=== PATIENT | female | born 1930 | race Caucasian/White ===

== ENCOUNTER 2017-06-13 15:03 | Emergency (ER) | payer OTHER, MEDICARE ==
[~2017-06-13] VITALS: Ht 144.8 cm; Wt 60.2 kg
[~2017-06-13 15:03] MED LIST: AMLO5TAB2 PO; APR25 PO; ASPEC81 PO; CALC0.2510 PO; CLC100X PO; COD LIVER OIL PO; DOFE125C PO; ENOX1INJ10 SQ; LSX20 PO; METO50TA16 PO; NTRSL3 UT; POLY335025 PO; PRLSR20 PO; SUPER B COMPLEX PO; WARF2TAB PO; WARF3TAB PO
[2017-06-13 15:05] VITALS: TEMP 37; Ht 144.8 cm; Wt 60.2 kg
[2017-06-13] MEDS ORDERED: LIDO/EPINEPHRINE/SOD BICARB 20 ML VIAL INFIL ONE (15:17)
[2017-06-13] MEDS ORDERED: ASPI81TA28 PO (15:42)
[2017-06-13] MEDS ORDERED: CALC-20 PO (15:42)
[2017-06-13] MEDS ORDERED: POLY335019 PO (15:42)
[2017-06-13] MEDS ORDERED: HYDR-4716 PO (15:42)
[2017-06-13] MEDS ORDERED: FURO-85 PO (15:42)
[2017-06-13] MEDS ORDERED: WARF2TAB PO ×2 (15:42)
[2017-06-13] MEDS ORDERED: METO50TA16 PO (15:42)
--- NOTE | 2017-06-13 15:58 | DIAGNOSTIC IMAGING REPORT ---
HEAD CT NONCONTRAST CT DOSE: 537.48 mGy.cm HISTORY: fall on coumadin. Rt supraorbital laceration. TECHNIQUE: Multiaxial CT images of the head were performed without the use of intravenous contrast. Automated exposure control was utilized for this study. A dose lowering technique was utilized adhering to the principles of ALARA. Comparison: None. Findings: The paranasal sinuses and mastoid air cells are clear. The calvarium and skull base are intact. There is no mass, hematoma, midline shift, acute infarct. White matter hypodensity is nonspecific but suggestive of microvascular ischemic change. The ventricles and sulci demonstrate mild age-related involutional changes. Right supraorbital soft tissue swelling with a small laceration. Impression: No acute intracranial abnormality. Right supraorbital soft tissue swelling with a small laceration. Electronically signed by: Chase Carrasco M.D. 06/13/2017 3:56 PM Dictated Date/Time: 06/13/2017 3:53 PM
--- NOTE | 2017-06-13 16:14 | EMERGENCY ROOM VISIT NOTE ---
History Report prepared by Cathi: Miguelito Priest Under the Supervision of: Dr. Hai Petersen D.O. First contact with patient: 15:10 Chief Complaint: FALL Stated Complaint: HEAD LACERATION FROM FALL History of Present Illness The patient is an 86 year old female who presents to the Emergency Room with complaints of sudden mechanical fall that occurred prior to arrival this afternoon. She is noted to have a resulting forehead laceration. The patent states that she was going into the door of the rehab [facility] for her '[facility] rehab, and she stumbled and fell. She notes that other than the laceration on her head, nothing else is bothering her. The patient adds that she is on Coumadin. Source of History: patient Onset: Prior to arrival this afternoon Position: other (global - fall) Quality: other (mechanical) Timing: other (sudden) Note: Associated symptoms: Forehead laceration from fall. Denies any other complaints. Review of Systems See HPI for pertinent positives & negatives. A total of 10 systems reviewed and were otherwise negative. Past Medical & Surgical Medical Problems: (1) Atrial fibrillation (2) Benign hypertension (3) CHF (congestive heart failure) (4) Chronic back pain (5) CKD (chronic kidney disease) stage 3, GFR 30-59 ml/min (6) Coronary artery disease (7) GERD (gastroesophageal reflux disease) (8) Hypertension Surgical Problems: (1) Status post cardiac catheterization (2) Status post cardiac pacemaker procedure (3) Status post coronary artery stent placement (4) Status post hysterectomy (5) Status post total knee replacement Family History Family history omitted secondary to patient's advanced age. Social History Smoking Status: Never Smoker Marital Status: Housing Status: lives with family Occupation Status: retired Current/Historical Medications Scheduled Aspirin (Aspirin Ec), 81 MG PO DAILY Calcium Carbonate-Vitamin D (Calcium 600 + D), 1 TAB PO BID Furosemide (Lasix), 20 MG PO PRN Hydralazine HCl (Hydralazine HCl), 1 TAB PO BID Metoprolol Tartrate (Lopressor) (Lopressor), 50 MG PO BID Polyethylene Glycol 3350 (Miralax), 17 GM PO DAILY Warfarin Sodium (Coumadin), 2 MG PO 4XWK Warfarin Sodium (Coumadin), 4 MG PO MWF Allergies Coded Allergies: Lisinopril (Verified Allergy, Mild, OTHER, 06/13/17) MAKES ME FEEL FUNNY Adhesives (Verified Allergy, Unknown, ., 06/13/17) Amiodarone (Verified Allergy, Unknown, ., 06/13/17) Physical Exam Vital Signs Date Time Temp Pulse Resp B/P (MAP) Pulse Ox O2 Delivery O2 Flow Rate FiO2 06/13/17 15:05 37.0 71 20 162/101 99 Room Air Physical Exam CONSTITUTIONAL/VITAL SIGNS: Reviewed / noted above. GENERAL: Non-toxic in appearance. INTEGUMENTARY: Warm, dry, and [place]. HEAD: 3.0 cm laceration in the supraorbital region. EYES: without scleral icterus or trauma. ENT/OROPHARYNX: clear and moist. LYMPHADENOPATHY/NECK: Is supple without lymphadenopathy or meningismus. RESPIRATORY: Lungs clear and equal. CARDIOVASCULAR: Regular rate and rhythm. GI/ABDOMEN: Soft and nontender. No organomegaly or pulsatile mass. No rebound or guarding. Normal bowel sounds. EXTREMITIES: Warm and well perfused. BACK: No CVA tenderness. NEUROLOGICAL: Intact without focal deficits. PSYCHIATRIC: normal affect. MUSCULOSKELETAL: Normally developed with good muscle tone. Medical Decision & Procedures ER Provider Diagnostic Interpretation: CT results as stated below per my review and radiologist interpretation: HEAD CT NONCONTRAST CT DOSE: 537.48 mGy.cm HISTORY: fall on coumadin. Rt supraorbital laceration. TECHNIQUE: Multiaxial CT images of the head were performed without the use of intravenous contrast. Automated exposure control was utilized for this study. A dose lowering technique was utilized adhering to the principles of ALARA. Comparison: None. Findings: The paranasal sinuses and mastoid air cells are clear. The calvarium and skull base are intact. There is no mass, hematoma, midline shift, acute infarct. White matter hypodensity is nonspecific but suggestive of microvascular ischemic change. The ventricles and sulci demonstrate mild age-related involutional changes. Right supraorbital soft tissue swelling with a small laceration. Impression: No acute intracranial abnormality. Right supraorbital soft tissue swelling with a small laceration. Electronically signed by: Chase Carrasco M.D. 06/13/2017 3:56 PM Dictated Date/Time: 06/13/2017 3:53 PM Medications Administered Medications (Trade) Dose Ordered Sig/Gal Route Start Time Stop Time Status Last Admin Dose Admin Lidocaine/ Epinephrine (Buffered Xylocaine/ Epinephrine 1% Inj) 20 ml [id number] ONCE INFIL 06/13/17 15:17 06/13/17 15:18 DC 06/13/17 15:25 20 ML Procedure Location: Right supraorbital region. Total length: 3.0 cm. Complexity: Simple. Verbal consent was obtained after the risks and benefits were explained, including but not limited to bleeding, scarring, infection, pain, and bone/joint /nerve damage. At this time, the risks of the procedure are less than the risks of NOT performing the procedure. A time out was taken and the correct patient and site identified. The skin was prepped with betadine. The target area was anesthetized with 2 cc's of 1% lidocaine without epinephrine. The skin was re- prepped with betadine and a sterile field set. The wound was explored for foreign bodies and none found. Examination revealed no injury to deep structures such as tendons, bone, or significant blood vessels. Debridement was not performed. The wound edges were approximated using 4, 4-0 simple interrupted nylon sutures. Hemostasis and excellent approximation was achieved. Antibacterial ointment and a sterile dressing applied. Detailed wound care instructions and signs and symptoms of infection reviewed with the patient. No complications and the patient tolerated the procedure well. ED Course 1512: Previous medical records were reviewed. The patient was evaluated in room A2. A complete history and physical examination was performed. 1615: On reevaluation, the patient is resting comfortably. I discussed the results and findings with the patient. She verbalized agreement of the treatment plan. She was discharged home. Medical Decision Differential includes close head injury, intracranial bleed, facial trauma, cervical spine trauma, chest and thoracic trauma, abdominal and intra-abdominal trauma, spine neurologic trauma, extremity trauma. This is an 86-year-old female who presents to the ED with a chief complaint of a fall. The patient normally walks with a cane. She states that she stumbled and tripped today on a ground-level and fell and hit her head. She is on Coumadin. The patient has a laceration to the right supraorbital region. Exam is otherwise unremarkable for any trauma or pain. The patient had the laceration sutured. CT scan of the brain did not show any acute intravenous trauma. The patient was felt to be stable for discharge. Sutures out in 10 days. Medication Reconcilliation Current Medication List: was personally reviewed by me Blood Pressure Screening Patient's blood pressure: Elevated blood pressure Blood pressure disposition: Elevated BP felt to be situational Impression Primary Impression: Fall Additional Impression: Laceration of face Scribe Attestation The scribe's documentation has been prepared under my direction and personally reviewed by me in its entirety. I confirm that the note above accurately reflects all work, treatment, procedures, and medical decision making performed by me. Departure Information Dispostion Home / Self-Care Referrals Melani Abraham M.D. (PCP) Patient Instructions My [facility] Additional Instructions Have sutures removed in 10 days by your doctor or return here for suture removal. Follow-up with your doctor for further care and evaluation in 1-4 days as needed. Return to the emergency department for worsening or new symptoms or any concerns. You have been examined and treated today on an emergency basis only. This is not a substitute for, or an effort to provide, complete comprehensive medical care. It is impossible to recognize and treat all injuries or illnesses in a single emergency department visit. It is therefore important that you follow up closely with your doctor. Call as soon as possible for an appointment. Problem Qualifiers
[2017-06-13 16:32] VITALS: BP 145/104; PULSE 72; O2SAT 98
== END 2017-06-13 16:33 | disposition home or self-care (01) ==
LOC: C.EDB 15:04 → C.EDA 16:33
DX: S01.81XA Laceration without foreign body of other part of head, initial encounter (principal); W01.0XXA Fall on same level from slipping, tripping and stumbling without subsequent striking against object, initial encounter; I48.91 Unspecified atrial fibrillation; I13.0 Hypertensive heart and chronic kidney disease with heart failure and stage 1 through stage 4 chronic kidney disease, or unspecified chronic kidney disease; N18.3 Chronic kidney disease, stage 3 (moderate); I50.9 Heart failure, unspecified; M54.9 Dorsalgia, unspecified; G89.29 Other chronic pain; I25.10 Atherosclerotic heart disease of native coronary artery without angina pectoris; K21.9 Gastro-esophageal reflux disease without esophagitis; Z79.82 Long term (current) use of aspirin; Z79.01 Long term (current) use of anticoagulants; Z95.0 Presence of cardiac pacemaker; Z95.5 Presence of coronary angioplasty implant and graft; Y93.01 Activity, walking, marching and hiking; Y92.89 Other specified places as the place of occurrence of the external cause

== ENCOUNTER 2018-08-22 11:41 | Inpatient (IN) ==
--- NOTE | 2018-08-22 12:27 | XRay Report ---
XR knee RT 3V CLINICAL HISTORY: R knee pain/ecchymosis COMPARISON: None. DISCUSSION: Total right knee arthroplasty. Good contact between prosthetic and underlying bone. Mild soft tissue edema. No significant joint effusion. No acute bony abnormality. IMPRESSION: Mild soft tissue edema. No acute bony abnormality post total right knee arthroplasty. The above report was generated using voice recognition software. It may contain grammatical, syntax or spelling errors. Electronically signed by: Elliott Mauro M.D. 08/22/2018 12:26 PM
[2018-08-22 13:55] LABS: Eosinophils # (auto) 0.12 K/uL (0-0.5); Eosinophils % (auto) 2.7 %; Hematocrit (blood only) 31.7 % (37-47); Hemoglobin 9.8 g/dL (12.0-16.0); Lymphocytes # (auto) 0.53 K/uL (1.2-3.4); Lymphocytes % (auto) 11.9 %; Mean Corpuscular Hgb Conc 30.9 g/dL (32-36); Mean Corpuscular Volume 90.3 fL (80-100); Mean Platelet Volume 10.2 fL (7.4-10.4); Monocytes # (auto) 0.66 K/uL (0.11-0.59); Monocytes % (auto) 14.8 %; Neutrophils # (auto) 3.15 K/uL (1.4-6.5); Neutrophils % (auto) 70.6 %; Platelet Count 164 K/uL (130-400); RDW Coefficient of Variation 17.4 % (11.5-14.5); RDW Standard Deviation 57.8 fL (36.4-46.3); Red Blood Count 3.51 M/uL (4.2-5.4); White Blood Count 4.46 K/uL (4.8-10.8)
[2018-08-22 14:12] LABS: Prothrombin Time 41.5 Seconds (9.0-12.0)
[2018-08-22 14:15] LABS: BUN Creatinine Ratio 29.2 (10-20); Calcium 8.8 mg/dl (8.5-10.1); Creatinine Clr Calc Pharmacy 22.9 ml/min; Est GFR (African American) 27.4; Est GFR (Non-African American) 23.6; Potassium 4.8 mmol/L (3.5-5.1)
[2018-08-22 14:17] LABS: INR 4.5 (0.9-1.1)
--- NOTE | 2018-08-22 14:22 | XRay Report ---
XR chest 2V routine CLINICAL HISTORY: fluid retention dyspnea COMPARISON STUDY: 08/13/2018 FINDINGS: Mild stable cardiomegaly. Permanent bipolar cardiac pacemaker. Chronic pleural reactive changes left base. Lungs otherwise appear clear. Bilateral shoulder arthropl asties. IMPRESSION: Chronic and postoperative change. No acute process. The above report was generated using voice recognition software. It may contain grammatical, syntax or spelling errors. Electronically signed by: Elliott Mauro M.D. 08/22/2018 2:21 PM
[2018-08-22 14:24] LABS: Albumin Globulin Ratio 0.9 (0.9-2); Bilirubin,Total 0.6 mg/dl (0.2-1); Creatine Kinase MB 3.2 ng/ml (0.5-3.6); Globulin 3.4 gm/dl (2.5-4.0); Total Protein 6.4 gm/dl (6.4-8.2); Troponin I 0.075 ng/ml (0-0.045)
[2018-08-22] MEDS ORDERED: FUROSEMIDE 40 MG/4 ML VIAL IV STA (14:46)
--- NOTE | 2018-08-22 14:54 | Emergency Department Note ---
ED Visit Note I have personally evaluated this patient examined her and reviewed the pertinent labs and data. I have discussed the case with Braeden Arechiga, the physician assistant floor covering printer and agree with the plan. Please refer to the PA note This patient comes in with lower externally pain and swelling bilaterally. She has had a 15 pound weight gain. The daughter tells me they have actually increased her Lasix and despite that she has had a weight gain and we gave her additional IV Lasix here. on my exam, she is in no respiratory distress. she does have pitting edema bilateral lower extremities. Her BNP is also significantly elevated her troponins mildly bumped as well. Given this, I do think she needs to be admitted/observe for further cardiac evaluation and diuresis. We will consult the [facility] hospitalist for this. .
--- NOTE | 2018-08-22 15:10 | Emergency Department Note ---
History of Present Illness General Chief complaint: Leg Injury/Pain Stated complaint: R leg pain/swelling, [place] Time Seen by Provider: 08/22/18 11:44 Source: patient and family Mode of arrival: EMS Limitations: no limitations History of Present Illness Maximum Pain Intensity: 5 This 87-year-old white female presents with her daughters, for evaluation of lower leg edema and weight gain. Patient was seen here a week ago for right hip pain. She has had 2 separate series of imaging studies that were negative for fracture or dislocation. She was sent to [facility] for a short-term rehab. While there, she has been noted to have a 14 pound weight gain over 9 days. Her daughters are concerned about the fluid retention in her legs. There is a history of chronic kidney disease stage III, CHF, and atrial fibrillation. She is on Coumadin. Her INR yesterday was 4.98. She is unsure if she took Coumadin this morning. The patient denies any chest pain, shortness of breath, or abdominal pain. No other complaints at this point. Inserting her record, it was noted that she is on Lasix 20 mg twice daily. This was just increased to 40 mg 3 times daily yesterday afternoon. She is scheduled to be reevaluated on Friday. Home Medications Home Medications Medication Instructions Recorded Confirmed Type aspirin [Aspir-81] 81 mg PO 3XWK 07/29/18 08/22/18 History atorvastatin 80 mg PO QAM 07/29/18 08/22/18 History donepezil 5 mg PO QAM 07/29/18 08/22/18 History furosemide 20 mg PO BID 07/29/18 08/22/18 History hydralazine 25 mg PO BID 07/29/18 08/22/18 History metoprolol tartrate 50 mg PO QAM 07/29/18 08/22/18 History polyethylene glycol 3350 [Miralax] 17 g PO DAILY PRN 07/29/18 08/22/18 History warfarin 2 mg PO DAILY 07/29/18 08/22/18 History calcium carbonate-vitamin D3 1 tab PO QAM 08/13/18 08/22/18 History [Caltrate 600 + D] docusate sodium [Colace] 100 mg PO BID #60 cap 08/13/18 08/22/18 Rx ferrous sulfate 325 mg PO QAM 08/13/18 08/22/18 History oxycodone 5 mg PO Q6H #14 tab 08/13/18 08/22/18 Rx sennosides [Senokot] 8.6 mg PO HS #30 tab 08/13/18 08/22/18 Rx Allergies Allergy/AdvReac Type Severity Reaction Status Date / Time lisinopril Allergy Mild OTHER Verified 08/22/18 14:06 adhesive Allergy Unknown . Verified 08/22/18 14:06 amiodarone Allergy Unknown . Verified 08/22/18 14:06 Past Med/Surg History Medical History Acute hip pain (Acute) A-fib CHF (congestive heart failure) (Chronic) GERD (gastroesophageal reflux disease) (Chronic) Hypertension (Chronic) CKD (chronic kidney disease) stage 3, GFR 30-59 ml/min (Chronic) Rotator cuff injury (Acute 12/23/13) Surgical History Status post coronary artery stent placement (Chronic) Status post cardiac pacemaker procedure (Chronic) Status post cardiac catheterization (Chronic) Status post hysterectomy (Chronic) Status post total knee replacement (Chronic) Family History Other Cancer Social History marital status: / Current Living Situation: Long Term current occupational status: retired Other Information That Helps Us Care for You: No Feels Safe at Home: Yes Safety Concerns: Feels Safe At This Time Smoking Status: Never smoker Do You Dip or Chew Tobacco: No Second Hand Exposure: No Tobacco Cessation Education Requested by Patient: No Hx Alcohol Use: No Hx Substance Use: No Beliefs That Will Affect Care: None Preferred Language: Turkmen Communication Ability: Effective Burn Out Tender Lace Required: No Review of Systems A total of 10 systems reviewed and were otherwise negative Physical Exam Vital Signs Vital Signs - 24 hr 08/22/18 11:52 08/22/18 13:46 08/22/18 15:08 Temperature 36.5 C Temperature Source Oral Sepsis Recent Fever Within 48 Hours No Sepsis New/Unexplained Change in Mental Status No Sepsis Action Taken by Nursing No Action Required Pulse Rate 94 H Pulse Rate [Apical] 90 75 Respiratory Rate 20 22 18 Respiratory Effort / Characteristics Non-Labored Spontaneous Respiratory Depth Normal Respiratory Pattern Blood Pressure 156/73 H Blood Pressure [Left Arm] 140/73 158/70 H Blood Pressure Mean 100 Blood Pressure Mean [Left Arm] 95 99 Blood Pressure Position Lying Pulse Oximetry 98 98 97 Oxygen Delivery Method Room Air Room Air Room Air 08/22/18 16:15 08/22/18 17:01 Temperature Temperature Source Sepsis Recent Fever Within 48 Hours Sepsis New/Unexplained Change in Mental Status Sepsis Action Taken by Nursing Pulse Rate Pulse Rate [Apical] 64 Respiratory Rate 18 Respiratory Effort / Characteristics Non-Labored Spontaneous Non-Labored Spontaneous Respiratory Depth Normal Normal Respiratory Pattern Regular Blood Pressure Blood Pressure [Left Arm] 120/61 Blood Pressure Mean Blood Pressure Mean [Left Arm] 80 Blood Pressure Position Pulse Oximetry 97 Oxygen Delivery Method Room Air Room Air General: Well-developed, well-nourished, elderly white female no acute distress. Laying on the bed. Alert and oriented. Skin: Warm and dry with good turgor. No rashes or lesions. Visible ecchymosis over the anterior and medial aspect of her right knee and lucio. No erythema. The patient is not diaphoretic. No abrasions. 2+ pitting edema in both lower extremities from her thighs to her feet. It is diffuse. HEENT: Normocephalic atraumatic. Eyes PERRLA, EOMI. No conjunctiva or scleral injection. Nares patent bilaterally without turbinate enlargement. No significant drainage. No epistaxis. Oropharynx without erythema or exudate. Uvula midline, oral mucosa moist. No lesions present. Heart: Heart RRR. Systolic murmur is noted. No GR. Peripheral pulses are 2+. Lungs: Lungs are clear to auscultation. No crackles rhonchi or wheezing. Good air movement. The patient is able to take a deep breath. Abdomen: Abdomen was inspected, auscultated, and palpated. Obese. Bowel sounds present x 4. Soft, nontender to palpation. No hepato-splenomegaly. No masses noted. No rebound. Musculoskeletal: Gross motor function of the upper and lower extremities is intact and unremarkable. No pain with logrolling of either hip. No pain with passive motion of either knee. Stable collateral ligaments in the right knee. No palpable defect in the patellar tendon or quadriceps tendon. She is able to perform a straight leg raise on the left. She is unable to perform a straight leg raise on the right. She is able to extend her knee from a flexed to straight in position against resistance, indicating integrity of the patellar tendon and quadriceps tendon. Neurologic: Gross sensation is intact across both lower extremity by soft touch. Course Administered Medications Discontinued Medications Furosemide (Lasix) 20 mg IV NOW STA Stop: 08/22/18 14:47 Last Admin: 08/22/18 15:04 Dose: 20 mg Medical Decision Making Differential Diagnosis ACS, acute TX, worsening CHF, tumor, DVT, and lymphedema were considered among others Medical Records Attestation: I reviewed the patient's medical records. Home Medications Current Medication List: was personally reviewed by me Laboratory Data Attestation: I reviewed the patient's lab results. CBC, complete metabolic panel, troponin, BNP, CK/CK-MB, and PT/INR were obtained. CBC shows mild anemia unchanged from previous exam. Renal panel shows kidney disease with BUN of 56 and creatinine 1.9, not significantly changed from previous exam. INR remains high at 4.5. LFTs are unremarkable. CK is normal at 68. MB fraction is normal at 3.2. Troponin is elevated at 0.075. BNP is also elevated significantly at 19,258. Result diagrams: 08/22/18 13:41 08/22/18 13:41 Lab Results 08/22/18 08/22/18 08/22/18 Range/Units 13:41 13:41 13:41 WBC 4.46 L (4.8-10.8) K/uL RBC 3.51 L (4.2-5.4) M/uL Hgb 9.8 L (12.0-16.0) g/dL Hct 31.7 L (37-47) % MCV 90.3 (80-100) fL MCH 27.9 (25-34) pg MCHC 30.9 L (32-36) g/dL RDW Std Deviation 57.8 H (36.4-46.3) fL RDW Coeff of Mykel 17.4 H (11.5-14.5) % Plt Count 164 (130-400) K/uL MPV 10.2 (7.4-10.4) fL Immature Gran % (Auto) 0.0 % Neut % (Auto) 70.6 % Lymph % (Auto) 11.9 % [place] % (Auto) 14.8 % Eos % (Auto) 2.7 % Baso % (Auto) 0.0 % Immature Gran # (Auto) 0.00 (0.00-0.02) K/uL Neut # (Auto) 3.15 (1.4-6.5) K/uL Lymph # (Auto) 0.53 L (1.2-3.4) K/uL [place] # (Auto) 0.66 H (0.11-0.59) K/uL Eos # (Auto) 0.12 (0-0.5) K/uL Baso # (Auto) 0.00 (0-0.2) K/uL PT 41.5 H (9.0-12.0) Seconds INR 4.5 H (0.9-1.1) Sodium 137 (136-145) mmol/L Potassium 4.8 (3.5-5.1) mmol/L Chloride 105 (98-107) mmol/L Carbon Dioxide 26 (21-32) mmol/L Anion Gap 6.0 (3-11) BUN 56 H (7-18) mg/dl Creatinine 1.90 H (0.6-1.2) mg/dl Est Cr Clr Drug Dosing 22.9 ml/min Est GFR ( Amer) 27.4 Est GFR (Non-Af Amer) 23.6 BUN/Creatinine Ratio 29.2 H (10-20) Glucose 89 (70-99) mg/dl Calcium 8.8 (8.5-10.1) mg/dl Total Bilirubin 0.6 (0.2-1) mg/dl AST 32 (15-37) U/L ALT 16 (12-78) U/L Alkaline Phosphatase 98 (45-117) U/L Total Creatine Kinase 68 (26-192) U/L CK-MB (CK-2) 3.2 (0.5-3.6) ng/ml CK/CKMB % Calc 4.7 H (0-3.0) Troponin I 0.075 H* (0-0.045) ng/ml NT-Pro-B Natriuret Pep 77754 H (0-1800) pg/ml Total Protein 6.4 (6.4-8.2) gm/dl Albumin 3.0 L (3.4-5.0) gm/dl Globulin 3.4 (2.5-4.0) gm/dl Albumin/Globulin Ratio 0.9 (0.9-2) Imaging Data Attestation: I personally reviewed and interpreted this imaging study as follows : My Impression: Chest x-ray obtained today shows bilateral shoulder implants. Retained pacemaker. Chronic changes. No acute process. Right knee films obtained today show a retained prosthesis. [place] patella. No acute findings. No fracture or dislocation. No joint effusion. Soft tissue edema is noted. ECG Data Attestation: I personally reviewed and interpreted this ECG as follows: Additional Comments: EKG shows a paced rhythm with a rate of 72. No acute changes compared with her EKG from 9 days ago. This was reviewed with Dr. Hess. No acute ST or T wave changes. Blood Pressure Blood Pressure Findings: Normal blood pressure MDM Narrative Patient and her daughters were educated regarding today's findings. Conservative care measures were discussed. IV was established. Labs were obtained. Radiographic imaging of her chest and her right knee were also obtained. I did review her medical records. She has had 2 separate imaging studies of her pelvis and right hip. No fracture or other abnormality was noted. She did have a Doppler ultrasound of her right lower leg yesterday. This was negative for DVT. This was done through the mobile unit at [facility]. INR yesterday was 4.98. It is unclear if she received Coumadin this morning. INR remains elevated at 4.5. Her daughters were concerned about the ecchymosis on the inner aspect of her leg. Given her elevated INR, I suspect it is just residual from her proximal hip flexor injury 9 days ago, or from a slight contusion. They were reassured that I find no instability of her right knee or loosening of her implant. I find no evidence for DVT. She does have significant fluid retention in both lower extremities consistent with worsening CHF. This is supported by her elevated BNP. She will require monitoring due to her elevated troponin. Despite her fluid retention, she remains without clinical respiratory findings and oxygen saturation remains adequate at 97% on room air. She was given Lasix 20 mg IV while in the ED, to supplement the 20 mg she took orally this morning. I did speak with her daughters about holding her Coumadin until her INR has reduced. I did consult the [facility] hospitalist service for admission. They did come to the ED to evaluate the patient. Please see that dictation for final management. She remained stable while in the ED. Patient was seen in conjunction with Dr. Hess, who also evaluated the patient and can with today's diagnosis and treatment plan. Impression & Plan CHF (congestive heart failure), Peripheral edema, Contusion of leg, right Discharge Plan Visit Data Chief Complaint: Leg Injury/Pain Stated Complaint: R leg pain/swelling, [place] ED Provider: Ismael Hess ED Midlevel Provider: Braeden Arechiga Discharge Problem: CHF (congestive heart failure), Peripheral edema, Contusion of leg, right Discharge Instructions Interventions: ED Discharge Assessment Last Done: 08/22/18 17:30 Forms Stand Alone Forms: My [facility] [place] Prescriptions Prescriptions: No Action atorvastatin 80 mg tablet 80 mg PO QAM RF: 0 donepezil 5 mg tablet 5 mg PO QAM RF: 0 polyethylene glycol 3350 [Miralax] 17 gram Powder In Packet 17 g PO DAILY PRN (Reason: Constipation) RF: 0 hydralazine 25 mg tablet 25 mg PO BID RF: 0 aspirin [Aspir-81] 81 mg Tablet,Delayed Release (Dr/Ec) 81 mg PO 3XWK RF: 0 warfarin 2 mg tablet 2 mg PO DAILY RF: 0 metoprolol tartrate 50 mg tablet 50 mg PO QAM RF: 0 furosemide 20 mg tablet 20 mg PO BID RF: 0 ferrous sulfate 325 mg (65 mg iron) Tablet 325 mg PO QAM RF: 0 calcium carbonate-vitamin D3 [Caltrate 600 + D] 600 mg (1,500 mg)-800 unit Tablet,Chewable 1 tab PO QAM RF: 0 sennosides [Senokot] 8.6 mg tablet 8.6 mg PO HS Qty: 30 RF: 0 docusate sodium [Colace] 100 mg capsule 100 mg PO BID Qty: 60 RF: 0 oxycodone 5 mg tablet 5 mg PO Q6H Qty: 14 RF: 0 Referrals Referrals: Camilo Randall [Primary Care Provider] -
--- NOTE | 2018-08-22 16:16 | History & Physical Report ---
Date of Service August 22, 2018 Assessment & Plan (1) CHF (congestive heart failure): Lasix 80 every 12, nephrology and cardiology eval, 2D echo (2) Volume overload: Lasix as mentioned above (3) CKD (chronic kidney disease) stage 3, GFR 30-59 ml/min: Continue Lasix, will give 80 mg IV every 12, nephrology and cardiology to see, we will monitor daily labs closely (4) Acute hip pain: I ordered a CT of the hip without contrast (5) A-fib: Supratherapeutic on warfarin, will give Coumadin per INR, continue metoprolol (6) GERD (gastroesophageal reflux disease): Currently not on a PPI we will monitor (7) Hypertension: Lasix, metoprolol, will monitor History of Present Illness Chief Complaint: LE swelling, Hip and knee pain R>L Primary Care Provider: Camilo Randall 87-year-old female with a past medical history of hypertension, GERD, CAD, chronic kidney disease, solitary kidney, atrial fibrillation, sick sinus syndrome, degenerative disc disease of the lumbar spine who is here week ago with hip pain was treated and released went to [facility] for rehab. While at [facility] she developed lower extremity edema right greater than left which increased over the last several days. She has been having persistent hip pain she had an x-ray here an x-ray at [facility] in [place] that were both negative. She cannot have an MRI secondary to pacemaker and knee replacement. Her daughter noticed lower extremity swelling that began about 2 days ago getting increasingly worse it started on the right and increased on the left as well. Upon presentation she was found to have a BNP in the 19,000 range. ROS-No Headache, No Visual Changes, No Fever, No Chills, No Neck Pain or Stiffness, No Chest Pain, No Palpitations, no SOB, no MARTIN, positive cough, No Sputum, No Wheezing, No Abdominal Pain, No Diarrhea, No Hematemesis, No Hemoptysis, +14 pound weight gain over the past week, No Flank pain, No Melena, No Hematochezia, No Frequency, No Urgency, No Burning, No Hematuria, No Rashes, No Diaphoresis. Appetite is Normal, positive bilateral lower extremity edema right greater than left Physical Exam Gen-AAO x 3, NAD, Afebrile, obese with a BMI of 32 Head-NCAT, EOMI, PERRLA, Anicteric Sclera, No Posterior Pharyngeal Erythema Neck-Supple, No JVD, No Thyromegaly, No Masses, No LAD, No Bruits Lungs-Clear to Auscultation Bilaterally, No Rales, No Rhonchi, No Wheezing, No Crepitus Chest-No S4, +S1, +S2, No S3, No Murmurs, No Rubs, No Gallops, No Ectopy Abdomen-Soft, Bowel Sounds Present, Non Tender, Non Distended, No Hepatomegaly, No Splenomegaly, No Palpable Masses, No Rebound, No Rigidity, No Guarding Musculoskeletal-Full Range of Motion Bilaterally, No CVAT Extremities-No Cyanosis, No Clubbing, positive edema. Nuero-Cranial Nerves II-XII grossly intact, Motor WNL, DTRs WNL, Strength WNL, No Focal Psych-Normal Mood PMH-hypertension, GERD, CAD, CKD, solitary kidney, pacemaker insertion, A. fib, sick sinus syndrome, degenerative disease. PSH-bilateral shoulder surgery with replacements, pacemaker insertion, appendectomy, total abdominal hysterectomy FH-5 brothers 1 of which of cancer the other for healthy, one sister of cancer, another sister alive and healthy, one son of cancer, 3 other sons are alive and healthy daughters are healthy. SH-no tobacco drugs or alcohol, she lives alone, she will be living in a personal care facility, she is a . Meds reviewed and Reconciled Labs Reviewed Allergies Allergy/AdvReac Type Severity Reaction Status Date / Time lisinopril Allergy Mild OTHER Verified 08/22/18 14:06 adhesive Allergy Unknown . Verified 08/22/18 14:06 amiodarone Allergy Unknown . Verified 08/22/18 14:06 Home Medications Home Medications Medication Instructions Recorded Confirmed Type aspirin [Aspir-81] 81 mg PO 3XWK 07/29/18 08/22/18 History atorvastatin 80 mg PO QAM 07/29/18 08/22/18 History donepezil 5 mg PO QAM 07/29/18 08/22/18 History furosemide 20 mg PO BID 07/29/18 08/22/18 History hydralazine 25 mg PO BID 07/29/18 08/22/18 History metoprolol tartrate 50 mg PO QAM 07/29/18 08/22/18 History polyethylene glycol 3350 [Miralax] 17 g PO DAILY PRN 07/29/18 08/22/18 History warfarin 2 mg PO DAILY 07/29/18 08/22/18 History calcium carbonate-vitamin D3 1 tab PO QAM 08/13/18 08/22/18 History [Caltrate 600 + D] docusate sodium [Colace] 100 mg PO BID #60 cap 08/13/18 08/22/18 Rx ferrous sulfate 325 mg PO QAM 08/13/18 08/22/18 History oxycodone 5 mg PO Q6H #14 tab 08/13/18 08/22/18 Rx sennosides [Senokot] 8.6 mg PO HS #30 tab 08/13/18 08/22/18 Rx Past Med/Surg History Social History marital status: / Current Living Situation: Alone current occupational status: retired Feels Safe at Home: Yes Smoking Status: Never smoker Preferred Language: Ukrainian Physical Exam 2 Vital Signs (Past 24 Hours): Last Vital Signs Temp 36.5 C 08/22/18 11:52 Pulse 75 08/22/18 15:08 Resp 18 08/22/18 15:08 BP 158/70 H 08/22/18 15:08 Pulse Ox 97 08/22/18 15:08 Results & Data Laboratory Results Allergies lisinopril Allergy (Mild, Verified 08/22/18 14:06) OTHER adhesive Allergy (Unknown, Verified 08/22/18 14:06) . amiodarone Allergy (Unknown, Verified 08/22/18 14:06) . Height/Weight/Isolation Height 5 ft 4 in Weight 85.5 kg CBC 08/22/18 08/22/18 08/22/18 13:41 13:41 13:41 WBC 4.46 L RBC 3.51 L Hgb 9.8 L Hct 31.7 L MCV 90.3 MCH 27.9 MCHC 30.9 L RDW Std Deviation 57.8 H RDW Coeff of Mykel 17.4 H Plt Count 164 MPV 10.2 Immature Gran % (Auto) 0.0 Neut % (Auto) 70.6 Lymph % (Auto) 11.9 [place] % (Auto) 14.8 Eos % (Auto) 2.7 Baso % (Auto) 0.0 Immature Gran # (Auto) 0.00 Neut # (Auto) 3.15 Lymph # (Auto) 0.53 L [place] # (Auto) 0.66 H Eos # (Auto) 0.12 Baso # (Auto) 0.00 PT 41.5 H INR 4.5 H Sodium 137 Potassium 4.8 Chloride 105 Carbon Dioxide 26 Anion Gap 6.0 BUN 56 H Creatinine 1.90 H Est Cr Clr Drug Dosing 22.9 Est GFR ( Amer) 27.4 Est GFR (Non-Af Amer) 23.6 BUN/Creatinine Ratio 29.2 H Glucose 89 Calcium 8.8 Total Bilirubin 0.6 AST 32 ALT 16 Alkaline Phosphatase 98 Total Creatine Kinase 68 CK-MB (CK-2) 3.2 CK/CKMB % Calc 4.7 H Troponin I 0.075 H* NT-Pro-B Natriuret Pep 62698 H Total Protein 6.4 Albumin 3.0 L Globulin 3.4 Albumin/Globulin Ratio 0.9 Chemistry 08/22/18 13:41 Sodium 137 Potassium 4.8 Chloride 105 Carbon Dioxide 26 Anion Gap 6.0 BUN 56 H Creatinine 1.90 H Glucose 89 _ (1) Acute hip pain Laterality: right Qualified Code(s): M25.551 - Pain in right hip
[2018-08-22] MEDS ORDERED: OXYCODONE HCL IR 5 MG TAB (IMMEDIATE RELEASE) PO PRN (18:42)
[2018-08-22] MEDS ORDERED: POLYETHYLENE (MIRALAX) 17 GM PACK PO PRN (18:42)
[2018-08-22] MEDS ORDERED: ONDANSETRON INJ 2 MG/ML 2 ML VIAL IV PRN (18:42)
--- NOTE | 2018-08-22 20:11 | CT Scan Report ---
CT femur RT wo con CT DOSE: 549.26 mGy.cm HISTORY: Pain. Edema. Hip pain/Concern for fracture TECHNIQUE: Multiaxial CT images of the were performed and reformatted in the sagittal and coronal plane without the use of contrast. A dose lowering technique was utilized adhering to the principle s of ALARA. COMPARISON: None. FINDINGS: Diffuse subcutaneous cellulitis and/or soft tissue edema throughout the entire thigh. No ev idence for drainable abscess or collection. The right femur appears to be intact. There is a total right knee arthroplasty. There are moderate de generative changes of the right hip. There is a component of calcific trochanteric bursitis. Soft tissue edematous change is seen circumferentially about the thigh is also lateral to the right h ip. Evaluation of all additional bony structures shows no acute bony abnormality. Very limited evaluation of the left thigh shows at least a component of soft tissue edematous change at that region as well. IMPRESSION: 1. No acute process of the right femur. 2. Diffuse soft tissue edema versus cellulitis throughout the right thigh extending from the level of the right hip to the right knee. 3. Calcific trochanteric bursitis right hip. 4. No evidence for a drainable abscess or collection. The above report was generated using voice recognition software. It may contain grammatical, syntax or spelling errors. Electronically signed by: Elliott Mauro M.D. 08/22/2018 8:10 PM
[2018-08-22] MEDS: ACETAMINOPHEN 325 MG TAB PO PRN (20:41)
[2018-08-22] MEDS: FUROSEMIDE 80 MG in SYRINGE 0 ML IV SCH (20:42)
[2018-08-22] MEDS: DOCUSATE SODIUM 100 MG CAP PO SCH (20:43)
[2018-08-22] MEDS: METOPROLOL TARTRATE 50 MG TAB PO SCH (20:43)
[2018-08-22] MEDS: SENNA 8.6 MG TAB PO SCH (20:43)
[2018-08-22] MEDS ORDERED: FUROSEMIDE 40 MG/4 ML VIAL IV SCH (21:00)
[2018-08-23 06:57] LABS: Hematocrit (blood only) 32.1 % (37-47); Hemoglobin 9.7 g/dL (12.0-16.0); Mean Corpuscular Hgb Conc 30.2 g/dL (32-36); Mean Corpuscular Volume 91.2 fL (80-100); Mean Platelet Volume 11.2 fL (7.4-10.4); Platelet Count 179 K/uL (130-400); RDW Coefficient of Variation 17.3 % (11.5-14.5); RDW Standard Deviation 58.1 fL (36.4-46.3); Red Blood Count 3.52 M/uL (4.2-5.4); White Blood Count 4.18 K/uL (4.8-10.8)
[2018-08-23 07:07] LABS: INR 2.8 (0.9-1.1); Prothrombin Time 26.8 Seconds (9.0-12.0)
[2018-08-23 07:39] LABS: Albumin Level 2.9 gm/dl (3.4-5.0); BUN Creatinine Ratio 27.4 (10-20); Calcium 9.1 mg/dl (8.5-10.1); Creatinine Clr Calc Pharmacy 20.5 ml/min; Est GFR (African American) 24.7; Est GFR (Non-African American) 21.3; Potassium 4.3 mmol/L (3.5-5.1)
[2018-08-23 07:48] LABS: Albumin Globulin Ratio 0.9 (0.9-2); Bilirubin,Total 0.5 mg/dl (0.2-1); Globulin 3.2 gm/dl (2.5-4.0); Total Protein 6.1 gm/dl (6.4-8.2); Troponin I 0.085 ng/ml (0-0.045)
[2018-08-23] MEDS: DOCUSATE SODIUM 100 MG CAP PO SCH ×2 (07:49→21:11)
[2018-08-23] MEDS: CALCIUM 600MG + VIT D 400 IU TAB PO SCH (07:49)
[2018-08-23] MEDS: FERROUS SULFATE 325 MG TAB PO SCH (07:50)
[2018-08-23] MEDS: DONEPEZIL HCL 5 MG TAB PO SCH (07:50)
[2018-08-23] MEDS: ATORVASTATIN 40 MG TAB PO SCH (07:50)
[2018-08-23] MEDS: METOPROLOL TARTRATE 50 MG TAB PO SCH (07:51)
[2018-08-23] MEDS: FUROSEMIDE 80 MG in SYRINGE 0 ML IV SCH (10:38)
--- NOTE | 2018-08-23 13:30 | Nephrology Consultation ---
Date of Consultation August 23, 2018 Assessment & Plan (1) CKD (chronic kidney disease) stage 4, GFR 15-29 ml/min: baseline creatinien 2.0-2.2 > she is at baseline at clinic last month w/ me in hindsight her weight was already at higher end of her range at 74.8 kg; she wsa 85.5 kg here on presentation and down to 81.7 kg today -will lower lasix to 40 mg IV bid to preserve renal function -avoid nsaids in pain control -anemai of CKD >> declines ravinder; check hgb q 48 hrs Present on Admission?: Yes (2) Peripheral edema: -lowered lasix to 40 mg iv bid -cont daily bmp -cont standing daily wts -modified FR to 1.5L but did order <2 gm daily Na diet -f/u cardiology recs Present on Admission?: Yes (3) Hypertension: controlled; cont current meds -cont low Na diet Present on Admission?: Yes History of Present Illness Reason for Consultation: volume management Requesting Physician: Dr Mims Attending Physician: Valentin Gamboa MD History of Present Illness 87 y/o F whom I'm asked to follow for severe chronic renal dysfunction while she is diuresed. PMH includes CKD4 w/ creatinine in the 2s and albuminuria, solitary kidney after remote nephrectomy for gu stones, longstanding CAD and A fib w/ pacer on coumadin, TIA, chronic shoulder pain s/p BL arthroplasties, and spring 2017 foot fracture; anemia of chronic disease for which she has been offered epo but has historically declined. Admitted to [facility] february 2018 for volume overload. When I saw her in CKD clinic last month, she was not weighing herself daily and had cut bid lasix dosing to 20 mg daily b/c of urinary frequency; she was tolerating these measures at that time. Her clinic weights are quite labile (comes to clinic in w/c) and range from 69 to 74.5 kg. Her presenting wt yesterday was 85.5 kg, to 81.7 kg today on standing scales: 4 kg off yesterday to today w/ diuresis using lasix 80 mg IV bid. her baseliine creatinine since this summer is 2.0-2.2; it is in this range on presentation. [facility] after presenting here w/ hip pain; swelling and wt gain began to worsen there as well. Allergies Allergy/AdvReac Type Severity Reaction Status Date / Time lisinopril Allergy Mild OTHER Verified 08/22/18 14:06 adhesive Allergy Unknown . Verified 08/22/18 14:06 amiodarone Allergy Unknown . Verified 08/22/18 14:06 Home Medications Home Medications Medication Instructions Recorded Confirmed Type aspirin [Aspir-81] 81 mg PO 3XWK 07/29/18 08/22/18 History atorvastatin 80 mg PO QAM 07/29/18 08/22/18 History donepezil 5 mg PO QAM 07/29/18 08/22/18 History furosemide 20 mg PO BID 07/29/18 08/22/18 History hydralazine 25 mg PO BID 07/29/18 08/22/18 History metoprolol tartrate 50 mg PO QAM 07/29/18 08/22/18 History polyethylene glycol 3350 [Miralax] 17 g PO DAILY PRN 07/29/18 08/22/18 History warfarin 2 mg PO DAILY 07/29/18 08/22/18 History calcium carbonate-vitamin D3 1 tab PO QAM 08/13/18 08/22/18 History [Caltrate 600 + D] docusate sodium [Colace] 100 mg PO BID #60 cap 08/13/18 08/22/18 Rx ferrous sulfate 325 mg PO QAM 08/13/18 08/22/18 History oxycodone 5 mg PO Q6H #14 tab 08/13/18 08/22/18 Rx sennosides [Senokot] 8.6 mg PO HS #30 tab 08/13/18 08/22/18 Rx Patient History Medical History Acute hip pain (Acute) A-fib CHF (congestive heart failure) (Chronic) GERD (gastroesophageal reflux disease) (Chronic) Hypertension (Chronic) CKD (chronic kidney disease) stage 3, GFR 30-59 ml/min (Chronic) Rotator cuff injury (Acute 12/23/13) Surgical History Status post coronary artery stent placement (Chronic) Status post cardiac pacemaker procedure (Chronic) Status post cardiac catheterization (Chronic) Status post hysterectomy (Chronic) Status post total knee replacement (Chronic) Family History Other Cancer Social History marital status: / Current Living Situation: Retirement current occupational status: retired Other Information That Helps Us Care for You: No Feels Safe at Home: Yes Safety Concerns: Feels Safe At This Time Smoking Status: Never smoker Do You Dip or Chew Tobacco: No Second Hand Exposure: No Tobacco Cessation Education Requested by Patient: No Hx Alcohol Use: No Hx Substance Use: No Beliefs That Will Affect Care: None Communication Ability: Effective Review of Systems Constitutional: + fatigue, + weakness and + weight gain; no fever and no body aches Eyes: no worsening vision Ear, Nose, Mouth, Throat: no dry mouth Respiratory: + dyspnea on exertion; no cough Cardiovascular: + dyspnea on exertion and + edema; no chest pain and no palpitations Gastrointestinal: no abdominal pain, no early satiety, no vomiting, no dysphagia and no change in bowel habits Genitourinary (Female): + urinary frequency; no dysuria, no urinary hesitancy, no urinary urgency, no nocturia and no hematuria Musculoskeletal: + joint pain, + stiffness, + myalgia and + muscle weakness Integumentary: no rash and no non-healing lesions Neurologic: no localized weakness, no loss of sensation, no paresthesia, no abnormal movements and no dizziness Psychiatric: no depression, no anxiety and no confusion Endocrine: + fatigue and + cold intolerance Hematologic / Lymphatic: no easy bleeding Physical Exam 2 Vital Signs (Past 24 Hours): Last Vital Signs Temp 36.7 C 08/23/18 11:43 Pulse 78 08/23/18 11:43 Resp 16 08/23/18 11:43 BP 126/85 08/23/18 11:43 Pulse Ox 98 08/23/18 11:43 Constitutional: well developed, well nourished and cooperative up in chair on RA Eyes: EOM intact bilaterally ENMT: Ears: no external ear abnormality Nose: no external nose abnormality Mouth: + dry oral mucous membranes Neck: no nuchal rigidity Respiratory: normal respiratory effort Auscultation: + diminished lung sounds Cardiovascular: Rate/Rhythm: regular rate and regular rhythm Extremities: + edema (1-2+ BL ankles) Gastrointestinal (Abdomen): Inspection/Auscultation: normal bowel sounds Percussion/Palpation: abdomen soft; abdomen nontender Musculoskeletal: Extremities: strength 5/5 throughout Skin: no rashes, warm and dry Neurologic: chapman, fluent speech, no tremor Psychiatric: A+Ox3, euthymic affect Genitourinary: no retana Results & Data Laboratory Results Abnormal lab results 08/22/18 08/22/18 08/22/18 Range/Units 13:41 13:41 13:41 WBC 4.46 L (4.8-10.8) K/uL RBC 3.51 L (4.2-5.4) M/uL Hgb 9.8 L (12.0-16.0) g/dL Hct 31.7 L (37-47) % MCHC 30.9 L (32-36) g/dL RDW Std Deviation 57.8 H (36.4-46.3) fL RDW Coeff of Mykel 17.4 H (11.5-14.5) % MPV (7.4-10.4) fL Lymph # (Auto) 0.53 L (1.2-3.4) K/uL [place] # (Auto) 0.66 H (0.11-0.59) K/uL PT 41.5 H (9.0-12.0) Seconds INR 4.5 H (0.9-1.1) BUN 56 H (7-18) mg/dl Creatinine 1.90 H (0.6-1.2) mg/dl BUN/Creatinine Ratio 29.2 H (10-20) CK/CKMB % Calc 4.7 H (0-3.0) Troponin I 0.075 H* (0-0.045) ng/ml NT-Pro-B Natriuret Pep 36895 H (0-1800) pg/ml Total Protein (6.4-8.2) gm/dl Albumin 3.0 L (3.4-5.0) gm/dl 08/22/18 08/23/18 08/23/18 Range/Units 20:58 00:12 06:01 WBC 4.18 L (4.8-10.8) K/uL RBC 3.52 L (4.2-5.4) M/uL Hgb 9.7 L (12.0-16.0) g/dL Hct 32.1 L (37-47) % MCHC 30.2 L (32-36) g/dL RDW Std Deviation 58.1 H (36.4-46.3) fL RDW Coeff of Mykel 17.3 H (11.5-14.5) % MPV 11.2 H (7.4-10.4) fL Lymph # (Auto) (1.2-3.4) K/uL [place] # (Auto) (0.11-0.59) K/uL PT (9.0-12.0) Seconds INR (0.9-1.1) BUN (7-18) mg/dl Creatinine (0.6-1.2) mg/dl BUN/Creatinine Ratio (10-20) CK/CKMB % Calc (0-3.0) Troponin I 0.082 H* 0.078 H* (0-0.045) ng/ml NT-Pro-B Natriuret Pep (0-1800) pg/ml Total Protein (6.4-8.2) gm/dl Albumin (3.4-5.0) gm/dl 08/23/18 08/23/18 Range/Units 06:01 06:01 WBC (4.8-10.8) K/uL RBC (4.2-5.4) M/uL Hgb (12.0-16.0) g/dL Hct (37-47) % MCHC (32-36) g/dL RDW Std Deviation (36.4-46.3) fL RDW Coeff of Mykel (11.5-14.5) % MPV (7.4-10.4) fL Lymph # (Auto) (1.2-3.4) K/uL [place] # (Auto) (0.11-0.59) K/uL PT 26.8 H (9.0-12.0) Seconds INR 2.8 H (0.9-1.1) BUN 57 H (7-18) mg/dl Creatinine 2.07 H (0.6-1.2) mg/dl BUN/Creatinine Ratio 27.4 H (10-20) CK/CKMB % Calc (0-3.0) Troponin I 0.085 H* (0-0.045) ng/ml NT-Pro-B Natriuret Pep (0-1800) pg/ml Total Protein 6.1 L (6.4-8.2) gm/dl Albumin 2.9 L (3.4-5.0) gm/dl Diagnostic Findings cxr IMPRESSION: Chronic and postoperative change (after BL shoulder arthroplasties). No acute process. CT R femur 1. No acute process of the right femur. 2. Diffuse soft tissue edema versus cellulitis throughout the right thigh extending from the level of the right hip to the right knee. 3. Calcific trochanteric bursitis right hip. TTE severe clvh w/o WMA; normal R LV function but R LV cavity enlarged; no plm htn
--- NOTE | 2018-08-23 14:02 | Cardiology Consultation ---
Date of Consultation August 23, 2018 Assessment & Plan (1) Acute right-sided heart failure: markedly volume overloaded with tremendous response to initiation of IV diuresis will cont with bid lasix will follow renal function closely, our nephrology colleagues have also been consulted, appreciate input follow and replete lytes as necessary may benefit from additon of spironolactone prior to discharge already on max dose beta adam to treat diastolic dysfunction. (2) Acute hip pain: Medtronic Debra XT MRI pacemaker is MRI compatible would not avoid MRI due to pacemaker (3) CAD (coronary artery disease): complex history currently stable cont asa, atorvastatin and metoprolol History of Present Illness Attending Physician: Valentin Gamboa MD History of Present Illness Pt presented to [facility] ER with complaints of LE edema starting on 08/22/18. Pt with recent fall and resultant hip pain. Admitted for inpatient rehab SNF, family then noted her legs to be significantly edematous approximately 2 days prior to presentation. Oral lasix increased but edema worsened and brought to ER. Upon furhter questioning, patient states that she's been sob for several months to years now, off and on. No real change as of late. Denies cp, palpitations, lightheadedness or dizziness. Compliant with meds and diet. History: 1. ASCVD status post PCI of the LCX in May 2005 with a drug eluting stent. 2. No prior history of myocardial infarction. 3. 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 In October 2008 patient developed severe dyspnea, abnormal nuclear stress testing in [place] (fixed anterior defect and an EF of 33%), and ultimately catheterization on December 16, 2008 which demonstrated luminal irregularities with a patent LCX stent. No obstructive disease was observed. She was then referred to Dr. Monterroso to consider biventricular pacemaker/ICD implantation however the left subclavian vein was occluded and the procedure was aborted. 5. 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 6. Presentation in November 2009 with marked dyspnea after increasing Coreg and starting amiodarone for symptomatic paroxysmal atrial fibrillation. 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 She was noted to have nearly normal coronary arteries with only luminal irregularities, nothing over 10%. Left and right heart pressures were relatively normal with the right atrial pressure being slightly elevated and mild pulmonary hypertension which was felt to be clinically insignificant. Her dyspnea was felt to be secondary to amiodarone and possibly high dose Coreg. 7. Admission to [facility] in July 2013, initiation of Tikosyn. Tikosyn discontinued in April 2015 due to recurrent atrial fibrillation and renal dysfunction. 8. Patient previously referred to EP for upgrade to a BiV device given symptoms, decline in LV function, and 100% RV pacing with device upgrade risks felt to be greater than benefit. 9. Past paroxysmal and now chronic atrial fibrillation. 10. Hypertension. 11. Hyperlipidemia. 12. Left subclavian vein stenosis, see above. 13. Anemia felt to be secondary to chronic disease from renal insufficiency versus primary hypoproliferative bone marrow disorder. 14. Gout. 15. PMR. 16. Ovarian cyst status post removal. 17. Hysterectomy. 18. Lumbar spinal intervention. 19. Breast reduction. 20. Lithotripsy. 21. Bilateral rotator cuff surgeries. 22. Bilateral knee replacements. 23. Bilateral carpal tunnel surgery. 24. Question appendectomy at the time of hysterectomy. 25. Status post left shoulder replacement in January 2011. 26. Redo right shoulder surgery by Dr. Cuevas at [facility] in December 2013. 27. Status post bilateral upper blepharoplasty at [facility] on without complication. Family History: Mother at 91 following CVA. She had HTN and a pacer placed in her 70's. Father had lung trouble and at 78. Patient has/had 5 brothers and two sisters. One brother with unknown type of cancer. One sister had stomach cancer. Social History: Nonsmoker. No alcohol consumption. No illegal drug use. . Granddaughter previously worked for [employer] as an RN Allergies Allergy/AdvReac Type Severity Reaction Status Date / Time lisinopril Allergy Mild OTHER Verified 08/22/18 14:06 adhesive Allergy Unknown . Verified 08/22/18 14:06 amiodarone Allergy Unknown . Verified 08/22/18 14:06 Home Medications Home Medications Medication Instructions Recorded Confirmed Type aspirin [Aspir-81] 81 mg PO 3XWK 07/29/18 08/22/18 History atorvastatin 80 mg PO QAM 07/29/18 08/22/18 History donepezil 5 mg PO QAM 07/29/18 08/22/18 History furosemide 20 mg PO BID 07/29/18 08/22/18 History hydralazine 25 mg PO BID 07/29/18 08/22/18 History metoprolol tartrate 50 mg PO QAM 07/29/18 08/22/18 History polyethylene glycol 3350 [Miralax] 17 g PO DAILY PRN 07/29/18 08/22/18 History warfarin 2 mg PO DAILY 07/29/18 08/22/18 History calcium carbonate-vitamin D3 1 tab PO QAM 08/13/18 08/22/18 History [Caltrate 600 + D] docusate sodium [Colace] 100 mg PO BID #60 cap 08/13/18 08/22/18 Rx ferrous sulfate 325 mg PO QAM 08/13/18 08/22/18 History oxycodone 5 mg PO Q6H #14 tab 08/13/18 08/22/18 Rx sennosides [Senokot] 8.6 mg PO HS #30 tab 08/13/18 08/22/18 Rx Patient History Medical History Acute hip pain (Acute) A-fib CHF (congestive heart failure) (Chronic) GERD (gastroesophageal reflux disease) (Chronic) Hypertension (Chronic) CKD (chronic kidney disease) stage 3, GFR 30-59 ml/min (Chronic) Rotator cuff injury (Acute 12/23/13) Surgical History Status post coronary artery stent placement (Chronic) Status post cardiac pacemaker procedure (Chronic) Status post cardiac catheterization (Chronic) Status post hysterectomy (Chronic) Status post total knee replacement (Chronic) Family History Other Cancer Social History marital status: / Current Living Situation: [facility] current occupational status: retired Other Information That Helps Us Care for You: No Feels Safe at Home: Yes Safety Concerns: Feels Safe At This Time Smoking Status: Never smoker Do You Dip or Chew Tobacco: No Second Hand Exposure: No Tobacco Cessation Education Requested by Patient: No Hx Alcohol Use: No Hx Substance Use: No Beliefs That Will Affect Care: None Communication Ability: Effective Physical Exam 2 Vital Signs (Past 24 Hours): Last Vital Signs Temp 36.7 C 08/23/18 11:43 Pulse 78 08/23/18 11:43 Resp 16 08/23/18 11:43 BP 126/85 08/23/18 11:43 Pulse Ox 98 08/23/18 11:43 Physical Exam: General: Awake, alert and oriented x 3. No acute distress. HEENT: Normocephalic, atraumatic. Pupils equal, round and reactive to light and accommodation. Extraocular muscles are intact. Anicteric sclera. Moist mucous membranes. Neck: No JVD. No bruit. Cardiovascular: Regular. Positive S-4. Normal S-1 and S-2. No S-3. 3/6 holosystolic ejection murmur, 5th intercostal space, mid-clavicular line without radiation. No rubs. Pulmonary: Clear to auscultation bilaterally. No rales, rhonchi, or wheezing. Abdomen: Bowel sounds x 4, soft. No rebound, guarding or tenderness. No organomegaly. Extremities: No clubbing, cyanosis. +2 B/L LE pitting edema. +2 pedal pulses bilaterally. Skin: Warm and dry. _ (1) Acute hip pain Laterality: right Qualified Code(s): M25.551 - Pain in right hip
--- NOTE | 2018-08-23 15:28 | Hospitalist Progress Note ---
Date of Service August 23, 2018 Assessment & Plan (1) CHF (congestive heart failure): likely right sided CHF on Lasix 40mg IV BID monitor selene rodriguez Cardio, Nephro on board (2) CKD (chronic kidney disease) stage 3, GFR 30-59 ml/min: monitor crea while on Lasix monitor (3) Acute hip pain: IMPRESSION: 1. No acute process of the right femur. 2. Diffuse soft tissue edema versus cellulitis throughout the right thigh extending from the level of the right hip to the right knee. 3. Calcific trochanteric bursitis right hip. 4. No evidence for a drainable abscess or collection. -- no signs of leg cellulitis hip pain intermittent, mild moderate will need PT/OT (4) A-fib: monitor INR resume coumadin accordingly on Metoprolol (5) GERD (gastroesophageal reflux disease): Currently not on a PPI we will monitor (6) Hypertension: Lasix, metoprolol, will monitor DVT prophylaxis INR therapeutic Disposition pending Subjective ff up for CHF delayed entry date of service as noted above seen resting in bedside chair comfortable states she feels improved compared to day prior denies shortness of breath, chest pain no leg pain has intermittent mild mod right hip pain denies other symptoms Physical Exam 2 Vital Signs (Past 24 Hours): Last Vital Signs Temp 36.7 C 08/23/18 11:43 Pulse 78 08/23/18 11:43 Resp 16 08/23/18 11:43 BP 126/85 08/23/18 11:43 Pulse Ox 98 08/23/18 11:43 Physical Exam: General- oriented x 3, not in distress, speaks in sentences with no effort or accessory muscle use Eyes- anicteric Neck- no JVD Lungs- clear breath sounds bilaterally, no rales/wheezes Heart- normal rate, regular rhythm; no murmurs Abdomen- normal bowel sounds, nondistended, soft, nontender Extremities- grade 2 lower leg edema, no calf tenderness Neuro- alert, oriented x 3; no gross focal neurologic deficits Skin- warm & dry Results & Data Laboratory Results Laboratory Results - last 24 hr 08/24/18 08/24/18 08/24/18 07:41 07:41 07:41 WBC 5.10 RBC 3.45 L Hgb 9.6 L Hct 30.9 L MCV 89.6 MCH 27.8 MCHC 31.1 L RDW Std Deviation 56.2 H RDW Coeff of Mykel 17.2 H Plt Count 157 MPV 10.3 PT 19.3 H INR 2.0 H Sodium 137 Potassium 4.0 Chloride 103 Carbon Dioxide 26 Anion Gap 8.0 BUN 59 H Creatinine 2.26 H Est Cr Clr Drug Dosing 18.8 Est GFR ( Amer) 22.2 Est GFR (Non-Af Amer) 19.2 BUN/Creatinine Ratio 26.0 H Glucose 90 Calcium 8.9 _ (1) Acute hip pain Laterality: right Qualified Code(s): M25.551 - Pain in right hip (2) CHF (congestive heart failure) Heart failure chronicity: acute on chronic Heart failure type: unspecified Qualified Code(s): I50.9 - Heart failure, unspecified
[2018-08-23] MEDS: FUROSEMIDE 40 MG in SYRINGE 0 ML IV SCH (16:55)
[2018-08-23] MEDS: SENNA 8.6 MG TAB PO SCH (21:11)
[2018-08-23] MEDS: MICONAZOLE NITRATE POWDER 43 GM EXT PRN (21:12)
[2018-08-23] MEDS: ACETAMINOPHEN 325 MG TAB PO PRN (21:21)
--- NOTE | 2018-08-24 07:36 | Nephrology Progress Note ---
Date of Service August 24, 2018 Assessment & Plan (1) CKD (chronic kidney disease) stage 4, GFR 15-29 ml/min: baseline creatinine 2.0-2.2 > a bit above baseline today w/ creatinine 2.3 at clinic last month w/ me in hindsight her weight was already at higher end of her range at 74.8 kg; she was 85.5 kg here on presentation and down to 81.7 kg day after admission and 81.5 today -for now cont lowered lasix 40 mg IV bid to preserve renal function -avoid nsaids in pain control -f/u labs from this am -anemia of CKD >> declines ravinder; check hgb q 48 hrs (2) Peripheral edema: did not lose much weight past 24 hrs/ I-O reassuring if correct -cont lowered lasix to 40 mg iv bid -cont daily bmp -cont standing daily wts -cont FR 1.5L but did order <2 gm daily Na diet -f/u cardiology recs--look to add spironolactone when appropriate; defer for today though (3) Hypertension: controlled; cont current meds -cont low Na diet Subjective seen on rounds this am at 0740; breathing ok; ate some not full brkfst; thinks edema a bit better; no palpitations; no n/v/d/abd pain; no retana c/o; no rash; no focal numbness/weakness Physical Exam 2 Vital Signs (Past 24 Hours): Last Vital Signs Temp 36.5 C 08/24/18 04:00 Pulse 96 H 08/24/18 04:00 Resp 18 08/24/18 04:00 BP 109/66 08/24/18 04:00 Pulse Ox 97 08/24/18 04:00 Constitutional: well developed, well nourished and cooperative sitting in bed on RA Eyes: EOM intact bilaterally ENMT: Ears: no external ear abnormality Nose: no external nose abnormality Mouth: + dry oral mucous membranes Neck: no nuchal rigidity Respiratory: normal respiratory effort Auscultation: + diminished lung sounds (olinda R base) and + rhonchi Cardiovascular: Rate/Rhythm: regular rate and regular rhythm Extremities: + edema (1-2+ BL ankles) Gastrointestinal (Abdomen): Inspection/Auscultation: normal bowel sounds Percussion/Palpation: abdomen soft; abdomen nontender Musculoskeletal: Extremities: strength 5/5 throughout Skin: no rashes, warm and dry Neurologic: awake Speech / Cognition: normal cognition Motor/Sensory: normal movement some recall issues Psychiatric: A+Ox3, euthymic affect Genitourinary: retana present w/ ample urine Results & Data Laboratory Results Abnormal lab results 08/24/18 08/24/18 08/24/18 Range/Units 07:41 07:41 07:41 RBC 3.45 L (4.2-5.4) M/uL Hgb 9.6 L (12.0-16.0) g/dL Hct 30.9 L (37-47) % MCHC 31.1 L (32-36) g/dL RDW Std Deviation 56.2 H (36.4-46.3) fL RDW Coeff of Mykel 17.2 H (11.5-14.5) % PT 19.3 H (9.0-12.0) Seconds INR 2.0 H (0.9-1.1) BUN 59 H (7-18) mg/dl Creatinine 2.26 H (0.6-1.2) mg/dl BUN/Creatinine Ratio 26.0 H (10-20)
[2018-08-24 07:55] LABS: Hematocrit (blood only) 30.9 % (37-47); Hemoglobin 9.6 g/dL (12.0-16.0); Mean Corpuscular Volume 89.6 fL (80-100); Mean Platelet Volume 10.3 fL (7.4-10.4); Platelet Count 157 K/uL (130-400); RDW Coefficient of Variation 17.2 % (11.5-14.5); RDW Standard Deviation 56.2 fL (36.4-46.3); Red Blood Count 3.45 M/uL (4.2-5.4)
[2018-08-24 07:57] LABS: Mean Corpuscular Hgb Conc 31.1 g/dL (32-36)
[2018-08-24 08:03] LABS: Prothrombin Time 19.3 Seconds (9.0-12.0)
[2018-08-24 08:11] LABS: Calcium 8.9 mg/dl (8.5-10.1); Creatinine Clr Calc Pharmacy 18.8 ml/min; Est GFR (African American) 22.2; Est GFR (Non-African American) 19.2
[2018-08-24] MEDS: ATORVASTATIN 40 MG TAB PO SCH (08:28)
[2018-08-24] MEDS: DONEPEZIL HCL 5 MG TAB PO SCH (08:28)
[2018-08-24] MEDS: DOCUSATE SODIUM 100 MG CAP PO SCH ×2 (08:28→19:52)
[2018-08-24] MEDS: METOPROLOL TARTRATE 50 MG TAB PO SCH (08:28)
[2018-08-24] MEDS: CALCIUM 600MG + VIT D 400 IU TAB PO SCH (08:29)
[2018-08-24] MEDS: MICONAZOLE NITRATE POWDER 43 GM EXT PRN (08:29)
[2018-08-24] MEDS: ASPIRIN 81 MG ECTAB PO SCH (08:29)
[2018-08-24] MEDS: FERROUS SULFATE 325 MG TAB PO SCH (08:29)
[2018-08-24] MEDS: FUROSEMIDE 40 MG in SYRINGE 0 ML IV SCH ×2 (08:40→17:20)
--- NOTE | 2018-08-24 10:36 | Cardiology Progress Note ---
Date of Service August 24, 2018 Assessment & Plan (1) Acute right-sided heart failure: markedly volume overloaded with initial response to IV diuresis will cont with bid lasix nephrology following closely follow and replete lytes as necessary may benefit from additon of spironolactone prior to discharge, hold off for now , will discuss with our nephrology colleagues already on max dose beta adam to treat diastolic dysfunction. (2) Acute hip pain: Medtronic Debra XT MRI pacemaker is MRI compatible CT showing bursitis (3) CAD (coronary artery disease): complex history currently stable cont asa, atorvastatin and metoprolol Subjective Pt seen and examined, oob in chair. states that she's feeling a little better, just tired, not sleeping well. Denies cp, palpitations, lightheadedness or dizziness. Unsure if breathing has improved. Tele reviewed: paced rhythm Review of Systems All systems reviewed & are unremarkable except as noted in HPI & below Physical Exam 2 Vital Signs (Past 24 Hours): Last Vital Signs Temp 36.7 C 08/24/18 07:00 Pulse 68 08/24/18 07:00 Resp 18 08/24/18 07:00 BP 122/68 08/24/18 07:00 Pulse Ox 96 08/24/18 07:00 Physical Exam: General: Awake, alert and oriented x 3. No acute distress. HEENT: Normocephalic, atraumatic. Pupils equal, round and reactive to light and accommodation. Extraocular muscles are intact. Anicteric sclera. Moist mucous membranes. Neck: No JVD. No bruit. Cardiovascular: Regular. Positive S-4. Normal S-1 and S-2. No S-3. 3/6 holosystolic ejection murmur, 5th intercostal space, mid-clavicular line without radiation. No rubs. Pulmonary: Clear to auscultation bilaterally. No rales, rhonchi, or wheezing. Abdomen: Bowel sounds x 4, soft. No rebound, guarding or tenderness. No organomegaly. Extremities: No clubbing, cyanosis or edema. +2 pedal pulses bilaterally. Skin: Warm and dry. _ (1) Acute hip pain Laterality: right Qualified Code(s): M25.551 - Pain in right hip
--- NOTE | 2018-08-24 18:46 | Hospitalist Progress Note ---
Date of Service August 24, 2018 Assessment & Plan (1) CHF (congestive heart failure): likely right sided CHF on Lasix 40mg IV BID diuresing well crea slightly elevated monitor selene rodriguez Cardio, Nephro on board (2) CKD (chronic kidney disease) stage 3, GFR 30-59 ml/min: monitor crea while on Lasix monitor (3) Acute hip pain: IMPRESSION: 1. No acute process of the right femur. 2. Diffuse soft tissue edema versus cellulitis throughout the right thigh extending from the level of the right hip to the right knee. 3. Calcific trochanteric bursitis right hip. 4. No evidence for a drainable abscess or collection. -- no signs of leg cellulitis hip pain intermittent, mild moderate will need PT/OT (4) A-fib: inr 2.0 resume coumadin 2mg on Metoprolol (5) GERD (gastroesophageal reflux disease): Currently not on a PPI we will monitor (6) Hypertension: Lasix, metoprolol, will monitor DVT prophylaxis INR therapeutic Disposition pending Subjective ff up for CHF resting in chair comfortable feels fine no dyspnea, chest pain, palpitations has intermittent mild mod right hip pain- improving as per patient denies other symptoms Physical Exam 2 Vital Signs (Past 24 Hours): Last Vital Signs Temp 36.3 C L 08/24/18 15:58 Pulse 63 08/24/18 15:58 Resp 18 08/24/18 15:58 BP 109/64 08/24/18 15:58 Pulse Ox 97 08/24/18 15:58 Physical Exam: General- oriented x 3, not in distress, speaks in sentences with no effort or accessory muscle use Eyes- anicteric Neck- no JVD Lungs- clear BS BL, no wheezing/rales Heart- normal rate, regular rhythm; no murmurs Abdomen- normal bowel sounds, nondistended, soft, nontender Extremities- grade 1 lower leg edema, no calf tenderness Neuro- alert, oriented x 3; no gross focal neurologic deficits Skin- warm & dry Results & Data Laboratory Results Laboratory Results - last 24 hr 08/24/18 08/24/18 08/24/18 07:41 07:41 07:41 WBC 5.10 RBC 3.45 L Hgb 9.6 L Hct 30.9 L MCV 89.6 MCH 27.8 MCHC 31.1 L RDW Std Deviation 56.2 H RDW Coeff of Mykel 17.2 H Plt Count 157 MPV 10.3 PT 19.3 H INR 2.0 H Sodium 137 Potassium 4.0 Chloride 103 Carbon Dioxide 26 Anion Gap 8.0 BUN 59 H Creatinine 2.26 H Est Cr Clr Drug Dosing 18.8 Est GFR ( Amer) 22.2 Est GFR (Non-Af Amer) 19.2 BUN/Creatinine Ratio 26.0 H Glucose 90 Calcium 8.9 _ (1) CHF (congestive heart failure) Heart failure chronicity: acute on chronic Heart failure type: unspecified Qualified Code(s): I50.9 - Heart failure, unspecified (2) Acute hip pain Laterality: right Qualified Code(s): M25.551 - Pain in right hip
[2018-08-24] MEDS ORDERED: WARFARIN SOD 2 MG TAB PO SCH (19:15)
[2018-08-24] MEDS: SENNA 8.6 MG TAB PO SCH (19:52)
[2018-08-25 07:40] LABS: Basophils # (auto) 0.01 K/uL (0-0.2); Basophils % (auto) 0.1 %; Eosinophils # (auto) 0.13 K/uL (0-0.5); Eosinophils % (auto) 1.8 %; Hemoglobin 9.4 g/dL (12.0-16.0); Immature Granulocytes # (auto) 0.01 K/uL (0.00-0.02); Immature Granulocytes % (auto) 0.1 %; Lymphocytes # (auto) 1.17 K/uL (1.2-3.4); Lymphocytes % (auto) 16.6 %; Mean Corpuscular Hgb Conc 31.3 g/dL (32-36); Mean Corpuscular Volume 89.3 fL (80-100); Monocytes % (auto) 11.4 %; Neutrophils # (auto) 4.91 K/uL (1.4-6.5); Platelet Count 150 K/uL (130-400); RDW Standard Deviation 56.3 fL (36.4-46.3); Red Blood Count 3.36 M/uL (4.2-5.4); White Blood Count 7.03 K/uL (4.8-10.8)
--- NOTE | 2018-08-25 07:43 | Nephrology Progress Note ---
Date of Service August 25, 2018 Assessment & Plan (1) CKD (chronic kidney disease) stage 4, GFR 15-29 ml/min: baseline creatinine 2.0-2.2 > a bit above baseline today w/ creatinine 2.3 at clinic last month w/ me in hindsight her weight was already at higher end of her range at 74.8 kg; she was 85.5 kg here on presentation and down to 81.7 kg day after admission and 81.5 today -lasix as below -anemia of CKD >> declines ravinder; check hgb q 48 hrs (2) Peripheral edema: actually gained weight past 24 hrs though I-O reassuring if correct -INCREASED lasix to 60 mg iv tid and f/u labs from today -started standing K 60 mEq tid po -cont daily bmp -cont standing daily wts -cont FR 1.5L but did order <2 gm daily Na diet -f/u cardiology recs--look to add spironolactone when appropriate; defer for today at least until labs post though (3) Hypertension: remains controlled; cont current meds -cont low Na diet Subjective slept ok; not much wt loss; legs feel heavy still and not much better. no sob; no chest pain/ palpitations. no n/v; tolerating retana no f/c or poor appetite; no rash; no focal numbness/weakness; no mm/joint pain; no depression or flight of ideas Physical Exam 2 Vital Signs (Past 24 Hours): Last Vital Signs Temp 36.7 C 08/25/18 07:01 Pulse 64 08/25/18 07:01 Resp 16 08/25/18 07:01 BP 116/67 08/25/18 07:01 Pulse Ox 96 08/25/18 07:01 Constitutional: well developed, well nourished and cooperative up in chair dosing but wakens fully on RA Eyes: EOM intact bilaterally ENMT: Ears: no external ear abnormality Nose: no external nose abnormality Mouth: + dry oral mucous membranes Neck: no nuchal rigidity Respiratory: normal respiratory effort Auscultation: + diminished lung sounds (bl bases); no rhonchi thick cough w/ exam maneuvers Cardiovascular: Rate/Rhythm: regular rate and regular rhythm Extremities: + edema (1+ BL ankles) Gastrointestinal (Abdomen): Inspection/Auscultation: normal bowel sounds Percussion/Palpation: abdomen soft; abdomen nontender Musculoskeletal: Extremities: strength 5/5 throughout Skin: no rashes, warm and dry Neurologic: awake Speech / Cognition: normal cognition Motor/Sensory: normal movement Psychiatric: A+Ox3, euthymic affect Genitourinary: retana w/ ample urine Results & Data Laboratory Results Abnormal lab results 08/25/18 08/25/18 08/25/18 Range/Units 07:24 07:24 07:24 RBC 3.36 L (4.2-5.4) M/uL Hgb 9.4 L (12.0-16.0) g/dL Hct 30.0 L (37-47) % MCHC 31.3 L (32-36) g/dL RDW Std Deviation 56.3 H (36.4-46.3) fL RDW Coeff of Mykel 17.0 H (11.5-14.5) % Lymph # (Auto) 1.17 L (1.2-3.4) K/uL [place] # (Auto) 0.80 H (0.11-0.59) K/uL PT 16.5 H (9.0-12.0) Seconds INR 1.7 H (0.9-1.1) BUN 58 H (7-18) mg/dl Creatinine 2.17 H (0.6-1.2) mg/dl BUN/Creatinine Ratio 26.8 H (10-20)
[2018-08-25 07:46] LABS: INR 1.7 (0.9-1.1); Prothrombin Time 16.5 Seconds (9.0-12.0)
[2018-08-25] MEDS: METOPROLOL TARTRATE 50 MG TAB PO SCH (08:04)
[2018-08-25] MEDS: FUROSEMIDE 40 MG in SYRINGE 0 ML IV SCH (08:04)
[2018-08-25] MEDS: SENNA 8.6 MG TAB PO SCH (08:05)
[2018-08-25] MEDS: DOCUSATE SODIUM 100 MG CAP PO SCH ×3 (08:05→20:03)
[2018-08-25] MEDS: ATORVASTATIN 40 MG TAB PO SCH (08:05)
[2018-08-25] MEDS: DONEPEZIL HCL 5 MG TAB PO SCH (08:05)
[2018-08-25] MEDS: CALCIUM 600MG + VIT D 400 IU TAB PO SCH (08:05)
[2018-08-25] MEDS: FERROUS SULFATE 325 MG TAB PO SCH (08:05)
[2018-08-25] MEDS: MICONAZOLE NITRATE POWDER 43 GM EXT PRN (08:06)
[2018-08-25 08:13] LABS: BUN Creatinine Ratio 26.8 (10-20); Calcium 8.7 mg/dl (8.5-10.1); Creatinine Clr Calc Pharmacy 19.7 ml/min; Est GFR (African American) 23.3; Est GFR (Non-African American) 20.1; Potassium 3.6 mmol/L (3.5-5.1)
[2018-08-25] MEDS: POTASSIUM CHLORIDE 20 MEQ TABCR PO SCH ×3 (11:24→19:59)
[2018-08-25] MEDS: FUROSEMIDE 60 MG in SYRINGE 0 ML IV SCH ×2 (13:57→19:59)
[2018-08-25] MEDS: HydrALAZINE 10 MG TAB PO SCH ×2 (13:57→19:59)
[2018-08-25] MEDS ORDERED: WARFARIN SOD 3 MG TAB PO SCH (16:00)
[2018-08-25] MEDS: WARFARIN SOD 3 MG TAB PO SCH (16:51)
--- NOTE | 2018-08-25 17:30 | Hospitalist Progress Note ---
Date of Service August 25, 2018 Assessment & Plan (1) CHF (congestive heart failure): likely Right Sided Heart Failure as per cardio Diastolic Dysfunction, Severe Tircuspid Regurg on Lasix 40mg IV BID--> i&o -460 since yesterday--> increased to Lasix 40mg IV Tid with K crea slightly elevated from baseline of 2.0 monitor selene rodriguez Cardio, Nephro on board- appreciate the recommendations (2) CKD (chronic kidney disease) stage 3, GFR 30-59 ml/min: monitor crea while on Lasix monitor (3) Acute hip pain: IMPRESSION: 1. No acute process of the right femur. 2. Diffuse soft tissue edema versus cellulitis throughout the right thigh extending from the level of the right hip to the right knee. 3. Calcific trochanteric bursitis right hip. 4. No evidence for a drainable abscess or collection. -- no signs of leg cellulitis hip pain intermittent, mild moderate monitor PT/OT (4) A-fib: inr 1.7 coumadin increased to 3mg po daily monitor INR on Metoprolol (5) GERD (gastroesophageal reflux disease): Currently not on a PPI we will monitor (6) Hypertension: stable overall continue Metoprolol DVT prophylaxis INR 1.7 on coumadin Disposition pending, was in SNF before admission PT OT ordered, anticipate need to return to SNF upon discharge Subjective ff up for CHF resting in chair comfortable states she feels about the same no active dyspnea, chest pain, palpitations has intermittent mild right hip pain denies other symptoms Physical Exam 2 Vital Signs (Past 24 Hours): Last Vital Signs Temp 37.1 C 08/25/18 14:56 Pulse 61 08/25/18 14:56 Resp 21 08/25/18 14:56 BP 108/60 08/25/18 14:56 Pulse Ox 96 08/25/18 16:03 Physical Exam: General- oriented x 3, not in distress, speaks in sentences with no effort or accessory muscle use Eyes- anicteric Neck- no JVD Lungs- clear BS BL no rales, wheezes Heart- normal rate, regular rhythm; no murmurs Abdomen- normal bowel sounds, nondistended, soft, nontender Extremities- grade 2 lower leg edema, no calf tenderness Neuro- alert, oriented x 3; no gross focal neurologic deficits Skin- warm & dry Results & Data Laboratory Results Laboratory Results - last 24 hr 08/25/18 08/25/18 08/25/18 07:24 07:24 07:24 WBC 7.03 RBC 3.36 L Hgb 9.4 L Hct 30.0 L MCV 89.3 MCH 28.0 MCHC 31.3 L RDW Std Deviation 56.3 H RDW Coeff of Mykel 17.0 H Plt Count 150 MPV 10.0 Immature Gran % (Auto) 0.1 Neut % (Auto) 70.0 Lymph % (Auto) 16.6 [place] % (Auto) 11.4 Eos % (Auto) 1.8 Baso % (Auto) 0.1 Immature Gran # (Auto) 0.01 Neut # (Auto) 4.91 Lymph # (Auto) 1.17 L [place] # (Auto) 0.80 H Eos # (Auto) 0.13 Baso # (Auto) 0.01 PT 16.5 H INR 1.7 H Sodium 136 Potassium 3.6 Chloride 102 Carbon Dioxide 27 Anion Gap 8.0 BUN 58 H Creatinine 2.17 H Est Cr Clr Drug Dosing 19.7 Est GFR ( Amer) 23.3 Est GFR (Non-Af Amer) 20.1 BUN/Creatinine Ratio 26.8 H Glucose 85 Calcium 8.7 _ (1) CHF (congestive heart failure) Heart failure chronicity: acute on chronic Heart failure type: unspecified Qualified Code(s): I50.9 - Heart failure, unspecified (2) Acute hip pain Laterality: right Qualified Code(s): M25.551 - Pain in right hip
[2018-08-26] MEDS: ACETAMINOPHEN 325 MG TAB PO PRN ×2 (02:31→23:19)
[2018-08-26] MEDS: ASPIRIN 81 MG ECTAB PO SCH (08:13)
[2018-08-26] MEDS: HydrALAZINE 10 MG TAB PO SCH ×3 (08:13→20:59)
[2018-08-26] MEDS: FERROUS SULFATE 325 MG TAB PO SCH (08:13)
[2018-08-26] MEDS: DOCUSATE SODIUM 100 MG CAP PO SCH ×2 (08:13→20:54)
[2018-08-26] MEDS: ATORVASTATIN 40 MG TAB PO SCH (08:14)
[2018-08-26] MEDS: POTASSIUM CHLORIDE 20 MEQ TABCR PO SCH ×3 (08:14→20:59)
[2018-08-26] MEDS: DONEPEZIL HCL 5 MG TAB PO SCH (08:14)
[2018-08-26] MEDS: CALCIUM 600MG + VIT D 400 IU TAB PO SCH (08:14)
[2018-08-26] MEDS: METOPROLOL TARTRATE 50 MG TAB PO SCH (08:15)
--- NOTE | 2018-08-26 08:15 | Nephrology Progress Note ---
Date of Service August 26, 2018 Assessment & Plan (1) CKD (chronic kidney disease) stage 4, GFR 15-29 ml/min: baseline creatinine 2.0-2.2 > a bit above baseline yesterday w/ creatinine 2.3, same value today. no sujit so far thankfully at clinic last month w/ me in hindsight her weight was already at higher end of her range at 74.8 kg; she was 85.5 kg here on presentation and down to 80.5 today < 815.< 81.7 kg day after admission -lasix as below -anemia of CKD >> declines ravinder; check hgb q 48 hrs (2) Peripheral edema: worse today though wt down -cont INCREASED lasix to 60 mg iv tid -cont just started standing K 60 mEq tid po -cont daily bmp -cont standing daily wts -cont FR 1.5L but did order <2 gm daily Na diet -f/u cardiology recs--look to add spironolactone when appropriate; defer for today to focus on diuresis -d/w Dr Alford optimizing other pulm meds (3) Hypertension: remains controlled; cont current meds -cont low Na diet Subjective seen on rounds. had a restless night; not obviously short of breath but general malaise. ate poor brkfst; + orthonea and exertional dyspnea. thinks edema more. wt 80.8 today (down) no palpitations. no n/v/d/abd pain. no retana c/o. no rash. no focal numbness /wkness but + generalized. no acute vision change or stiff neck Physical Exam 2 Vital Signs (Past 24 Hours): Last Vital Signs Temp 36.7 C 08/26/18 04:20 Pulse 65 08/26/18 04:20 Resp 16 08/26/18 04:20 BP 104/60 08/26/18 04:20 Pulse Ox 97 08/26/18 04:20 Constitutional: well developed, well nourished and cooperative on RA, looks uncomfortable and sob w/ exam maneuvers Eyes: EOM intact bilaterally ENMT: Ears: no external ear abnormality Nose: no external nose abnormality Mouth: + dry oral mucous membranes Neck: no nuchal rigidity Respiratory: + labored breathing (w/ exam manuevers) Auscultation: + diminished lung sounds (bl bases), + rhonchi and + wheezes slightly prolonged exp phase Cardiovascular: Rate/Rhythm: regular rate and regular rhythm Extremities: + edema (1-2+ BLE) Gastrointestinal (Abdomen): Inspection/Auscultation: normal bowel sounds Percussion/Palpation: abdomen soft; abdomen nontender Musculoskeletal: Extremities: strength 5/5 throughout (but 1 persno assist to reposition in bed) Skin: no rashes, warm and dry Neurologic: awake Speech / Cognition: normal cognition Motor/Sensory: normal movement Psychiatric: A+Ox3, euthymic affect Genitourinary: retana w/ dark yellow urine Results & Data Laboratory Results Abnormal lab results 08/26/18 Range/Units 08:35 Sodium 134 L (136-145) mmol/L BUN 60 H (7-18) mg/dl Creatinine 2.33 H (0.6-1.2) mg/dl BUN/Creatinine Ratio 25.9 H (10-20) Glucose 126 H (70-99) mg/dl
[2018-08-26 09:07] LABS: BUN Creatinine Ratio 25.9 (10-20); Creatinine Clr Calc Pharmacy 18.4 ml/min; Est GFR (African American) 21.4; Est GFR (Non-African American) 18.5; Potassium 3.9 mmol/L (3.5-5.1)
[2018-08-26] MEDS: FUROSEMIDE 60 MG in SYRINGE 0 ML IV SCH ×3 (09:10→20:58)
--- NOTE | 2018-08-26 10:41 | Cardiology Progress Note ---
Date of Service August 26, 2018 Assessment & Plan (1) Acute right-sided heart failure: markedly volume overloaded with initial response to IV diuresis would have hoped for greater diuresis at this point luckily no significant decline in renal function appreciate our nephrology colleague's input (2) Acute hip pain: Medtronic Debra XT MRI pacemaker is MRI compatible improving (3) CAD (coronary artery disease): complex history currently stable cont asa, atorvastatin and metoprolol Subjective Pt seen and examined, oob in chair working with PT. Did not have a good night, unrested, sob with minimal exertion this AM. Denies cp, palpitations, lightheadedness or dizziness. tele reviewed: v-paced Review of Systems All systems reviewed & are unremarkable except as noted in HPI & below Physical Exam 2 Vital Signs (Past 24 Hours): Last Vital Signs Temp 37.0 C 08/26/18 08:00 Pulse 66 08/26/18 08:00 Resp 18 08/26/18 08:00 BP 110/63 08/26/18 08:00 Pulse Ox 96 08/26/18 08:00 Physical Exam: General: Awake, alert and oriented x 3. No acute distress. HEENT: Normocephalic, atraumatic. Pupils equal, round and reactive to light and accommodation. Extraocular muscles are intact. Anicteric sclera. Moist mucous membranes. Neck: No JVD. No bruit. Cardiovascular: Regular. Positive S-4. Normal S-1 and S-2. No S-3. 3/6 mid to late systolic ejection murmur, greatest at the right sternal border, second intercostal space with radiation to the bilateral carotids. No rubs. Pulmonary: Clear to auscultation bilaterally. No rales, rhonchi, or wheezing. Abdomen: Bowel sounds x 4, soft. No rebound, guarding or tenderness. No organomegaly. Extremities: No clubbing, cyanosis or edema. +2 pedal pulses bilaterally. Skin: Warm and dry. _ (1) Acute hip pain Laterality: right Qualified Code(s): M25.551 - Pain in right hip
--- NOTE | 2018-08-26 11:36 | XRay Report ---
XR chest 2V routine CLINICAL HISTORY: Abnormal physical examination with bilateral rhonchi. COMPARISON STUDY: 08/22/2018 FINDINGS: The study is significantly rotated. The heart is enlarged. There is a left subclavian bipol ar central venous pacemaker. There is radiographic evidence of mild congestive failure/fluid overload . There are small bilateral pleural effusions. Note is made of bilateral shoulder arthroplasties. The re is no evidence of lobar consolidation. IMPRESSION: 1. Cardiomegaly and radiographic evidence of mild congestive failure/fluid overload 2. Small bilateral pleural effusions right greater than left 3. No evidence of lobar consolidation Electronically signed by: aVrinder Messer M.D. 08/26/2018 11:34 AM
[2018-08-26] MEDS ORDERED: ALBUT/IPRATROP 3MG/0.5MG NEB 3 ML VIAL NEB STA (13:52)
[2018-08-26] MEDS: WARFARIN SOD 3 MG TAB PO SCH (15:54)
[2018-08-26] MEDS ORDERED: ALBUT/IPRATROP 3MG/0.5MG NEB 3 ML VIAL NEB PRN (17:45)
[2018-08-26] MEDS: ALBUT/IPRATROP 3MG/0.5MG NEB 3 ML VIAL NEB SCH ×2 (19:44→21:10)
[2018-08-26] MEDS: SENNA 8.6 MG TAB PO SCH (20:55)
--- NOTE | 2018-08-26 21:13 | Hospitalist Progress Note ---
Date of Service August 26, 2018 Assessment & Plan (1) CHF (congestive heart failure): Acute right-sided heart failure (Diastolic Dysfunction, Severe Tricuspid Regurgitation) -cont lasix to 60 mg iv tid -cont standing K 20 mEq tid po -cont daily bmp -cont standing daily wts -cont Fluid restriction 1.5L, continue low sodium diet The rhonchi on exam likely due to the CHF repeat CXR on 08/26/18 "1. Cardiomegaly and radiographic evidence of mild congestive failure/fluid overload 2. Small bilateral pleural effusions right greater than left 3. No evidence of lobar consolidation" -CHF management as above -nebulizer treatments for comfort CAD (coronary artery disease): currently stable cont asa, atorvastatin and metoprolol [employer] Debra XT MRI pacemaker is MRI compatible (2) CKD (chronic kidney disease) stage 3, GFR 30-59 ml/min: monitor renal function while on diuresis (3) Acute hip pain: IMPRESSION: 1. No acute process of the right femur. 2. Diffuse soft tissue edema versus cellulitis throughout the right thigh extending from the level of the right hip to the right knee. 3. Calcific trochanteric bursitis right hip. 4. No evidence for a drainable abscess or collection. -- no signs of leg cellulitis hip pain intermittent, mild moderate monitor PT/OT (4) A-fib: INR 1.7 as of 08/25/18, continue daily coumadin and recheck INR on Metoprolol (5) GERD (gastroesophageal reflux disease): stable (6) Hypertension: stable overall continue Metoprolol DVT prophylaxis INR 1.7 as of 08/25/18, continue daily coumadin and recheck INR on coumadin Disposition PT / OT, anticipate need to return to SNF upon discharge Subjective Patient seen and examined earlier. Denies shortness of breath. Breathing on room air. Continues to have swelling of lower extremities. Denies lightheadness. Denies chest pain or palpitations. Denies abdominal pain or vomiting Physical Exam 2 Vital Signs (Past 24 Hours): Last Vital Signs Temp 36.6 C 08/26/18 18:48 Pulse 65 08/26/18 18:48 Resp 18 08/26/18 18:48 BP 117/68 08/26/18 18:48 Pulse Ox 98 08/26/18 18:48 Constitutional: WD/WN, vitals as above Eyes: PERRL, conjunctivae normal, anicteric sclerae EOM intact bilaterally ENMT: external ear and nose normal, oropharynx normal Respiratory: rhonchi on lung exam. no wheezes Cardiovascular: Rate/Rhythm: regular rhythm and + bradycardic Gastrointestinal (Abdomen): normal bowel sounds, soft, nontender, no hepatosplenomegaly Musculoskeletal: no cyanosis or clubbing, extremities motor strength 5/5 ( bilateral lower extremity edema) Head/Neck/Chest: normocephalic and head atraumatic Neurologic: PERRL, EOMI, accommodation nl, no face palsy, no dysarthria CN' s II-XI intact bilaterally Psychiatric: A+Ox3, euthymic affect _ (1) Acute hip pain Laterality: right Qualified Code(s): M25.551 - Pain in right hip (2) CHF (congestive heart failure) Heart failure chronicity: acute on chronic Heart failure type: unspecified Qualified Code(s): I50.9 - Heart failure, unspecified
[2018-08-26] MEDS ORDERED: COUGH DROP (SUGAR FREE) LOZ 24 LOZ/1 BOX BUCCAL ONE (23:17)
[2018-08-27] MEDS: ALBUT/IPRATROP 3MG/0.5MG NEB 3 ML VIAL NEB SCH ×7 (00:05→23:30)
[2018-08-27 06:47] LABS: Hematocrit (blood only) 27.8 % (37-47); Hemoglobin 8.8 g/dL (12.0-16.0); Immature Granulocytes # (auto) 0.01 K/uL (0.00-0.02); Immature Granulocytes % (auto) 0.2 %; Lymphocytes % (auto) 15.7 %; Mean Corpuscular Hgb Conc 31.7 g/dL (32-36); Mean Corpuscular Volume 89.4 fL (80-100); Mean Platelet Volume 10.1 fL (7.4-10.4); Monocytes # (auto) 0.68 K/uL (0.11-0.59); Monocytes % (auto) 13.3 %; Neutrophils # (auto) 3.51 K/uL (1.4-6.5); Neutrophils % (auto) 68.8 %; Platelet Count 145 K/uL (130-400); RDW Coefficient of Variation 17.1 % (11.5-14.5); RDW Standard Deviation 56.1 fL (36.4-46.3); Red Blood Count 3.11 M/uL (4.2-5.4)
[2018-08-27 07:01] LABS: INR 1.7 (0.9-1.1); Prothrombin Time 16.5 Seconds (9.0-12.0)
[2018-08-27 07:08] LABS: Hypochromasia Present; Ovalocytes 1+; Schistocytes 1+
[2018-08-27 07:28] LABS: Albumin Level 2.7 gm/dl (3.4-5.0); Calcium 8.9 mg/dl (8.5-10.1); Creatinine Clr Calc Pharmacy 19.3 ml/min; Est GFR (African American) 23.2; Potassium 3.9 mmol/L (3.5-5.1)
[2018-08-27 07:33] LABS: Albumin Globulin Ratio 0.9 (0.9-2); Bilirubin,Total 0.4 mg/dl (0.2-1); Globulin 3.1 gm/dl (2.5-4.0); Total Protein 5.8 gm/dl (6.4-8.2)
--- NOTE | 2018-08-27 08:05 | Nephrology Progress Note ---
Date of Service August 27, 2018 Assessment & Plan (1) CKD (chronic kidney disease) stage 4, GFR 15-29 ml/min: baseline creatinine 2.0-2.2 > at baseline today. no sujit so far thankfully at clinic last month w/ me in hindsight her weight was already at higher end of her range at 74.8 kg; she was 85.5 kg here on presentation and down to 80.2 today < 80.5 < 815.< 81.7 kg day after admission -lasix as below -anemia of CKD >> declines ravinder; check hgb q 48 hrs; slight decrease noted (2) Peripheral edema: diuresing nicely but more to go> would aim for about 75 kg and breathing/ feeling better -cont INCREASED lasix to 60 mg iv tid -cont standing K 60 mEq tid po -cont daily bmp -cont standing daily wts -cont FR 1.5L but did order <2 gm daily Na diet -f/u cardiology recs--look to add spironolactone when appropriate; defer again today to focus on diuresis (3) Hypertension: remains controlled; cont current meds -cont low Na diet Subjective had a rough night again d/t breathing; seen on rounds this am. +orthopnea. does feel edema better. poor po, no F. wt 80.8>80.2 no n/v. no chest pain. no new/changing musculoskeletal pain. no issues w/ retana. no rash. no anxiety. no new focal numbness/weakness Physical Exam 2 Vital Signs (Past 24 Hours): Last Vital Signs Temp 36.4 C L 08/27/18 03:26 Pulse 78 08/27/18 07:18 Resp 20 08/27/18 07:18 BP 112/60 08/27/18 07:18 Pulse Ox 95 08/27/18 07:18 Constitutional: well developed, well nourished and cooperative on RA, cough w/ deep breath for exam Eyes: EOM intact bilaterally ENMT: Ears: no external ear abnormality Nose: no external nose abnormality Mouth: + dry oral mucous membranes Neck: no nuchal rigidity Respiratory: + labored breathing (w/ exam manuevers) Auscultation: + diminished lung sounds (bl bases), + crackles and + wheezes Cardiovascular: Rate/Rhythm: regular rate and regular rhythm Extremities: + edema (1+ BLE) Gastrointestinal (Abdomen): Inspection/Auscultation: normal bowel sounds Percussion/Palpation: abdomen soft; abdomen nontender Musculoskeletal: needs support to lean forward for lung exam Skin: no rashes, warm and dry Neurologic: awake Speech / Cognition: normal cognition Motor/Sensory: normal movement Psychiatric: A+Ox3, euthymic affect Genitourinary: retana w/ ample urine Results & Data Laboratory Results Abnormal lab results 08/26/18 08/27/18 08/27/18 Range/Units 08:35 06:18 06:18 RBC 3.11 L (4.2-5.4) M/uL Hgb 8.8 L (12.0-16.0) g/dL Hct 27.8 L (37-47) % MCHC 31.7 L (32-36) g/dL RDW Std Deviation 56.1 H (36.4-46.3) fL RDW Coeff of Mykel 17.1 H (11.5-14.5) % Lymph # (Auto) 0.80 L (1.2-3.4) K/uL [place] # (Auto) 0.68 H (0.11-0.59) K/uL PT 16.5 H (9.0-12.0) Seconds INR 1.7 H (0.9-1.1) Sodium 134 L (136-145) mmol/L BUN 60 H (7-18) mg/dl Creatinine 2.33 H (0.6-1.2) mg/dl BUN/Creatinine Ratio 25.9 H (10-20) Glucose 126 H (70-99) mg/dl Total Protein (6.4-8.2) gm/dl Albumin (3.4-5.0) gm/dl 08/27/18 Range/Units 06:18 RBC (4.2-5.4) M/uL Hgb (12.0-16.0) g/dL Hct (37-47) % MCHC (32-36) g/dL RDW Std Deviation (36.4-46.3) fL RDW Coeff of Mykel (11.5-14.5) % Lymph # (Auto) (1.2-3.4) K/uL [place] # (Auto) (0.11-0.59) K/uL PT (9.0-12.0) Seconds INR (0.9-1.1) Sodium (136-145) mmol/L BUN 61 H (7-18) mg/dl Creatinine 2.18 H (0.6-1.2) mg/dl BUN/Creatinine Ratio 28.0 H (10-20) Glucose (70-99) mg/dl Total Protein 5.8 L (6.4-8.2) gm/dl Albumin 2.7 L (3.4-5.0) gm/dl Diagnostic Findings cxr 1. Cardiomegaly and radiographic evidence of mild congestive failure/fluid overload 2. Small bilateral pleural effusions right greater than left 3. No evidence of lobar consolidation
[2018-08-27] MEDS: ATORVASTATIN 40 MG TAB PO SCH (09:01)
[2018-08-27] MEDS: DONEPEZIL HCL 5 MG TAB PO SCH (09:01)
[2018-08-27] MEDS: HydrALAZINE 10 MG TAB PO SCH ×3 (09:01→19:47)
[2018-08-27] MEDS: DOCUSATE SODIUM 100 MG CAP PO SCH ×2 (09:01→19:45)
[2018-08-27] MEDS: CALCIUM 600MG + VIT D 400 IU TAB PO SCH (09:01)
[2018-08-27] MEDS: METOPROLOL TARTRATE 50 MG TAB PO SCH (09:04)
[2018-08-27] MEDS: FERROUS SULFATE 325 MG TAB PO SCH (09:04)
[2018-08-27] MEDS: FUROSEMIDE 60 MG in SYRINGE 0 ML IV SCH ×3 (09:04→19:47)
[2018-08-27] MEDS: POTASSIUM CHLORIDE 20 MEQ TABCR PO SCH ×3 (09:04→19:47)
--- NOTE | 2018-08-27 16:27 | Hospitalist Progress Note ---
Date of Service August 27, 2018 Assessment & Plan (1) CHF (congestive heart failure): Acute right-sided heart failure (Diastolic Dysfunction, Severe Tricuspid Regurgitation) -cont lasix to 60 mg iv tid -cont standing K 20 mEq tid po -cont daily bmp -cont standing daily wts -cont Fluid restriction 1.5L, continue low sodium diet The rhonchi on exam likely due to the CHF repeat CXR on 08/26/18 "1. Cardiomegaly and radiographic evidence of mild congestive failure/fluid overload 2. Small bilateral pleural effusions right greater than left 3. No evidence of lobar consolidation" -CHF management as above -nebulizer treatments for comfort CAD (coronary artery disease): currently stable cont asa, atorvastatin and metoprolol [employer] Debra XT MRI pacemaker is MRI compatible (2) CKD (chronic kidney disease) stage 3, GFR 30-59 ml/min: monitor renal function while on diuresis (3) Acute hip pain: CT femur on 08/22/18 IMPRESSION: 1. No acute process of the right femur. 2. Diffuse soft tissue edema versus cellulitis throughout the right thigh extending from the level of the right hip to the right knee. 3. Calcific trochanteric bursitis right hip. 4. No evidence for a drainable abscess or collection. - no signs of leg cellulitis -no acute hip pain at this time (4) A-fib: INR is still 1.7 on 08/27/18 while on coumadin 3 mg daily will give additional 1 mg of of coumadin today and then switch to coumadin 4 mg daily on Metoprolol (5) GERD (gastroesophageal reflux disease): stable (6) Hypertension: stable overall continue Metoprolol DVT prophylaxis INR is still 1.7 on 08/27/18 while on coumadin 3 mg daily will give additional 1 mg of of coumadin today and then switch to coumadin 4 mg daily [facility] will have a SNF bed available for pt once medically stable Subjective Patient seen and examined earlier. Denies shortness of breath. Breathing on room air. Continues to have swelling of lower extremities. Denies lightheadness. Denies chest pain or palpitations. Denies abdominal pain or vomiting as per nephrology service, will continue to diurese the patient with IV Lasix and remain with retana Physical Exam 2 Vital Signs (Past 24 Hours): Last Vital Signs Temp 36.7 C 08/27/18 15:44 Pulse 65 08/27/18 15:44 Resp 20 08/27/18 15:44 BP 119/72 08/27/18 15:44 Pulse Ox 98 08/27/18 15:44 Constitutional: WD/WN, vitals as above Eyes: PERRL, conjunctivae normal, anicteric sclerae EOM intact bilaterally ENMT: external ear and nose normal, oropharynx normal Cardiovascular: Rate/Rhythm: regular rhythm and + bradycardic Gastrointestinal (Abdomen): normal bowel sounds, soft, nontender, no hepatosplenomegaly Musculoskeletal: no cyanosis or clubbing, extremities motor strength 5/5 ( bilateral lower extremity edema) Head/Neck/Chest: normocephalic and head atraumatic Neurologic: PERRL, EOMI, accommodation nl, no face palsy, no dysarthria CN' s II-XI intact bilaterally Psychiatric: A+Ox3, euthymic affect _ (1) CHF (congestive heart failure) Heart failure chronicity: acute on chronic Heart failure type: unspecified Qualified Code(s): I50.9 - Heart failure, unspecified (2) Acute hip pain Laterality: right Qualified Code(s): M25.551 - Pain in right hip
[2018-08-27] MEDS ORDERED: WARFARIN SOD 1 MG TAB PO STA (16:30)
[2018-08-27] MEDS ORDERED: WARFARIN SOD 4 MG TAB PO ONE (16:45)
[2018-08-27] MEDS: WARFARIN SOD 3 MG TAB PO SCH (19:23)
[2018-08-27] MEDS: SENNA 8.6 MG TAB PO SCH (19:45)
[2018-08-27] MEDS: ACETAMINOPHEN 325 MG TAB PO PRN (19:45)
[2018-08-28] MEDS: ACETAMINOPHEN 325 MG TAB PO PRN ×2 (01:50→20:21)
[2018-08-28] MEDS: ALBUT/IPRATROP 3MG/0.5MG NEB 3 ML VIAL NEB SCH ×2 (03:33→07:41)
[2018-08-28 06:48] LABS: Albumin Level 2.9 gm/dl (3.4-5.0); BUN Creatinine Ratio 28.2 (10-20); Calcium 8.7 mg/dl (8.5-10.1); Creatinine Clr Calc Pharmacy 19.7 ml/min; Est GFR (African American) 23.8; Est GFR (Non-African American) 20.6; Potassium 4.3 mmol/L (3.5-5.1)
[2018-08-28 06:51] LABS: Albumin Globulin Ratio 0.9 (0.9-2); Bilirubin,Total 0.4 mg/dl (0.2-1); Globulin 3.1 gm/dl (2.5-4.0)
[2018-08-28 07:04] LABS: INR 1.7 (0.9-1.1); Prothrombin Time 16.3 Seconds (9.0-12.0)
[2018-08-28] MEDS: FUROSEMIDE 60 MG in SYRINGE 0 ML IV SCH ×3 (09:15→20:16)
[2018-08-28] MEDS: POTASSIUM CHLORIDE 20 MEQ TABCR PO SCH ×3 (09:16→20:16)
[2018-08-28] MEDS: ATORVASTATIN 40 MG TAB PO SCH (09:16)
[2018-08-28] MEDS: FERROUS SULFATE 325 MG TAB PO SCH (09:16)
[2018-08-28] MEDS: METOPROLOL TARTRATE 50 MG TAB PO SCH (09:17)
[2018-08-28] MEDS: HydrALAZINE 10 MG TAB PO SCH ×3 (09:17→20:15)
[2018-08-28] MEDS: DONEPEZIL HCL 5 MG TAB PO SCH (09:17)
[2018-08-28] MEDS: CALCIUM 600MG + VIT D 400 IU TAB PO SCH (09:17)
[2018-08-28] MEDS: ASPIRIN 81 MG ECTAB PO SCH (09:17)
[2018-08-28] MEDS: DOCUSATE SODIUM 100 MG CAP PO SCH ×2 (09:19→20:14)
--- NOTE | 2018-08-28 12:16 | Nephrology Progress Note ---
Date of Service August 28, 2018 Assessment & Plan (1) CKD (chronic kidney disease) stage 4, GFR 15-29 ml/min: baseline creatinine 2.0-2.2 > at baseline today. no sujit so far thankfully at clinic last month w/ me in hindsight her weight was already at higher end of her range at 74.8 kg; she was 85.5 kg here on presentation and down to 79.7 today < 80.2 < 80.5 < 815.< 81.7 kg day after admission -lasix as below -anemia of CKD >> declines ravinder; check hgb q 48 hrs; slight decrease noted >>>would not switch to po diuretics or remove voley until wt at 76.5 kg; would not d/c until wt at 75.5 kg at most and 75 kg would be better (2) Peripheral edema: diuresing nicely but more to go> would aim for about 75 kg and breathing/ feeling better -cont INCREASED lasix to 60 mg iv tid -cont standing K 60 mEq tid po -cont daily bmp -cont standing daily wts -cont FR 1.5L but did order <2 gm daily Na diet -f/u cardiology recs--look to add spironolactone when appropriate; defer again today to focus on diuresis (3) Hypertension: remains controlled; cont current meds -cont low Na diet Subjective seen on rounds this am 0730. slept better; on RA this am. wt 80.2>79.7. less sob/wheeze w/ breathing txs and diuresis. no retana issues no cp/palpitations; edema better she thinks. no rash. no focal numbness/ weakness but + generalized weakness. no n/v/d/abd pain. no f/c or poor appetite. no anxiety or mood concerns. Physical Exam 2 Vital Signs (Past 24 Hours): Last Vital Signs Temp 36.5 C 08/28/18 06:58 Pulse 74 08/28/18 06:58 Resp 19 08/28/18 06:58 BP 123/67 08/28/18 06:58 Pulse Ox 98 08/28/18 06:58 Constitutional: well developed, well nourished and cooperative on RA this am w/o orthopnea unlike yesterday looks better Eyes: EOM intact bilaterally ENMT: Ears: no external ear abnormality Nose: no external nose abnormality Mouth: + dry oral mucous membranes Neck: no nuchal rigidity Respiratory: + labored breathing (still slight w/ exam manuevers) Auscultation: + diminished lung sounds (bl bases) and + crackles (fewer but present) wheezes resolved Cardiovascular: Rate/Rhythm: regular rate and regular rhythm Extremities: + edema (1+ BLE) Gastrointestinal (Abdomen): Inspection/Auscultation: normal bowel sounds Percussion/Palpation: abdomen soft; abdomen nontender Musculoskeletal: Extremities: strength 5/5 throughout (but still needs assist to reposition in bed) Skin: no rashes, warm and dry Neurologic: awake Speech / Cognition: normal cognition Motor/Sensory: normal movement Psychiatric: A+Ox3, euthymic affect Genitourinary: retana present Results & Data Laboratory Results Abnormal lab results 08/28/18 08/28/18 Range/Units 05:27 05:27 PT 16.3 H (9.0-12.0) Seconds INR 1.7 H (0.9-1.1) Sodium 135 L (136-145) mmol/L BUN 60 H (7-18) mg/dl Creatinine 2.13 H (0.6-1.2) mg/dl BUN/Creatinine Ratio 28.2 H (10-20) AST 41 H (15-37) U/L Total Protein 6.0 L (6.4-8.2) gm/dl Albumin 2.9 L (3.4-5.0) gm/dl
--- NOTE | 2018-08-28 15:32 | Cardiology Progress Note ---
Date of Service August 28, 2018 Assessment & Plan (1) Acute right-sided heart failure: markedly volume overloaded with initial response to IV diuresis once again diuresing breathing improving renal function stable will cont with diuresis appreciate our nephrology colleague's input going forward patient would benefit from frequent CHF clinic follow up, unfortunately, she is dependent on her daughters for transportation and they both work during the day, this has been a chronic issue she does have a [facility] PCP would benefit from [facility] at home I will place the order (2) Acute hip pain: Medtronic Debra XT MRI pacemaker is MRI compatible improving (3) CAD (coronary artery disease): complex history currently stable cont asa, atorvastatin and metoprolol Subjective Pt seen and examined, oob in chair, states that she's feeling better today. Breathing and energy levels are improving. Denies cp, palpitations, lightheadedness or dizziness. Tele reviewed: v-paced Review of Systems All systems reviewed & are unremarkable except as noted in HPI & below Physical Exam 2 Vital Signs (Past 24 Hours): Last Vital Signs Temp 36.4 C L 08/28/18 11:46 Pulse 70 08/28/18 11:46 Resp 20 08/28/18 11:46 BP 117/73 08/28/18 11:46 Pulse Ox 98 08/28/18 11:46 Physical Exam: General: Awake, alert and oriented x 3. No acute distress. HEENT: Normocephalic, atraumatic. Pupils equal, round and reactive to light and accommodation. Extraocular muscles are intact. Anicteric sclera. Moist mucous membranes. Neck: No JVD. No bruit. Cardiovascular: regularly irregular, unable to appreciate murmur, rub or gallop. Pulmonary: Clear to auscultation bilaterally. No rales, rhonchi, or wheezing. Abdomen: Bowel sounds x 4, soft. No rebound, guarding or tenderness. No organomegaly. Extremities: No clubbing, cyanosis or edema. +2 pedal pulses bilaterally. Skin: Warm and dry. _ (1) Acute hip pain Laterality: right Qualified Code(s): M25.551 - Pain in right hip
[2018-08-28] MEDS: WARFARIN SOD 4 MG TAB PO SCH (17:03)
--- NOTE | 2018-08-28 17:09 | Hospitalist Progress Note ---
Date of Service August 28, 2018 Assessment & Plan (1) CHF (congestive heart failure): Acute right-sided heart failure (Diastolic Dysfunction, Severe Tricuspid Regurgitation) -cont lasix to 60 mg iv tid -cont standing K 20 mEq tid po -cont daily bmp -cont standing daily wts (nephrology service has recommended that not switch to po diuretics or remove retana until wt at 76.5 kg; would not d/c until wt at 75.5 kg at most and 75 kg would be better) -cont Fluid restriction 1.5L, continue low sodium diet The rhonchi on exam likely due to the CHF repeat CXR on 08/26/18 "1. Cardiomegaly and radiographic evidence of mild congestive failure/fluid overload 2. Small bilateral pleural effusions right greater than left 3. 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 No acute process of the right femur. 2. Diffuse soft tissue edema versus cellulitis throughout the right thigh extending from the level of the right hip to the right knee. 3. Calcific trochanteric bursitis right hip. 4. No evidence for a drainable abscess or collection. - no signs of leg cellulitis -no acute hip pain at this time (4) A-fib: INR is still 1.7 on 08/27/18 while on coumadin 3 mg daily coumadin 4 mg daily started on 08/27/18 INR remains 1.7 on 08/28/18 continue coumadin 4 mg daily on Metoprolol (5) GERD (gastroesophageal reflux disease): stable (6) Hypertension: stable overall continue Metoprolol DVT prophylaxis INR is still 1.7 on 08/27/18 while on coumadin 3 mg daily coumadin 4 mg daily started on 08/27/18 INR remains 1.7 on 08/28/18 continue coumadin 4 mg daily [facility] will have a SNF bed available for pt once patient near target weight has set by nephrology service Subjective Patient seen and examined earlier. Denies shortness of breath. Breathing on room air. Continues to have swelling of lower extremities. Denies lightheadness. Denies chest pain or palpitations. Denies abdominal pain or vomiting as per nephrology service, will continue to diurese the patient with IV Lasix and remain with retana Physical Exam 2 Vital Signs (Past 24 Hours): Last Vital Signs Temp 36.4 C L 08/28/18 15:09 Pulse 91 H 08/28/18 15:09 Resp 16 08/28/18 15:09 BP 106/69 08/28/18 15:09 Pulse Ox 99 08/28/18 15:09 Constitutional: WD/WN, vitals as above Eyes: PERRL, conjunctivae normal, anicteric sclerae EOM intact bilaterally ENMT: external ear and nose normal, oropharynx normal Cardiovascular: Rate/Rhythm: regular rhythm and + bradycardic Gastrointestinal (Abdomen): normal bowel sounds, soft, nontender, no hepatosplenomegaly Musculoskeletal: no cyanosis or clubbing, extremities motor strength 5/5 ( bilateral lower extremity edema) Head/Neck/Chest: normocephalic and head atraumatic Neurologic: PERRL, EOMI, accommodation nl, no face palsy, no dysarthria CN' s II-XI intact bilaterally Psychiatric: A+Ox3, euthymic affect _ (1) CHF (congestive heart failure) Heart failure chronicity: acute on chronic Heart failure type: unspecified Qualified Code(s): I50.9 - Heart failure, unspecified (2) Acute hip pain Laterality: right Qualified Code(s): M25.551 - Pain in right hip
[2018-08-28] MEDS: SENNA 8.6 MG TAB PO SCH (20:15)
[2018-08-29] MEDS: ATORVASTATIN 40 MG TAB PO SCH (08:03)
[2018-08-29] MEDS: HydrALAZINE 10 MG TAB PO SCH ×3 (08:03→21:23)
[2018-08-29] MEDS: CALCIUM 600MG + VIT D 400 IU TAB PO SCH (08:03)
[2018-08-29] MEDS: FERROUS SULFATE 325 MG TAB PO SCH (08:03)
[2018-08-29] MEDS: POTASSIUM CHLORIDE 20 MEQ TABCR PO SCH ×3 (08:03→21:23)
[2018-08-29] MEDS: DONEPEZIL HCL 5 MG TAB PO SCH (08:04)
[2018-08-29] MEDS: METOPROLOL TARTRATE 50 MG TAB PO SCH (08:04)
[2018-08-29] MEDS: DOCUSATE SODIUM 100 MG CAP PO SCH ×2 (08:04→21:23)
[2018-08-29] MEDS: FUROSEMIDE 60 MG in SYRINGE 0 ML IV SCH ×3 (10:50→21:24)
[2018-08-29] MEDS: metOLazone 2.5 MG TABLET PO SCH ×2 (14:47→20:42)
[2018-08-29] MEDS: WARFARIN SOD 4 MG TAB PO SCH (16:13)
--- NOTE | 2018-08-29 18:25 | Hospitalist Progress Note ---
Date of Service August 29, 2018 Assessment & Plan (1) CHF (congestive heart failure): Acute right-sided heart failure (Diastolic Dysfunction, Severe Tricuspid Regurgitation) -cont lasix to 60 mg iv tid , adding metalozone 2.5 mg with each Lasix dose -cont standing K 20 mEq tid po -cont daily bmp -cont standing daily wts (nephrology service has recommended that not switch to po diuretics or remove retana until weight at 76.5 kg; would not d/c until wt at 75.5 kg at most and 75 kg would be better) -cont Fluid restriction 1.5L, continue low sodium diet The rhonchi on exam likely due to the CHF repeat CXR on 08/26/18 "1. Cardiomegaly and radiographic evidence of mild congestive failure/fluid overload 2. Small bilateral pleural effusions right greater than left 3. 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 No acute process of the right femur. 2. Diffuse soft tissue edema versus cellulitis throughout the right thigh extending from the level of the right hip to the right knee. 3. Calcific trochanteric bursitis right hip. 4. No evidence for a drainable abscess or collection. - no signs of leg cellulitis -no acute hip pain at this time (4) A-fib: INR is still 1.7 on 08/27/18 while on coumadin 3 mg daily coumadin 4 mg daily started on 08/27/18 INR remains 1.7 on 08/28/18 continue coumadin 4 mg daily on Metoprolol (5) GERD (gastroesophageal reflux disease): stable (6) Hypertension: stable overall continue Metoprolol DVT prophylaxis INR is still 1.7 on 08/27/18 while on coumadin 3 mg daily coumadin 4 mg daily started on 08/27/18 INR remains 1.7 on 08/28/18 continue coumadin 4 mg daily Disposition [facility] will have a SNF bed available for pt once patient near target weight has set by nephrology service Subjective Patient seen and examined earlier. Denies shortness of breath. Breathing on room air. Denies lightheadness. Denies chest pain or palpitations. Denies abdominal pain or vomiting Continues to have swelling of lower extremities. Weight is relatively unchanged as 79.7 kg. but patient reports that she feels as if more leg swelling retana in place Physical Exam 2 Vital Signs (Past 24 Hours): Last Vital Signs Temp 36.6 C 08/29/18 15:08 Pulse 62 08/29/18 15:08 Resp 20 08/29/18 15:08 BP 124/77 08/29/18 15:08 Pulse Ox 98 08/29/18 15:08 Constitutional: WD/WN, vitals as above Eyes: PERRL, conjunctivae normal, anicteric sclerae EOM intact bilaterally ENMT: external ear and nose normal, oropharynx normal Cardiovascular: Rate/Rhythm: regular rhythm and + bradycardic Gastrointestinal (Abdomen): normal bowel sounds, soft, nontender, no hepatosplenomegaly Musculoskeletal: no cyanosis or clubbing, extremities motor strength 5/5 ( bilateral lower extremity edema) Head/Neck/Chest: normocephalic and head atraumatic Neurologic: PERRL, EOMI, accommodation nl, no face palsy, no dysarthria CN' s II-XI intact bilaterally Psychiatric: A+Ox3, euthymic affect _ (1) CHF (congestive heart failure) Heart failure chronicity: acute on chronic Heart failure type: unspecified Qualified Code(s): I50.9 - Heart failure, unspecified (2) Acute hip pain Laterality: right Qualified Code(s): M25.551 - Pain in right hip
[2018-08-29] MEDS: ACETAMINOPHEN 325 MG TAB PO PRN (21:23)
[2018-08-29] MEDS: SENNA 8.6 MG TAB PO SCH (21:24)
[2018-08-30 07:57] LABS: Eosinophils # (auto) 0.17 K/uL (0-0.5); Eosinophils % (auto) 3.4 %; Hematocrit (blood only) 28.9 % (37-47); Hemoglobin 9.1 g/dL (12.0-16.0); Immature Granulocytes # (auto) 0.01 K/uL (0.00-0.02); Immature Granulocytes % (auto) 0.2 %; Lymphocytes # (auto) 0.75 K/uL (1.2-3.4); Lymphocytes % (auto) 14.9 %; Mean Corpuscular Hgb Conc 31.5 g/dL (32-36); Mean Corpuscular Volume 88.9 fL (80-100); Mean Platelet Volume 10.4 fL (7.4-10.4); Monocytes # (auto) 0.97 K/uL (0.11-0.59); Monocytes % (auto) 19.2 %; Neutrophils # (auto) 3.14 K/uL (1.4-6.5); Neutrophils % (auto) 62.3 %; Platelet Count 168 K/uL (130-400); RDW Coefficient of Variation 17.1 % (11.5-14.5); Red Blood Count 3.25 M/uL (4.2-5.4); White Blood Count 5.04 K/uL (4.8-10.8)
[2018-08-30 08:08] LABS: INR 2.2 (0.9-1.1); Prothrombin Time 21.1 Seconds (9.0-12.0)
[2018-08-30 08:30] LABS: BUN Creatinine Ratio 29.7 (10-20); Calcium 9.1 mg/dl (8.5-10.1); Creatinine Clr Calc Pharmacy 19.3 ml/min; Est GFR (African American) 23.2; Potassium 3.7 mmol/L (3.5-5.1)
[2018-08-30] MEDS: DONEPEZIL HCL 5 MG TAB PO SCH (08:34)
[2018-08-30] MEDS: DOCUSATE SODIUM 100 MG CAP PO SCH ×2 (08:34→20:52)
[2018-08-30] MEDS: HydrALAZINE 10 MG TAB PO SCH ×3 (08:34→20:51)
[2018-08-30] MEDS: FERROUS SULFATE 325 MG TAB PO SCH (08:35)
[2018-08-30] MEDS: ATORVASTATIN 40 MG TAB PO SCH (08:35)
[2018-08-30] MEDS: metOLazone 2.5 MG TABLET PO SCH (08:35)
[2018-08-30] MEDS: METOPROLOL TARTRATE 50 MG TAB PO SCH (08:35)
[2018-08-30] MEDS: CALCIUM 600MG + VIT D 400 IU TAB PO SCH (08:35)
[2018-08-30] MEDS: POTASSIUM CHLORIDE 20 MEQ TABCR PO SCH ×3 (08:36→20:51)
[2018-08-30] MEDS: FUROSEMIDE 60 MG in SYRINGE 0 ML IV SCH (09:24)
--- NOTE | 2018-08-30 11:07 | Progress Note ---
DATE: 08/30/2018 SUBJECTIVE: Patient is still on IV Lasix 60 mg 3 times a day, and with that, she is making about 2800 mL of urine. She feels better from the breathing standpoint, although she still has significant lower extremity edema as well as orthopnea. Weight is coming down, and weight today was 78.4 kg, so this is coming down. Denies any new issues. OBJECTIVE: VITAL SIGNS: Blood pressure is 123/71, pulse rate 89, respiratory rate 18, and 95% on room air. Urine output 2750 mL. HEENT: Mucous membranes moist. NECK: Supple. No jugular venous distention. CHEST: Bilateral decreased breath sounds, occasional crackles. CARDIOVASCULAR SYSTEM: S1 and S2 distant. GASTROINTESTINAL: Abdomen is soft, nontender, obese. EXTREMITIES: Show 2+ edema. LABORATORY DATA: Laboratory tests were reviewed in detail, and the labs from this morning show sodium 137, potassium 3.7, BUN 65, creatinine is 2.18 and has been fairly stable for the last 4 days. ASSESSMENT AND PLAN: An 87-year-old female with chronic kidney disease stage IV and fluid overload. RECOMMENDATIONS: 1. Patient's renal function is at baseline for many days now. 2. Fluid overload. She still has evidence of fluid overload. The goal dry weight was supposed to be around 75 kg. She is still above the goal dry weight by about 4 kg. Raise lasix to 80 iv tid. Lower metolazone to 5 daily. Hopefully, in the next few days, we should be able to get to the goal dry weight. PLAN: Continue [place]. Continue IV Lasix and oral metolazone. Continue daily labs. MTDD
--- NOTE | 2018-08-30 11:23 | Hospitalist Progress Note ---
Date of Service August 30, 2018 Assessment & Plan (1) CHF (congestive heart failure): Acute right-sided heart failure (Diastolic Dysfunction, Severe Tricuspid Regurgitation) nephrology service has recommended that not switch to po diuretics or remove retana until weight at 76.5 kg; would not d/c until wt at 75.5 kg at most and 75 kg would be better -patient appears to be doing well with Lasix IV 60 mg TID with metalozone and being increased with Lasix IV 80 mg TID with daily metalozone 2.5 mg -cont Fluid restriction 1.5L, continue low sodium diet -cont standing K 20 mEq tid po -cont daily bmp -cont standing daily wts The rhonchi on exam likely due to the CHF repeat CXR on 08/26/18 "1. Cardiomegaly and radiographic evidence of mild congestive failure/fluid overload 2. Small bilateral pleural effusions right greater than left 3. 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 No acute process of the right femur. 2. Diffuse soft tissue edema versus cellulitis throughout the right thigh extending from the level of the right hip to the right knee. 3. Calcific trochanteric bursitis right hip. 4. No evidence for a drainable abscess or collection. - no signs of leg cellulitis -no acute hip pain at this time (4) A-fib: INR is still 1.7 on 08/27/18 while on coumadin 3 mg daily coumadin 4 mg daily started on 08/27/18 INR remains 1.7 on 08/28/18 INR 2.2 on 08/30/18 continue coumadin 4 mg daily on Metoprolol (5) GERD (gastroesophageal reflux disease): stable (6) Hypertension: stable overall continue Metoprolol DVT prophylaxis continue coumadin 4 mg daily Disposition [facility] will have a SNF bed available for pt once patient near target weight has set by nephrology service Subjective Patient seen and examined earlier. Denies shortness of breath. Breathing on room air. Denies lightheadness. Denies chest pain or palpitations. Denies abdominal pain or vomiting Continues to have swelling of lower extremities. Weight is decreased at 78.4 kg and patient is diuresing better with the Metolzaone added to the IV Lasix retana in place Physical Exam 2 Vital Signs (Past 24 Hours): Last Vital Signs Temp 36.5 C 08/30/18 07:04 Pulse 69 08/30/18 08:00 Resp 18 08/30/18 07:04 BP 123/71 08/30/18 07:04 Pulse Ox 95 08/30/18 07:04 Constitutional: WD/WN, vitals as above Eyes: PERRL, conjunctivae normal, anicteric sclerae EOM intact bilaterally ENMT: external ear and nose normal, oropharynx normal Respiratory: normal respiratory effort, lungs clear to auscultation Cardiovascular: Rate/Rhythm: regular rhythm and + bradycardic Gastrointestinal (Abdomen): normal bowel sounds, soft, nontender, no hepatosplenomegaly Musculoskeletal: no cyanosis or clubbing, extremities motor strength 5/5 ( bilateral lower extremity edema) Head/Neck/Chest: normocephalic and head atraumatic Neurologic: PERRL, EOMI, accommodation nl, no face palsy, no dysarthria CN' s II-XI intact bilaterally Psychiatric: A+Ox3, euthymic affect _ (1) Acute hip pain Laterality: right Qualified Code(s): M25.551 - Pain in right hip (2) CHF (congestive heart failure) Heart failure chronicity: acute on chronic Heart failure type: unspecified Qualified Code(s): I50.9 - Heart failure, unspecified
[2018-08-30] MEDS: FUROSEMIDE 80 MG in SYRINGE 0 ML IV SCH ×2 (13:59→21:11)
[2018-08-30] MEDS: WARFARIN SOD 4 MG TAB PO SCH (17:05)
[2018-08-30] MEDS: SENNA 8.6 MG TAB PO SCH (20:51)
[2018-08-31 08:11] LABS: Basophils # (auto) 0.01 K/uL (0-0.2); Basophils % (auto) 0.2 %; Eosinophils # (auto) 0.16 K/uL (0-0.5); Eosinophils % (auto) 2.5 %; Hematocrit (blood only) 32.4 % (37-47); Immature Granulocytes # (auto) 0.01 K/uL (0.00-0.02); Immature Granulocytes % (auto) 0.2 %; Lymphocytes # (auto) 0.93 K/uL (1.2-3.4); Lymphocytes % (auto) 14.3 %; Mean Corpuscular Volume 89.3 fL (80-100); Mean Platelet Volume 10.7 fL (7.4-10.4); Monocytes # (auto) 1.16 K/uL (0.11-0.59); Monocytes % (auto) 17.8 %; Neutrophils # (auto) 4.24 K/uL (1.4-6.5); Platelet Count 189 K/uL (130-400); RDW Standard Deviation 55.8 fL (36.4-46.3); Red Blood Count 3.63 M/uL (4.2-5.4); White Blood Count 6.51 K/uL (4.8-10.8)
[2018-08-31 08:15] LABS: Mean Corpuscular Hgb Conc 30.9 g/dL (32-36)
--- NOTE | 2018-08-31 08:18 | Nephrology Progress Note ---
Date of Service August 31, 2018 Assessment & Plan (1) CKD (chronic kidney disease) stage 4, GFR 15-29 ml/min: baseline creatinine 2.0-2.2 > at baseline so far this admission; today's labs pending on intensified diuretics >> still at baseline at clinic last month w/ me [facility] her weight was already at higher end of her range at 74.8 kg; she was 85.5 kg here on presentation and down to 75.3 today -lasix as below -anemia of CKD >> declines ravinder; check hgb q 48 hrs; improving w/ diuresis, which is not uncommon >>>would not switch to po diuretics or remove retana until wt at 76.5 kg; would not d/c until wt at 75.5 kg at most and 75 kg would be better >>has f/u appt w/ me 09/21 in [facility] at 0930 (2) Peripheral edema: diuresing nicely and in range to prepare for d/c assuming no SEUN; would aim for about 75 kg at d/c and breathing/feeling better -change lasix IV to torsemide 60 mg daily IF renal function today stable -d/c metolazone -cont standing K 60 mEq tid po -cont daily bmp -cont standing daily wts now and at d/c -cont FR 1.5L but did order <2 gm daily Na diet now and at d/c -f/u cardiology recs--look to add spironolactone when appropriate -- would consider this after d/c/ and renal/cardiology f/u (3) Hypertension: remains controlled; cont current meds -cont low Na diet Subjective not sob and slept better. feels edema unchanged. retana out this am and voiding ok. no chest pain. no n/v/d/abd pain. no f/c or decreased po. no rash. no focal numbness/weakness or confusion. no acute vision change or OCONNOR Physical Exam 2 Vital Signs (Past 24 Hours): Last Vital Signs Temp 36.7 C 08/31/18 06:40 Pulse 77 08/31/18 06:40 Resp 18 08/31/18 06:40 BP 136/70 08/31/18 06:40 Pulse Ox 96 08/31/18 06:40 Constitutional: well developed, well nourished and cooperative up in chair on RA Eyes: EOM intact bilaterally ENMT: Ears: no external ear abnormality Nose: no external nose abnormality Mouth: + dry oral mucous membranes Neck: no nuchal rigidity Respiratory: Auscultation: + diminished lung sounds (bl bases), + crackles ( fewer but present) and + rhonchi Cardiovascular: Rate/Rhythm: regular rate and regular rhythm Heart Sounds: + murmur Extremities: + edema (1+ BLE) Gastrointestinal (Abdomen): Inspection/Auscultation: normal bowel sounds Percussion/Palpation: abdomen soft; abdomen nontender Musculoskeletal: Extremities: strength 5/5 throughout (but still needs assist to reposition in bed) Skin: no rashes, warm and dry Neurologic: awake Speech / Cognition: normal cognition Motor/Sensory: normal movement Psychiatric: A+Ox3, euthymic affect Genitourinary: no retana Results & Data Laboratory Results Abnormal lab results 08/31/18 08/31/18 08/31/18 Range/Units 07:46 07:46 07:46 RBC 3.63 L (4.2-5.4) M/uL Hgb 10.0 L (12.0-16.0) g/dL Hct 32.4 L (37-47) % MCHC 30.9 L (32-36) g/dL RDW Std Deviation 55.8 H (36.4-46.3) fL RDW Coeff of Mykel 17.0 H (11.5-14.5) % MPV 10.7 H (7.4-10.4) fL Lymph # (Auto) 0.93 L (1.2-3.4) K/uL [place] # (Auto) 1.16 H (0.11-0.59) K/uL PT 23.8 H (9.0-12.0) Seconds INR 2.5 H (0.9-1.1) Chloride 97 L (98-107) mmol/L BUN 62 H (7-18) mg/dl Creatinine 2.21 H (0.6-1.2) mg/dl BUN/Creatinine Ratio 28.0 H (10-20) AST 44 H (15-37) U/L Albumin 3.2 L (3.4-5.0) gm/dl
[2018-08-31 08:20] LABS: INR 2.5 (0.9-1.1); Prothrombin Time 23.8 Seconds (9.0-12.0)
[2018-08-31] MEDS: HydrALAZINE 10 MG TAB PO SCH ×3 (08:21→20:22)
[2018-08-31] MEDS: DONEPEZIL HCL 5 MG TAB PO SCH (08:21)
[2018-08-31] MEDS: CALCIUM 600MG + VIT D 400 IU TAB PO SCH (08:22)
[2018-08-31] MEDS: DOCUSATE SODIUM 100 MG CAP PO SCH ×2 (08:22→20:22)
[2018-08-31] MEDS: POTASSIUM CHLORIDE 20 MEQ TABCR PO SCH ×3 (08:23→20:23)
[2018-08-31] MEDS: FERROUS SULFATE 325 MG TAB PO SCH (08:23)
[2018-08-31] MEDS: ATORVASTATIN 40 MG TAB PO SCH (08:24)
[2018-08-31] MEDS: METOPROLOL TARTRATE 50 MG TAB PO SCH (08:24)
[2018-08-31 08:27] LABS: Albumin Level 3.2 gm/dl (3.4-5.0); Calcium 9.7 mg/dl (8.5-10.1); Creatinine Clr Calc Pharmacy 18.5 ml/min; Est GFR (African American) 22.8; Est GFR (Non-African American) 19.7; Potassium 3.6 mmol/L (3.5-5.1)
[2018-08-31 08:30] LABS: Albumin Globulin Ratio 0.9 (0.9-2); Bilirubin,Total 0.4 mg/dl (0.2-1); Globulin 3.4 gm/dl (2.5-4.0); Total Protein 6.6 gm/dl (6.4-8.2)
[2018-08-31] MEDS: ASPIRIN 81 MG ECTAB PO SCH (08:30)
[2018-08-31] MEDS: FUROSEMIDE 80 MG in SYRINGE 0 ML IV SCH (08:31)
--- NOTE | 2018-08-31 08:49 | Hospitalist Progress Note ---
Date of Service August 31, 2018 Assessment & Plan (1) CHF (congestive heart failure): Acute right-sided heart failure (Diastolic Dysfunction, Severe Tricuspid Regurgitation) -during this hospital stay, patient has received aggressive diuretics with IV diuretics -as or recently between 08/29/18 to 08/31/18; patient appears to be doing well with Lasix IV 60 mg TID with metalozone and being increased with Lasix IV 80 mg TID with daily metalozone 2.5 mg -08/31/18 Patient's weight was noted to have been recorded at 75.3 kg today. When hospitalist asked nurse to re-check, the weight as 76 kg. Still this is a significant decrease in fluid weight since the weekend from 78.4 kg -will transition the diuretics to oral torsemide 60 mg daily and discontinue the retana as patient have al nephrology service previously set targeted weight for retana removal -cont Fluid restriction 1.5L, continue low sodium diet -cont standing K 20 mEq tid po -cont daily bmp -cont standing daily wts repeat CXR on 08/26/18 "1. Cardiomegaly and radiographic evidence of mild congestive failure/fluid overload 2. Small bilateral pleural effusions right greater than left 3. 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 No acute process of the right femur. 2. Diffuse soft tissue edema versus cellulitis throughout the right thigh extending from the level of the right hip to the right knee. 3. Calcific trochanteric bursitis right hip. 4. No evidence for a drainable abscess or collection. - no signs of leg cellulitis -no acute hip pain at this time (4) A-fib: on Metoprolol, continue home dose coumadin is usually 2 mg daily INR is still 1.7 on 08/27/18 while on coumadin 3 mg daily coumadin 4 mg daily started on 08/27/18 INR remains 1.7 on 08/28/18 INR 2.2 on 08/30/18 INR 2.5 on 08/31/18, switch from coumadin 4 mg daily to 3.5 mg daily to avoid supratherapeutic INR (5) GERD (gastroesophageal reflux disease): stable (6) Hypertension: stable overall continue Metoprolol DVT prophylaxis continue coumadin 4 mg daily Disposition transitioning from IV diuretic to oral diuretic on 08/31/18 [facility] will have a SNF bed available for pt once patient stable on oral diuretic Future clinic appointments 09/04/2018 12:40 PM Camilo Randall MD [facility] 09/11/2018 3:00 PM Elliott Ludwig PA-C Cardiology, [facility] 09/21/2018 9:30 AM Ya Tan MD Nephrology [facility] 09/23/2018 2:00 PM Camilo Randall MD [facility] 11/02/2018 1:50 PM Ya Tan MD Nephrology [facility] Subjective Patient seen and examined earlier. Patient reports she has noted the leg swelling is less today Denies shortness of breath. Breathing on room air. Denies lightheadness. Denies chest pain or palpitations. Denies abdominal pain or vomiting Physical Exam 2 Vital Signs (Past 24 Hours): Last Vital Signs Temp 36.7 C 08/31/18 06:40 Pulse 77 08/31/18 06:40 Resp 18 08/31/18 06:40 BP 136/70 08/31/18 06:40 Pulse Ox 96 08/31/18 06:40 Constitutional: WD/WN, vitals as above Eyes: PERRL, conjunctivae normal, anicteric sclerae EOM intact bilaterally ENMT: external ear and nose normal, oropharynx normal Respiratory: normal respiratory effort, lungs clear to auscultation Cardiovascular: Rate/Rhythm: regular rhythm and + bradycardic Gastrointestinal (Abdomen): normal bowel sounds, soft, nontender, no hepatosplenomegaly Musculoskeletal: no cyanosis or clubbing, extremities motor strength 5/5 ( bilateral lower extremity edema) Head/Neck/Chest: normocephalic and head atraumatic Neurologic: PERRL, EOMI, accommodation nl, no face palsy, no dysarthria CN' s II-XI intact bilaterally Psychiatric: A+Ox3, euthymic affect _ (1) Acute hip pain Laterality: right Qualified Code(s): M25.551 - Pain in right hip (2) CHF (congestive heart failure) Heart failure chronicity: acute on chronic Heart failure type: unspecified Qualified Code(s): I50.9 - Heart failure, unspecified
[2018-08-31] MEDS ORDERED: metOLazone 2.5 MG TABLET PO SCH (09:00)
--- NOTE | 2018-08-31 09:59 | Cardiology Progress Note ---
Date of Service August 31, 2018 Assessment & Plan (1) Acute right-sided heart failure: History of ventricular paced rhythm with underlying atrial fibrillation. INR is at goal at 2.5 per Nephrology input noted and appreciated. Creatinine relatively stable at 2.2 today, potassium 3.6. Agree with torsemide 60 mg p.o. daily. Stable from discharge/transfer to rehab from cardiology perspective. Outpatient appointment in process. (2) A-fib: Subjective Chief complaint: Follow-up lower extremity edema Subjective: Patient feels comfortable. Denies any hip pain at present. This is the first time she is assessed by the undersigned during this admission, and per patient report, and per review of her records, it appears she has trended toward significant improvement over the last few days. Her diuretics have been transitioned to oral. She is not being monitored on telemetry at present peer Physical Exam 2 Vital Signs (Past 24 Hours): Last Vital Signs Temp 36.7 C 08/31/18 06:40 Pulse 77 08/31/18 06:40 Resp 18 08/31/18 06:40 BP 136/70 08/31/18 06:40 Pulse Ox 96 08/31/18 06:40 Constitutional: WD/WN, vitals as above Respiratory: normal respiratory effort, lungs clear to auscultation Cardiovascular: Rate/Rhythm: regular rate and regular rhythm Heart Sounds: + murmur (I/ systolic murmur) Extremities: + edema (Trace lower extremity edema) Gastrointestinal (Abdomen): Percussion/Palpation: abdomen soft; abdomen nontender, no guarding and abdomen not rigid
[2018-08-31] MEDS: TORSEMIDE 20 MG TAB PO SCH (11:37)
[2018-08-31] MEDS ORDERED: WARFARIN SOD 1 MG TAB PO SCH (16:00)
[2018-08-31] MEDS ORDERED: WARFARIN SOD 2.5 MG TAB PO SCH (16:00)
[2018-08-31] MEDS: SENNA 8.6 MG TAB PO SCH (20:23)
--- NOTE | 2018-09-01 08:58 | Nephrology Progress Note ---
Date of Service September 01, 2018 Assessment & Plan (1) CKD (chronic kidney disease) stage 4, GFR 15-29 ml/min: baseline creatinine 2.0-2.2 > at baseline so far this admission; today's labs pending on intensified diuretics >> still at baseline at clinic last month w/ me in [facility] her weight was already at higher end of her range at 74.8 kg; she was 85.5 kg here on presentation and down to 75.3 > 74.4 today -anemia of CKD >> declines ravinder; check hgb q 48 hrs; improving w/ diuresis, which is not uncommon >>>she is at target wt for d/c >>has f/u appt w/ me 09/21 in [facility] at 0930 -cardiology and I have been in touch w/ PCP re f/u as outpt at home >> does not qualify for [facility] unfortunately but they are looking into case mgt, HF nurse, HHN f/u -given all the changes in diuretics and K dosing past 48 hrs, I ordered labs for today >> K low normal, creat on slight upward trend -- will f/u w/ labs w/ in 48 hrs and adjust torsemide, K dosing (2) Peripheral edema: diuresing nicely and in range to prepare for d/c assuming no SEUN; would aim for about 75 kg at d/c and breathing/feeling better -yesterday changed lasix IV to torsemide 60 mg daily and stopped metolazone -cont standing K 60 mEq tid po - but note this is aggressive dose for ckd4 -cont daily bmp -cont standing daily wts now and at d/c -cont FR 1.5L but did order <2 gm daily Na diet now and at d/c -f/u cardiology recs--look to add spironolactone when appropriate -- would consider this after d/c/ and renal/cardiology f/u (3) Hypertension: remains controlled; cont current meds w/ exception that I changed hydralazine from tid to bid for ease of OP dosing -cont low Na diet Subjective seen on rounds this am at 0930 - hoping for d/c today. wt down to 74.4 kg this am. slept well. no sob. worried about urinary frequency and getting to bathroom. less edema but still present; no chest pain/palpitations. no n/v/d/ abd pain. no rash. no f/c or poor appetite. no focal numbness/weakness; no depression but some anxiety Physical Exam 2 Vital Signs (Past 24 Hours): Last Vital Signs Temp 37.0 C 09/01/18 07:00 Pulse 61 09/01/18 07:00 Resp 20 09/01/18 07:00 BP 100/54 L 09/01/18 07:00 Pulse Ox 97 09/01/18 07:00 Constitutional: well developed, well nourished and cooperative dosing in bed on ra but wakens fully Eyes: EOM intact bilaterally ENMT: Ears: no external ear abnormality Nose: no external nose abnormality Mouth: + dry oral mucous membranes Neck: no nuchal rigidity Respiratory: Auscultation: + diminished lung sounds (bl bases) and + rhonchi Cardiovascular: Rate/Rhythm: regular rate and regular rhythm Heart Sounds: + murmur Extremities: + edema (1+ BLE) Gastrointestinal (Abdomen): Inspection/Auscultation: normal bowel sounds Percussion/Palpation: abdomen soft; abdomen nontender Musculoskeletal: Extremities: strength 5/5 throughout (but still needs assist to reposition in bed) Skin: no rashes, warm and dry Neurologic: awake Speech / Cognition: normal cognition Motor/Sensory: normal movement Psychiatric: A+Ox3, euthymic affect Genitourinary: no retana Results & Data Laboratory Results no labs this am but I ordered
[2018-09-01] MEDS: CALCIUM 600MG + VIT D 400 IU TAB PO SCH (09:26)
[2018-09-01] MEDS: DONEPEZIL HCL 5 MG TAB PO SCH (09:26)
[2018-09-01] MEDS: POTASSIUM CHLORIDE 20 MEQ TABCR PO SCH (09:27)
[2018-09-01] MEDS: FERROUS SULFATE 325 MG TAB PO SCH (09:27)
[2018-09-01] MEDS: TORSEMIDE 20 MG TAB PO SCH (09:27)
[2018-09-01] MEDS: METOPROLOL TARTRATE 50 MG TAB PO SCH (09:28)
[2018-09-01] MEDS: DOCUSATE SODIUM 100 MG CAP PO SCH (09:28)
[2018-09-01] MEDS: ATORVASTATIN 40 MG TAB PO SCH (09:28)
[2018-09-01] MEDS ORDERED: HydrALAZINE 10 MG TAB PO SCH (09:30)
[2018-09-01 09:46] LABS: BUN Creatinine Ratio 25.8 (10-20); Calcium 9.4 mg/dl (8.5-10.1); Creatinine Clr Calc Pharmacy 16.7 ml/min; Est GFR (African American) 20.3; Est GFR (Non-African American) 17.5; Potassium 3.6 mmol/L (3.5-5.1)
--- NOTE | 2018-09-01 12:00 | Hospitalist Progress Note ---
Date of Service September 01, 2018 Assessment & Plan (1) CHF (congestive heart failure): Acute right-sided heart failure (Diastolic Dysfunction, Severe Tricuspid Regurgitation) -during this hospital stay, patient has received aggressive diuretics with IV diuretics -as or recently between 08/29/18 to 08/31/18; patient appears to be doing well with Lasix IV 60 mg TID with metalozone and being increased with Lasix IV 80 mg TID with daily metalozone 2.5 mg -08/31/18 Patient's weight was noted to have been recorded at 75.3 kg today. When hospitalist asked nurse to re-check, the weight as 76 kg. Still this is a significant decrease in fluid weight since the weekend from 78.4 kg -will transition the diuretics to oral torsemide 60 mg daily and discontinue the retana as patient have pr nephrology service previously set targeted weight for retana removal -09/01/18 weight is 74.4 kg continue torsemide 60 mg daily as outpatient -cont Fluid restriction 1.5L, continue low sodium diet as outpatient -cont standing K 20 mEq tid po as outpatient repeat CXR on 08/26/18 "1. Cardiomegaly and radiographic evidence of mild congestive failure/fluid overload 2. Small bilateral pleural effusions right greater than left 3. 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 No acute process of the right femur. 2. Diffuse soft tissue edema versus cellulitis throughout the right thigh extending from the level of the right hip to the right knee. 3. Calcific trochanteric bursitis right hip. 4. No evidence for a drainable abscess or collection. - no signs of leg cellulitis -no acute hip pain at this time (4) A-fib: on Metoprolol, continue home dose coumadin is usually 2 mg daily INR is still 1.7 on 08/27/18 while on coumadin 3 mg daily coumadin 4 mg daily started on 08/27/18 INR remains 1.7 on 08/28/18 INR 2.2 on 08/30/18 INR 2.5 on 08/31/18, switch from coumadin 4 mg daily to 3.5 mg daily to avoid supratherapeutic INR discharge on coumadin 3 mg daily for ease of dosing, outpatient INR check as needed (5) GERD (gastroesophageal reflux disease): stable (6) Hypertension: stable overall continue Metoprolol DVT prophylaxis continue coumadin Discharge Diagnosis Right Sided heart failure (fluid overload), CKD stage 3, atrial fibrillation ( rate controlled) anticoagulated on coumadin, coronary artery disease Discharge Directions Patient being discharged to [facility]. Patient should continue with medication changes made in the hospital as Torsemide 60 mg daily, potassium chloride 20 meq TID (prescription of this dosing given only for 10 days), hydralazine 10 mg BID, coumadin 3 mg daily Patient should follow up with primary care doctor and have repeat labs for renal function, potassium levels, and INR checked in case medication changes needed to be made. The weight on discharge is 74.4 kilograms Follow up 09/04/2018 12:40 PM Camilo Randall MD [facility] 09/11/2018 3:00 PM Elliott Ludwig PA-C Cardiology, [facility] 09/21/2018 9:30 AM Ya Tan MD Nephrology [facility] 09/23/2018 2:00 PM Camilo Randall MD [facility] 11/02/2018 1:50 PM Ya Tan MD Nephrology [facility] Subjective Patient seen and examined earlier. Has leg swelling that has been reduced on this admission Denies shortness of breath. Breathing on room air. Denies lightheadness. Denies chest pain or palpitations. Denies abdominal pain or vomiting Physical Exam 2 Vital Signs (Past 24 Hours): Last Vital Signs Temp 37.0 C 09/01/18 07:00 Pulse 61 09/01/18 07:00 Resp 20 09/01/18 07:00 BP 100/54 L 09/01/18 07:00 Pulse Ox 97 09/01/18 07:00 Constitutional: WD/WN, vitals as above Eyes: PERRL, conjunctivae normal, anicteric sclerae EOM intact bilaterally ENMT: external ear and nose normal, oropharynx normal Respiratory: normal respiratory effort, lungs clear to auscultation Cardiovascular: Rate/Rhythm: regular rhythm and + bradycardic Gastrointestinal (Abdomen): normal bowel sounds, soft, nontender, no hepatosplenomegaly Musculoskeletal: no cyanosis or clubbing, extremities motor strength 5/5 ( bilateral lower extremity edema) Head/Neck/Chest: normocephalic and head atraumatic Neurologic: PERRL, EOMI, accommodation nl, no face palsy, no dysarthria CN' s II-XI intact bilaterally Psychiatric: A+Ox3, euthymic affect _ (1) Acute hip pain Laterality: right Qualified Code(s): M25.551 - Pain in right hip (2) CHF (congestive heart failure) Heart failure chronicity: acute on chronic Heart failure type: unspecified Qualified Code(s): I50.9 - Heart failure, unspecified
--- NOTE | 2018-09-01 12:02 | Discharge Summary ---
Date of Service September 01, 2018 Admission HPI Per Admitting Provider 87-year-old female with a past medical history of hypertension, GERD, CAD, chronic kidney disease, solitary kidney, atrial fibrillation, sick sinus syndrome, degenerative disc disease of the lumbar spine who is here week ago with hip pain was treated and released went to [facility] for rehab. While at [facility] she developed lower extremity edema right greater than left which increased over the last several days. She has been having persistent hip pain she had an x-ray here an x-ray at [facility] in [place] that were both negative. She cannot have an MRI secondary to pacemaker and knee replacement. Her daughter noticed lower extremity swelling that began about 2 days ago getting increasingly worse it started on the right and increased on the left as well. Upon presentation she was found to have a BNP in the 19,000 range. ROS-No Headache, No Visual Changes, No Fever, No Chills, No Neck Pain or Stiffness, No Chest Pain, No Palpitations, no SOB, no MARTIN, positive cough, No Sputum, No Wheezing, No Abdominal Pain, No Diarrhea, No Hematemesis, No Hemoptysis, +14 pound weight gain over the past week, No Flank pain, No Melena, No Hematochezia, No Frequency, No Urgency, No Burning, No Hematuria, No Rashes, No Diaphoresis. Appetite is Normal, positive bilateral lower extremity edema right greater than left Physical Exam Gen-AAO x 3, NAD, Afebrile, obese with a BMI of 32 Head-NCAT, EOMI, PERRLA, Anicteric Sclera, No Posterior Pharyngeal Erythema Neck-Supple, No JVD, No Thyromegaly, No Masses, No LAD, No Bruits Lungs-Clear to Auscultation Bilaterally, No Rales, No Rhonchi, No Wheezing, No Crepitus Chest-No S4, +S1, +S2, No S3, No Murmurs, No Rubs, No Gallops, No Ectopy Abdomen-Soft, Bowel Sounds Present, Non Tender, Non Distended, No Hepatomegaly, No Splenomegaly, No Palpable Masses, No Rebound, No Rigidity, No Guarding Musculoskeletal-Full Range of Motion Bilaterally, No CVAT Extremities-No Cyanosis, No Clubbing, positive edema. Nuero-Cranial Nerves II-XII grossly intact, Motor WNL, DTRs WNL, Strength WNL, No Focal Psych-Normal Mood PMH-hypertension, GERD, CAD, CKD, solitary kidney, pacemaker insertion, A. fib, sick sinus syndrome, degenerative disease. PSH-bilateral shoulder surgery with replacements, pacemaker insertion, appendectomy, total abdominal hysterectomy FH-5 brothers 1 of which of cancer the other for healthy, one sister of cancer, another sister alive and healthy, one son of cancer, 3 other sons are alive and healthy daughters are healthy. SH-no tobacco drugs or alcohol, she lives alone, she will be living in a personal care facility, she is a . Meds reviewed and Reconciled Labs Reviewed Principal Diagnosis Right Sided heart failure (fluid overload), CKD stage 3, atrial fibrillation ( rate controlled) anticoagulated on coumadin, coronary artery disease Discharge Exam Constitutional WD/WN, vitals as above Eyes PERRL, conjunctivae normal, anicteric sclerae EOM intact bilaterally ENMT external ear and nose normal, oropharynx normal Respiratory normal respiratory effort, lungs clear to auscultation Cardiovascular Rate/Rhythm: regular rhythm and + bradycardic Gastrointestinal (Abdomen) normal bowel sounds, soft, nontender, no hepatosplenomegaly Musculoskeletal no cyanosis or clubbing, extremities motor strength 5/5 (bilateral lower extremity edema) Head/Neck/Chest: normocephalic and head atraumatic Neurologic PERRL, EOMI, accommodation nl, no face palsy, no dysarthria CN's II-XI intact bilaterally Psychiatric A+Ox3, euthymic affect Discharge Data Allergies Allergy/AdvReac Type Severity Reaction Status Date / Time lisinopril Allergy Mild OTHER Verified 08/22/18 14:06 adhesive Allergy Unknown . Verified 08/22/18 14:06 amiodarone Allergy Unknown . Verified 08/22/18 14:06 Consultations 08/22/18 15:53 ED Decision to Admit Stat 08/22/18 18:42 Consult Cardiology Routine Consult Nephrology Routine Ordered Studies 08/22/18 18:42 CT femur RT wo con Stat Hospital Course (1) CHF (congestive heart failure): Acute right-sided heart failure (Diastolic Dysfunction, Severe Tricuspid Regurgitation) -during this hospital stay, patient has received aggressive diuretics with IV diuretics -as or recently between 08/29/18 to 08/31/18; patient appears to be doing well with Lasix IV 60 mg TID with metalozone and being increased with Lasix IV 80 mg TID with daily metalozone 2.5 mg -08/31/18 Patient's weight was noted to have been recorded at 75.3 kg today. When hospitalist asked nurse to re-check, the weight as 76 kg. Still this is a significant decrease in fluid weight since the weekend from 78.4 kg -will transition the diuretics to oral torsemide 60 mg daily and discontinue the retana as patient have [facility] service previously set targeted weight for retana removal -09/01/18 weight is 74.4 kg continue torsemide 60 mg daily as outpatient -cont Fluid restriction 1.5L, continue low sodium diet as outpatient -cont standing K 20 mEq tid po as outpatient repeat CXR on 08/26/18 "1. Cardiomegaly and radiographic evidence of mild congestive failure/fluid overload 2. Small bilateral pleural effusions right greater than left 3. 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 No acute process of the right femur. 2. Diffuse soft tissue edema versus cellulitis throughout the right thigh extending from the level of the right hip to the right knee. 3. Calcific trochanteric bursitis right hip. 4. No evidence for a drainable abscess or collection. - no signs of leg cellulitis -no acute hip pain at this time (4) A-fib: on Metoprolol, continue home dose coumadin is usually 2 mg daily INR is still 1.7 on 08/27/18 while on coumadin 3 mg daily coumadin 4 mg daily started on 08/27/18 INR remains 1.7 on 08/28/18 INR 2.2 on 08/30/18 INR 2.5 on 08/31/18, switch from coumadin 4 mg daily to 3.5 mg daily to avoid supratherapeutic INR discharge on coumadin 3 mg daily for ease of dosing, outpatient INR check as needed (5) GERD (gastroesophageal reflux disease): stable (6) Hypertension: stable overall continue Metoprolol DVT prophylaxis continue coumadin Discharge Diagnosis Right Sided heart failure (fluid overload), CKD stage 3, atrial fibrillation ( rate controlled) anticoagulated on coumadin, coronary artery disease Discharge Directions Patient being discharged to [facility]. Patient should continue with medication changes made in the hospital as Torsemide 60 mg daily, potassium chloride 20 meq TID (prescription of this dosing given only for 10 days), hydralazine 10 mg BID, coumadin 3 mg daily Patient should follow up with primary care doctor and have repeat labs for renal function, potassium levels, and INR checked in case medication changes needed to be made. The weight on discharge is 74.4 kilograms Follow up 09/04/2018 12:40 PM Camilo Randall MD [facility] 09/11/2018 3:00 PM Elliott Ludwig PA-C Cardiology, [facility] 09/21/2018 9:30 AM Ya Tan MD Nephrology [facility] 09/23/2018 2:00 PM Camilo Randall MD [facility] 11/02/2018 1:50 PM Ya Tan MD Nephrology [facility] Total Time Total Time Spent Total Time Spent (In Minutes): 40 minutes Total Time Includes: Examination of the Patient, Discharge Planning and Medication Reconciliation Discharge Plan Discharge Items Patient Disposition: Transfer Shelter [facility] Reason For Visit: VOLUME OVERLOAD Discharge Diagnosis: Right Sided heart failure (fluid overload), CKD stage 3, atrial fibrillation (rate controlled) anticoagulated on coumadin, coronary artery disease Condition: Good Discharge Goals: Improve disease control Activity: Resume your previous activity Non-emergency contact: Primary Care Provider and Machine Plug Shaper Call non-emergency contact if: you have any medication questions Diet: Low Sodium (2gm) Fluids: 1500ml (6 cups) Addtl Provider Instructions: Discharge Directions Patient being discharged to [facility]. Patient should continue with medication changes made in the hospital as Torsemide 60 mg daily, potassium chloride 20 meq TID (prescription of this dosing given only for 10 days), hydralazine 10 mg BID, coumadin 3 mg daily Patient should follow up with primary care doctor and have repeat labs for renal function, potassium levels, and INR checked in case medication changes needed to be made. The weight on discharge is 74.4 kilograms Follow up 09/04/2018 12:40 PM Camilo Randall MD [facility] 09/11/2018 3:00 PM Elliott Ludwig PA-C Cardiology, [facility] 09/21/2018 9:30 AM Ya Tan MD Nephrology [facility] 09/23/2018 2:00 PM Camilo Randall MD [facility] 11/02/2018 1:50 PM Ya Tan MD Nephrology [facility] Prescriptions: New hydralazine 10 mg Tablet 10 mg PO BID 30 Days Qty: 60 RF: 0 torsemide 20 mg Tablet 60 mg PO QAM 30 Days Qty: 90 RF: 0 warfarin [Coumadin] 3 mg Tablet 3 mg PO DAILY@1600 30 Days Qty: 30 RF: 0 potassium chloride [Klor-Con M20] 20 mEq Tablet,Er Particles/Crystals 20 meq PO TID 10 Days Qty: 30 RF: 0 Continue atorvastatin 80 mg tablet 80 mg PO QAM RF: 0 donepezil 5 mg tablet 5 mg PO QAM RF: 0 polyethylene glycol 3350 [Miralax] 17 gram Powder In Packet 17 g PO DAILY PRN (Reason: Constipation) RF: 0 aspirin [Aspir-81] 81 mg Tablet,Delayed Release (Dr/Ec) 81 mg PO 3XWK RF: 0 metoprolol tartrate 50 mg tablet 50 mg PO QAM RF: 0 ferrous sulfate 325 mg (65 mg iron) Tablet 325 mg PO QAM RF: 0 calcium carbonate-vitamin D3 [Caltrate 600 + D] 600 mg (1,500 mg)-800 unit Tablet,Chewable 1 tab PO QAM RF: 0 sennosides [Senokot] 8.6 mg tablet 8.6 mg PO HS Qty: 30 RF: 0 docusate sodium [Colace] 100 mg capsule 100 mg PO BID Qty: 60 RF: 0 Discontinued hydralazine 25 mg tablet 25 mg PO BID RF: 0 warfarin 2 mg tablet 2 mg PO DAILY RF: 0 furosemide 20 mg tablet 20 mg PO BID RF: 0 oxycodone 5 mg tablet 5 mg PO Q6H Qty: 14 RF: 0 Stand-Alone Forms: [facility] Discharge Orders: Discharge Order (Routine); Ordered 09/01/18 Ordered By: Rajinder Alford Skilled Items Patient informed of condition?: Yes DNR: No Discharge Level of Care: Skilled Communicable Disease: No Discharge Prognosis: Stable Admission Data Admit Date/Time: 08/22/18 16:03 Attending Provider: Rajinder Alford Admit Provider: Rajinder Mims Primary Care Provider: Camilo Randall Other Providers: Rajinder Mims ; Sean Wolff ; Darron Lozano ; Saravanan Gomez ; Navi Proctor ; Toni Pierce ; Elliott Ludwig ; Ana Luisa Horner ; Tish Mccoy ; Ya Tan ; Nigel Frye ; Vicky Talbot I ; Kaila Shane ; Luz Elena Tripathi Service: Telemetry
[2018-09-01] MEDS ORDERED: WARFARIN SOD 3 MG TAB PO SCH (16:00)
== END 2018-09-01 14:06 | DRG 291 ==
LOC: ED 11:41 → SUATTDRO 16:03 → 2S 16:03 → 2N 08-30 13:07

== ENCOUNTER 2018-10-15 16:26 | Inpatient (IN) ==
[2018-10-15 16:58] LABS: Basophils # (auto) 0.01 K/uL (0-0.2); Basophils % (auto) 0.2 %; Eosinophils # (auto) 0.25 K/uL (0-0.5); Eosinophils % (auto) 3.9 %; Hematocrit (blood only) 29.9 % (37-47); Hemoglobin 9.5 g/dL (12.0-16.0); Immature Granulocytes # (auto) 0.02 K/uL (0.00-0.02); Immature Granulocytes % (auto) 0.3 %; Lymphocytes # (auto) 1.23 K/uL (1.2-3.4); Lymphocytes % (auto) 19.4 %; Mean Corpuscular Hgb Conc 31.8 g/dL (32-36); Mean Corpuscular Volume 88.7 fL (80-100); Mean Platelet Volume 10.1 fL (7.4-10.4); Monocytes # (auto) 0.81 K/uL (0.11-0.59); Monocytes % (auto) 12.8 %; Neutrophils # (auto) 4.01 K/uL (1.4-6.5); Neutrophils % (auto) 63.4 %; Platelet Count 167 K/uL (130-400); RDW Coefficient of Variation 17.8 % (11.5-14.5); RDW Standard Deviation 57.3 fL (36.4-46.3); Red Blood Count 3.37 M/uL (4.2-5.4); White Blood Count 6.33 K/uL (4.8-10.8)
--- NOTE | 2018-10-15 16:58 | XRay Report ---
XR chest 1V portable CLINICAL HISTORY: Dyspnea dyspnea COMPARISON STUDY: 08/26/2018 FINDINGS: Stable cardiomegaly. Lungs are generally clear. Chronic atelectatic change left base. Bilat eral shoulder arthroplasties. Permanent bipolar cardiac pacemaker. IMPRESSION: Cardiomegaly. Chronic and postoperative change. No acute process. The above report was generated using voice recognition software. It may contain grammatical, syntax or spelling errors. Electronically signed by: Elliott Mauro M.D. 10/15/2018 4:57 PM
[2018-10-15 17:08] LABS: INR 2.5 (0.9-1.1); Partial Thromboplastin Ratio 1.4; Partial Thromboplastin Time 37.1 Seconds (21.0-31.0); Prothrombin Time 24.3 Seconds (9.0-12.0)
[2018-10-15 17:16] LABS: BUN Creatinine Ratio 18.9 (10-20); Calcium 8.4 mg/dl (8.5-10.1); Creatinine Clr Calc Pharmacy 10.9 ml/min; Est GFR (African American) 15.6; Est GFR (Non-African American) 13.4; Magnesium 2.2 mg/dl (1.8-2.4); Potassium 3.9 mmol/L (3.5-5.1)
[2018-10-15 17:29] LABS: Albumin Globulin Ratio 0.8 (0.9-2); Bilirubin,Total 0.3 mg/dl (0.2-1); Globulin 3.8 gm/dl (2.5-4.0); Total Protein 6.8 gm/dl (6.4-8.2); Troponin I 0.056 ng/ml (0-0.045)
--- NOTE | 2018-10-15 17:44 | CT Scan Report ---
CT head/brain wo con CT DOSE: 638.56 mGycm HISTORY: Mental status change confusion TECHNIQUE: Multiaxial CT images of the head were performed without the use of intravenous contrast. A dose lowering technique was utilized adhering to the principles of ALARA. Comparison: 06/13/2017 Findings: The paranasal sinuses and mastoid air cells are clear. The calvarium and skull base are int act. The ventricles and sulci are within normal limits. There is no mass, hematoma, midline shift, or acute infarct. Age-related atrophy and chronic small vessel change. Impression: No acute intracranial abnormality. Age-related change. The above report was generated using voice recognition software. It may contain grammatical, syntax or spelling errors. Electronically signed by: Elliott Mauro M.D. 10/15/2018 5:43 PM
[2018-10-15] MEDS ORDERED: FUROSEMIDE 40 MG/4 ML VIAL IV STA (18:14)
[2018-10-15 18:44] LABS: Appearance Urine Clear (Clear); Bacteria Urine Automated Negative (Negative); Bilirubin Urine Negative (Negative); Blood Urine Negative (Negative); Color Urine Yellow; Glucose Urine UA Negative (Negative); Ketones Urine Negative (Negative); Leukocyte Esterase Urine 3+ (Negative); Nitrite Urine Negative (Negative); Protein Urine Negative (Negative); RBC Urine Automated 0-4 /hpf (0-4); Specific Gravity Urine 1.013 (1.000-1.030); Urobilinogen Urine Negative (Negative); WBC Urine Automated >30 /hpf (0-5); pH Urine 6.5 (4.5-7.5)
[2018-10-15] MEDS ORDERED: cefTRIAXone SODIUM 1,000 MG/50 ML BAG IV STA (18:46)
--- NOTE | 2018-10-15 18:47 | Emergency Department Note ---
Entered by Willa Mondragon acting as a scribe for History of Present Illness General Chief complaint: Swelling/Edema to Extremity Source: patient Mode of arrival: EMS Limitations: no limitations History of Present Illness Provider complaint: Leg Swelling Onset (ago): day(s) 4 Location: lower extremity, left and right Severity: moderate Pain Consistency: + constant Associated symptoms: + denies other symptoms; no nausea/vomiting and no shortness of breath Treatments prior to arrival: none Patient is an 87 year old female presenting to the ED via EMS with leg swelling beginning x4 days ago. Leg swelling is bilateral and moderate in severity. She shares that she noticed an 8lb weight gain since onset. Patient resides at [facility] and notes she has had no problems since. Patient denies any SOB, cough, CP, nausea, vomiting, abd pain or any other complaints or concerns at this time. Patient has history of CKD, A fib, CAD, pacemaker, and stent. She notes that she has been taking all of her medications regularly. Patient lastly notes she did have blood work done this morning. According to the [facility] staff, patient has been more confused over the past few days and stating she is seeing her . Home Medications Home Medications Medication Instructions Recorded Confirmed Type aspirin [Aspir-81] 81 mg PO 3XWK 07/29/18 10/15/18 History atorvastatin 80 mg PO QAM 07/29/18 10/15/18 History donepezil 5 mg PO QAM 07/29/18 10/15/18 History metoprolol tartrate 50 mg PO QAM 07/29/18 10/15/18 History polyethylene glycol 3350 [Miralax] 17 g PO DAILY PRN 07/29/18 10/15/18 History docusate sodium [Colace] 100 mg PO BID #60 cap 08/13/18 10/15/18 Rx ferrous sulfate 325 mg PO QAM 08/13/18 10/15/18 History sennosides [Senokot] 8.6 mg PO HS #30 tab 08/13/18 10/15/18 Rx acetaminophen [Mapap 500 mg PO TID 10/15/18 10/15/18 History (acetaminophen)] acetaminophen [Tylenol] 650 mg PO Q4 PRN 10/15/18 10/15/18 History bisacodyl [Dulcolax (bisacodyl)] 10 mg OK DAILY PRN 10/15/18 10/15/18 History hydralazine 10 mg PO BID 10/15/18 10/15/18 History magnesium hydroxide [Milk of 30 ml PO UD PRN 10/15/18 10/15/18 History Magnesia] melatonin 5 mg PO HS PRN 10/15/18 10/15/18 History prjmsnlurnzi-covy-hdvsk acid 1 tab PO QAM 10/15/18 10/15/18 History [Cerovite Advanced Formula] ondansetron HCl [Zofran] 4 mg PO Q4 PRN 10/15/18 10/15/18 History oxycodone 5 mg PO Q6 PRN 10/15/18 10/15/18 History sulfamethoxazole-trimethoprim 1 tab PO BID 10/15/18 10/15/18 History torsemide 100 mg PO DAILY 10/15/18 10/15/18 History warfarin [Coumadin] 2 mg PO 6XWK 10/15/18 10/15/18 History warfarin [Coumadin] 4 mg PO WK 10/15/18 10/15/18 History Allergies Allergy/AdvReac Type Severity Reaction Status Date / Time lisinopril Allergy Mild OTHER Verified 10/15/18 16:56 adhesive Allergy Unknown . Verified 10/15/18 16:56 amiodarone Allergy Unknown . Verified 10/15/18 16:56 Past Med/Surg History Medical History A-fib CHF (congestive heart failure) (Chronic) GERD (gastroesophageal reflux disease) (Chronic) Hypertension (Chronic) CKD (chronic kidney disease) stage 3, GFR 30-59 ml/min (Chronic) Rotator cuff injury (Acute 12/23/13) Acute hip pain (Inactive) Surgical History Status post coronary artery stent placement (Chronic) Status post cardiac pacemaker procedure (Chronic) Status post cardiac catheterization (Chronic) Status post hysterectomy (Chronic) Status post total knee replacement (Chronic) Family History Other Cancer Social History Preferred Language: Romanian Communication Ability: Effective Telecommunications Repairer Required: No Beliefs That Will Affect Care: None marital status: / Current Living Situation: Personal Care Facility current occupational status: retired Other Information That Helps Us Care for You: No Feels Safe at Home: Yes Safety Concerns: Feels Safe At This Time Smoking Status: Never smoker Hx Alcohol Use: No Hx Substance Use: No Review of Systems See HPI for pertinent positives & negatives. and A total of 10 systems reviewed and were otherwise negative Physical Exam Vital Signs Vital Signs - 24 hr 10/15/18 16:30 10/15/18 16:36 10/15/18 18:33 Temperature 36.5 C Temperature Source Oral Sepsis Recent Fever Within 48 Hours No Sepsis Action Taken by Nursing No Action Required Pulse Rate 81 Pulse Rate [Apical] 70 Respiratory Rate 20 16 Respiratory Effort / Characteristics Non-Labored Respiratory Depth Normal Respiratory Pattern Regular Blood Pressure 124/99 Blood Pressure [Right Arm] 137/75 Blood Pressure Mean 107 Blood Pressure Mean [Right Arm] 95 Pulse Oximetry 100 100 97 Oxygen Delivery Method Room Air Room Air Room Air 10/15/18 20:23 10/15/18 21:27 10/15/18 22:04 Temperature Temperature Source Sepsis Recent Fever Within 48 Hours Sepsis Action Taken by Nursing Pulse Rate 62 Pulse Rate [Apical] 68 Respiratory Rate 20 20 Respiratory Effort / Characteristics Respiratory Depth Respiratory Pattern Blood Pressure 116/68 Blood Pressure [Right Arm] 115/56 L Blood Pressure Mean Blood Pressure Mean [Right Arm] 75 Pulse Oximetry 95 96 Oxygen Delivery Method Room Air Room Air Room Air GENERAL: Awake, alert to person, time, and place, well-appearing, in no distress HENT: Normocephalic, atraumatic. EYES: Normal conjunctiva. Sclera non-icteric. NECK: Supple. No nuchal rigidity. RESPIRATORY: Clear to auscultation. No wheezes. Diminished at bases. CARDIAC: Normal rate. Irregular rhythm. Extremities warm and well perfused. GI: Soft, non-distended. No tenderness to palpation. No rebound or guarding. MUSCULOSKELETAL: Atraumatic. Chest examination reveals no tenderness. There is no CVA tenderness to palpation. LOWER EXTREMITIES: Calves are equal size bilaterally and non-tender. Bilateral 2+ pitting edema NEURO: Normal sensorium. No sensory or motor deficits noted. No facial droop. SKIN: Warm and dry. No rash or jaundice noted. Course 162: Past medical records reviewed. The patient was evaluated in room B03B, and a complete history and physical examination were performed. 1808: Discussed case with [facility] Nephrology personal support worker. Recommend diuresis and admission. [facility]: Discussed plan for admission with patient. Patient is agreeable to plan. 1911[facility] 0: Discussed patient case with TARIQ Echols, who accepts patient for admission. Administered Medications Discontinued Medications Furosemide (Lasix) 40 mg IV NOW STA Stop: 10/15/18 18:15 Last Admin: 10/15/18 19:24 Dose: 40 mg Documented by: [id number] Ceftriaxone Sodium (Rocephin) 1,000 mg in 50 mls @ 100 mls/hr IV NOW STA Stop: 10/15/18 19:15 Last Infusion: 10/15/18 20:08 Dose: 0 mls/hr Documented by: [id number] Admin: 10/15/18 19:22 Dose: 100 mls/hr Documented by: [id number] Medical Decision Making Differential Diagnosis Differential diagnosis: Etiologies such as DVT, musculoskeletal, infection, joint effusion, trauma, lymphedema, idiopathic, CHF, as well as others were entertained. Medical Records Attestation: I reviewed the patient's medical records. Home Medications Current Medication List: was personally reviewed by me Laboratory Data Attestation: I reviewed the patient's lab results. Result diagrams: 10/15/18 16:50 10/15/18 16:50 Lab Results 10/15/18 10/15/18 10/15/18 Range/Units 16:50 16:50 16:50 WBC 6.33 (4.8-10.8) K/uL RBC 3.37 L (4.2-5.4) M/uL Hgb 9.5 L (12.0-16.0) g/dL Hct 29.9 L (37-47) % MCV 88.7 (80-100) fL MCH 28.2 (25-34) pg MCHC 31.8 L (32-36) g/dL RDW Std Deviation 57.3 H (36.4-46.3) fL RDW Coeff of Mykel 17.8 H (11.5-14.5) % Plt Count 167 (130-400) K/uL MPV 10.1 (7.4-10.4) fL Immature Gran % (Auto) 0.3 % Neut % (Auto) 63.4 % Lymph % (Auto) 19.4 % [place] % (Auto) 12.8 % Eos % (Auto) 3.9 % Baso % (Auto) 0.2 % Immature Gran # (Auto) 0.02 (0.00-0.02) K/uL Neut # (Auto) 4.01 (1.4-6.5) K/uL Lymph # (Auto) 1.23 (1.2-3.4) K/uL [place] # (Auto) 0.81 H (0.11-0.59) K/uL Eos # (Auto) 0.25 (0-0.5) K/uL Baso # (Auto) 0.01 (0-0.2) K/uL PT 24.3 H (9.0-12.0) Seconds INR 2.5 H (0.9-1.1) APTT 37.1 H (21.0-31.0) Seconds PTT Ratio 1.4 Sodium 136 (136-145) mmol/L Potassium 3.9 (3.5-5.1) mmol/L Chloride 99 (98-107) mmol/L Carbon Dioxide 28 (21-32) mmol/L Anion Gap 9.0 (3-11) BUN 57 H (7-18) mg/dl Creatinine 3.03 H (0.6-1.2) mg/dl Est Cr Clr Drug Dosing 10.9 ml/min Est GFR ( Amer) 15.6 Est GFR (Non-Af Amer) 13.4 BUN/Creatinine Ratio 18.9 (10-20) Glucose 103 H (70-99) mg/dl Calcium 8.4 L (8.5-10.1) mg/dl Magnesium 2.2 (1.8-2.4) mg/dl Total Bilirubin 0.3 (0.2-1) mg/dl AST 52 H (15-37) U/L ALT 40 (12-78) U/L Alkaline Phosphatase 129 H (45-117) U/L Troponin I 0.056 H* (0-0.045) ng/ml Total Protein 6.8 (6.4-8.2) gm/dl Albumin 3.0 L (3.4-5.0) gm/dl Globulin 3.8 (2.5-4.0) gm/dl Albumin/Globulin Ratio 0.8 L (0.9-2) Urine Color Urine Appearance (Clear) Urine pH (4.5-7.5) Ur Specific [place] (1.000-1.030) Urine Protein (Negative) Urine Glucose (UA) (Negative) Urine Ketones (Negative) Urine Blood (Negative) Urine Nitrite (Negative) Urine Bilirubin (Negative) Urine Urobilinogen (Negative) Ur Leukocyte Esterase (Negative) Urine WBC (Auto) (0-5) /hpf Urine RBC (Auto) (0-4) /hpf U Hyaline Cast (Auto) (0-5) /lpf U Epithel Cells (Auto) (0-5) /lpf Urine Bacteria (Auto) (Negative) 10/15/18 Range/Units 17:15 WBC (4.8-10.8) K/uL RBC (4.2-5.4) M/uL Hgb (12.0-16.0) g/dL Hct (37-47) % MCV (80-100) fL MCH (25-34) pg MCHC (32-36) g/dL RDW Std Deviation (36.4-46.3) fL RDW Coeff of Mykel (11.5-14.5) % Plt Count (130-400) K/uL MPV (7.4-10.4) fL Immature Gran % (Auto) % Neut % (Auto) % Lymph % (Auto) % [place] % (Auto) % Eos % (Auto) % Baso % (Auto) % Immature Gran # (Auto) (0.00-0.02) K/uL Neut # (Auto) (1.4-6.5) K/uL Lymph # (Auto) (1.2-3.4) K/uL [place] # (Auto) (0.11-0.59) K/uL Eos # (Auto) (0-0.5) K/uL Baso # (Auto) (0-0.2) K/uL PT (9.0-12.0) Seconds INR (0.9-1.1) APTT (21.0-31.0) Seconds PTT Ratio Sodium (136-145) mmol/L Potassium (3.5-5.1) mmol/L Chloride (98-107) mmol/L Carbon Dioxide (21-32) mmol/L Anion Gap (3-11) BUN (7-18) mg/dl Creatinine (0.6-1.2) mg/dl Est Cr Clr Drug Dosing ml/min Est GFR ( Amer) Est GFR (Non-Af Amer) BUN/Creatinine Ratio (10-20) Glucose (70-99) mg/dl Calcium (8.5-10.1) mg/dl Magnesium (1.8-2.4) mg/dl Total Bilirubin (0.2-1) mg/dl AST (15-37) U/L ALT (12-78) U/L Alkaline Phosphatase (45-117) U/L Troponin I (0-0.045) ng/ml Total Protein (6.4-8.2) gm/dl Albumin (3.4-5.0) gm/dl Globulin (2.5-4.0) gm/dl Albumin/Globulin Ratio (0.9-2) Urine Color Yellow Urine Appearance Clear (Clear) Urine pH 6.5 (4.5-7.5) Ur Specific [place] 1.013 (1.000-1.030) Urine Protein Negative (Negative) Urine Glucose (UA) Negative (Negative) Urine Ketones Negative (Negative) Urine Blood Negative (Negative) Urine Nitrite Negative (Negative) Urine Bilirubin Negative (Negative) Urine Urobilinogen Negative (Negative) Ur Leukocyte Esterase 3+ H (Negative) Urine WBC (Auto) >30 H (0-5) /hpf Urine RBC (Auto) 0-4 (0-4) /hpf U Hyaline Cast (Auto) 1-5 (0-5) /lpf U Epithel Cells (Auto) 10-20 H (0-5) /lpf Urine Bacteria (Auto) Negative (Negative) Imaging Data Radiologist's Impression: XR chest 1V portable CLINICAL HISTORY: Dyspnea dyspnea COMPARISON STUDY: 08/26/2018 FINDINGS: Stable cardiomegaly. Lungs are generally clear. Chronic atelectatic change left base. Bilateral shoulder arthroplasties. Permanent bipolar cardiac pacemaker. IMPRESSION: Cardiomegaly. Chronic and postoperative change. No acute process. The above report was generated using voice recognition software. It may contain grammatical, syntax or spelling errors. Electronically signed by: Elliott Mauro M.D. 10/15/2018 4:[address] head/brain wo con CT DOSE: 638.56 mGycm HISTORY: Mental status change confusion TECHNIQUE: Multiaxial CT images of the head were performed without the use of intravenous contrast. A dose lowering technique was utilized adhering to the principles of ALARA. Comparison: 06/13/2017 Findings: The paranasal sinuses and mastoid air cells are clear. The calvarium and skull base are intact. The ventricles and sulci are within normal limits. Th ere is no mass, hematoma, midline shift, or acute infarct. Age-related atrophy and chronic small vessel change. Impression: No acute intracranial abnormality. Age-related change. The above report was generated using voice recognition software. It may contain grammatical, syntax or spelling errors. Electronically signed by: Elliott Mauro M.D. 10/15/2018 5:43 PM ECG Data Attestation: I personally reviewed and interpreted this ECG as follows: Indication: other (edema) Rate (beats per minute): 99 Rhythm: other (ventricularly paced) Findings: + PVC Comparison ECG Date: from (08/22/18) Change: no significant change Blood Pressure Blood Pressure Findings: Normal blood pressure MDM Narrative Patient is an 87-year-old female with a history of CAD, CKD, heart failure, A. fib along with dementia presenting from her nursing facility today with report of increased swelling and edema of the lower extremities. Was admitted here in August with acute heart failure exacerbation. Has been maintained on Coumadin. She denies any other complaints or shortness of breath. States her birthday is coming up on Friday and really does not want to stay in the hospital. Doubt PE or DVT given anticoagulation and an INR of 2.5. Doubt cardiac etiologies but EKG and troponin completed. Basic labs are completed and shows no signs of acute anemia. Has been on torsemide per facility records. Not hypoxic in the chest x-ray without obvious signs of pulmonary edema. Hemoglobin stable. Did call the facility did state over the last 2 days having little bit more confusion and occasionally seeing her . Very pleasant here and does not seem acutely altered. Urinalysis does appear positive and given a dose of ceftriaxone. CT head completed but no focal deficits and I doubt this is CVA or meningitis. The CT is unremarkable. Chronic small troponin elevation actually less than previous. No significant liver function abnormalities noted. Kidney function does appear worse than normal with a creatinine of 3.03. Given this elevation with her need for increased diuresis have concerns about discharging her. Discussed with nephrology and plan for admission for monitored diuresis and improvement of her worsening kidney function. Given additional dose of Lasix in discussion with nephrology. [facility] hospitalist contacted. Impression & Plan Volume overload, Acute kidney injury, Acute UTI Discharge Plan Visit Data Chief Complaint: Swelling/Edema to Extremity ED Provider: Stephon Goodman Discharge Problem: Volume overload, Acute kidney injury, Acute UTI Discharge Instructions Interventions: ED Discharge Assessment Last Done: 10/15/18 22:04 Forms Stand Alone Forms: [employer] [facility] [employer] Prescriptions Prescriptions: No Action atorvastatin 80 mg tablet 80 mg PO QAM RF: 0 donepezil 5 mg tablet 5 mg PO QAM RF: 0 polyethylene glycol 3350 [Miralax] 17 gram Powder In Packet 17 g PO DAILY PRN (Reason: Constipation) RF: 0 aspirin [Aspir-81] 81 mg Tablet,Delayed Release (Dr/Ec) 81 mg PO 3XWK RF: 0 metoprolol tartrate 50 mg tablet 50 mg PO QAM RF: 0 ferrous sulfate 325 mg (65 mg iron) Tablet 325 mg PO QAM RF: 0 sennosides [Senokot] 8.6 mg tablet 8.6 mg PO HS Qty: 30 RF: 0 docusate sodium [Colace] 100 mg capsule 100 mg PO BID Qty: 60 RF: 0 hydralazine 25 mg tablet 10 mg PO BID RF: 0 warfarin [Coumadin] 4 mg Tablet 4 mg PO WK RF: 0 torsemide 100 mg Tablet 100 mg PO DAILY RF: 0 warfarin [Coumadin] 2 mg Tablet 2 mg PO 6XWK RF: 0 acetaminophen [Mapap (acetaminophen)] 500 mg Capsule 500 mg PO TID RF: 0 Cerovite Advanced Formula 18-400 mg-mcg Tablet 1 tab PO QAM RF: 0 acetaminophen [Tylenol] 325 mg Tablet 650 mg PO Q4 PRN (Reason: Fever Or Pain) RF: 0 ondansetron HCl [Zofran] 4 mg Tablet 4 mg PO Q4 PRN (Reason: Nausea And Vomiting) RF: 0 sulfamethoxazole-trimethoprim 800-160 mg tablet 1 tab PO BID RF: 0 magnesium hydroxide [Milk of Magnesia] 400 mg/5 mL Suspension 30 ml PO UD PRN (Reason: Constipation) RF: 0 bisacodyl [Dulcolax (bisacodyl)] 10 mg Suppository 10 mg OK DAILY PRN (Reason: Constipation) RF: 0 melatonin 5 mg Tablet 5 mg PO HS PRN (Reason: Sleep) RF: 0 oxycodone 5 mg Tablet, Oral Only 5 mg PO Q6 PRN (Reason: MOD-SEVERE PAIN) RF: 0 Referrals Referrals: Camilo Randall [Primary Care Provider] - Discharge Problem: Volume overload Qualifiers: Hypervolemia type: unspecified Qualified Code(s): E87.70 - Fluid overload, unspecified The scribe's documentation has been prepared under my direction and personally reviewed by me in its entirety. I confirm that the note above accurately reflects all work, treatment, procedures, and medical decision making performed by me.
--- NOTE | 2018-10-15 21:14 | History & Physical Report ---
Date of Service October 15, 2018 Assessment & Plan (1) Encephalopathy: Secondary to complicated UTI No sepsis Improved mentation after initial intervention at the ER Weight gain/fluid retention ? 2 to ARF on CKD chronic diastolic heart failure (EF 55-60%, TTE 2019), patient with signs of vo lume overload CAD status post stent A. fib/symptomatic bradycardia status post PPM on Coumadin, paced rhythm, INR therapeutic Asymptomatic troponin elevation hypertension, BP on the lower side PVD chronic anemia secondary to CKD hemoglobin at baseline Medical telemetry for troponin elevation Follow urine cultures, IV Ceftriaxone Follow renal function, renal ultrasound if without improvement Lasix albumin 1 dose in a.m. Nephrology consult RE ARF on CRI Follow troponin DVT prophylaxis. Coumadin INR between 2 and 3 Full code Patient's daughter requesting updates from providers. Ms. Baylee Patino, contact #[phone]. History of Present Illness Chief Complaint: Confusion; possible weight gain, leg swelling as per records Primary Care Provider: Camilo Randall History obtained from patient, family, and records. Medical history significant for chronic diastolic heart failure (EF 55-60%, TTE 2019), CAD status post stent, A. 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 Today patient noted increased urinary frequency symptoms. Patient noted to be more confused than usual by family and [facility] staff. Bilateral leg swelling, weight gain of 8 pounds in the last week 151 lbs (10/08/18) to 159 lbs today as per [facility] staff. Patient denies chest pain, SOB, abdominal distention/flank pain; legs unchanged as per family. Patient sent to the ER for evaluation. Receive IV Ceftriaxone and Lasix at the ER. Patient mentation currently improved as per patient family. Medical History as above Surgical History : Knee surgery, carpal tunnel surgery, PPM, shoulder surgery, breast reduction, cataract surgery upper eyelid surgery, back surgery, LEIDA, BSO Family History : Hypertension, melanoma, ankylosing spondylitis Personal/Social history : Non-smoker, no EtOH intake, retired [employer], [facility] assisted living resident Allergies Allergy/AdvReac Type Severity Reaction Status Date / Time lisinopril Allergy Mild OTHER Verified 10/15/18 16:56 adhesive Allergy Unknown . Verified 10/15/18 16:56 amiodarone Allergy Unknown . Verified 10/15/18 16:56 Home Medications Home Medications Medication Instructions Recorded Confirmed Type aspirin [Aspir-81] 81 mg PO 3XWK 07/29/18 10/15/18 History atorvastatin 80 mg PO QAM 07/29/18 10/15/18 History donepezil 5 mg PO QAM 07/29/18 10/15/18 History metoprolol tartrate 50 mg PO QAM 07/29/18 10/15/18 History polyethylene glycol 3350 [Miralax] 17 g PO DAILY PRN 07/29/18 10/15/18 History docusate sodium [Colace] 100 mg PO BID #60 cap 08/13/18 10/15/18 Rx ferrous sulfate 325 mg PO QAM 08/13/18 10/15/18 History sennosides [Senokot] 8.6 mg PO HS #30 tab 08/13/18 10/15/18 Rx acetaminophen [Mapap 500 mg PO TID 10/15/18 10/15/18 History (acetaminophen)] acetaminophen [Tylenol] 650 mg PO Q4 PRN 10/15/18 10/15/18 History bisacodyl [Dulcolax (bisacodyl)] 10 mg [place] DAILY PRN 10/15/18 10/15/18 History hydralazine 10 mg PO BID 10/15/18 10/15/18 History magnesium hydroxide [Milk of 30 ml PO UD PRN 10/15/18 10/15/18 History Magnesia] melatonin 5 mg PO HS PRN 10/15/18 10/15/18 History olutpordzxpp-htes-vigxz acid 1 tab PO QAM 10/15/18 10/15/18 History [Cerovite Advanced Formula] ondansetron HCl [Zofran] 4 mg PO Q4 PRN 10/15/18 10/15/18 History oxycodone 5 mg PO Q6 PRN 10/15/18 10/15/18 History sulfamethoxazole-trimethoprim 1 tab PO BID 10/15/18 10/15/18 History torsemide 100 mg PO DAILY 10/15/18 10/15/18 History warfarin [Coumadin] 2 mg PO 6XWK 10/15/18 10/15/18 History warfarin [Coumadin] 4 mg PO WK 10/15/18 10/15/18 History Past Med/Surg History Medical History A-fib CHF (congestive heart failure) (Chronic) GERD (gastroesophageal reflux disease) (Chronic) Hypertension (Chronic) CKD (chronic kidney disease) stage 3, GFR 30-59 ml/min (Chronic) Rotator cuff injury (Acute 12/23/13) Acute hip pain (Inactive) Surgical History Status post coronary artery stent placement (Chronic) Status post cardiac pacemaker procedure (Chronic) Status post cardiac catheterization (Chronic) Status post hysterectomy (Chronic) Status post total knee replacement (Chronic) Family History Other Cancer Social History Preferred Language: Yakut Communication Ability: Effective 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 Beliefs That Will Affect Care: None marital status: / Current Living Situation: Personal Care Facility current occupational status: retired Other Information That Helps Us Care for You: No Feels Safe at Home: Yes Safety Concerns: Feels Safe At This Time Smoking Status: Never smoker Hx Alcohol Use: No Hx Substance Use: No Review of Systems As per HPI, all 10 systems reviewed, all other ROS negative Physical Exam Vital Signs (Past 24 Hours): Last Vital Signs Temp 36.5 C 10/15/18 16:30 Pulse 68 10/15/18 20:23 Resp 20 10/15/18 20:23 BP 115/56 L 10/15/18 20:23 Pulse Ox 95 10/15/18 20:23 Physical Exam: GENERAL: Comfortable, eating, slightly hard of hearing, no respiratory distress SKIN: Pallor , warm HEENT: Pale palpebral conjunctivae, no ptosis, dry buccal mucosa NECK : Supple, no tenderness CHEST : CTA, no tenderness HEART : RRR, murmur ABDOMEN: Some distention, nontender EXTREMITIES : mario LE swelling, no LE tenderness, no other conspicuous deformities noted NEUROLOGIC : Coherent, no facial asymmetry, mild hearing impairment, gait and stance not assessed Results & Data Laboratory Results Laboratory Results WBC 6.33 K/uL (4.8-10.8) 10/15/18 16:50 RBC 3.37 M/uL (4.2-5.4) L 10/15/18 16:50 Hgb 9.5 g/dL (12.0-16.0) L 10/15/18 16:50 Hct 29.9 % (37-47) L 10/15/18 16:50 MCV 88.7 fL (80-100) 10/15/18 16:50 MCH 28.2 pg (25-34) 10/15/18 16:50 MCHC 31.8 g/dL (32-36) L 10/15/18 16:50 RDW Std Deviation 57.3 fL (36.4-46.3) H 10/15/18 16:50 RDW Coeff of Mykel 17.8 % (11.5-14.5) H 10/15/18 16:50 Plt Count 167 K/uL (130-400) 10/15/18 16:50 MPV 10.1 fL (7.4-10.4) 10/15/18 16:50 Immature Gran % (Auto) 0.3 % 10/15/18 16:50 Neut % (Auto) 63.4 % 10/15/18 16:50 Lymph % (Auto) 19.4 % 10/15/18 16:50 [place] % (Auto) 12.8 % 10/15/18 16:50 Eos % (Auto) 3.9 % 10/15/18 16:50 Baso % (Auto) 0.2 % 10/15/18 16:50 Immature Gran # (Auto) 0.02 K/uL (0.00-0.02) 10/15/18 16:50 Neut # (Auto) 4.01 K/uL (1.4-6.5) 10/15/18 16:50 Lymph # (Auto) 1.23 K/uL (1.2-3.4) 10/15/18 16:50 [place] # (Auto) 0.81 K/uL (0.11-0.59) H 10/15/18 16:50 Eos # (Auto) 0.25 K/uL (0-0.5) 10/15/18 16:50 Baso # (Auto) 0.01 K/uL (0-0.2) 10/15/18 16:50 PT 24.3 Seconds (9.0-12.0) H 10/15/18 16:50 INR 2.5 (0.9-1.1) H 10/15/18 16:50 APTT 37.1 Seconds (21.0-31.0) H 10/15/18 16:50 PTT Ratio 1.4 10/15/18 16:50 Sodium 136 mmol/L (136-145) 10/15/18 16:50 Potassium 3.9 mmol/L (3.5-5.1) 10/15/18 16:50 Chloride 99 mmol/L (98-107) 10/15/18 16:50 Carbon Dioxide 28 mmol/L (21-32) 10/15/18 16:50 Anion Gap 9.0 (3-11) 10/15/18 16:50 BUN 57 mg/dl (7-18) H 10/15/18 16:50 Creatinine 3.03 mg/dl (0.6-1.2) H 10/15/18 16:50 Est Cr Clr Drug Dosing 10.9 ml/min 10/15/18 16:50 Est GFR ( Amer) 15.6 10/15/18 16:50 Est GFR (Non-Af Amer) 13.4 10/15/18 16:50 BUN/Creatinine Ratio 18.9 (10-20) 10/15/18 16:50 Glucose 103 mg/dl (70-99) H 10/15/18 16:50 Calcium 8.4 mg/dl (8.5-10.1) L 10/15/18 16:50 Magnesium 2.2 mg/dl (1.8-2.4) 10/15/18 16:50 Total Bilirubin 0.3 mg/dl (0.2-1) 10/15/18 16:50 AST 52 U/L (15-37) H 10/15/18 16:50 ALT 40 U/L (12-78) 10/15/18 16:50 Alkaline Phosphatase 129 U/L (45-117) H 10/15/18 16:50 Troponin I 0.056 ng/ml (0-0.045) H* 10/15/18 16:50 Total Protein 6.8 gm/dl (6.4-8.2) 10/15/18 16:50 Albumin 3.0 gm/dl (3.4-5.0) L 10/15/18 16:50 Globulin 3.8 gm/dl (2.5-4.0) 10/15/18 16:50 Albumin/Globulin Ratio 0.8 (0.9-2) L 10/15/18 16:50 Urine Color Yellow 10/15/18 17:15 Urine Appearance Clear (Clear) 10/15/18 17:15 Urine pH 6.5 (4.5-7.5) 10/15/18 17:15 Ur Specific [place] 1.013 (1.000-1.030) 10/15/18 17:15 Urine Protein Negative (Negative) 10/15/18 17:15 Urine Glucose (UA) Negative (Negative) 10/15/18 17:15 Urine Ketones Negative (Negative) 10/15/18 17:15 Urine Blood Negative (Negative) 10/15/18 17:15 Urine Nitrite Negative (Negative) 10/15/18 17:15 Urine Bilirubin Negative (Negative) 10/15/18 17:15 Urine Urobilinogen Negative (Negative) 10/15/18 17:15 Ur Leukocyte Esterase 3+ (Negative) H 10/15/18 17:15 Urine WBC (Auto) >30 /hpf (0-5) H 10/15/18 17:15 Urine RBC (Auto) 0-4 /hpf (0-4) 10/15/18 17:15 U Hyaline Cast (Auto) 1-5 /lpf (0-5) 10/15/18 17:15 U Epithel Cells (Auto) 10-20 /lpf (0-5) H 10/15/18 17:15 Urine Bacteria (Auto) Negative (Negative) 10/15/18 17:15 Diagnostic Findings Chest x-ray showed cardiomegaly CT head: Age-related change, no acute pathology EKG as per my interpretation : Rate 100, paced rhythm
[2018-10-15] MEDS ORDERED: POLYETHYLENE (MIRALAX) 17 GM PACK PO PRN (22:30)
[2018-10-15] MEDS ORDERED: OXYCODONE HCL IR 5 MG TAB (IMMEDIATE RELEASE) PO PRN (22:30)
[2018-10-15] MEDS ORDERED: ACETAMINOPHEN 325 MG TAB PO PRN (22:30)
[2018-10-15] MEDS ORDERED: TRAMADOL HCL 50 MG TABLET PO PRN (22:30)
[2018-10-15] MEDS ORDERED: NITROGLYCERIN SL 0.4 MG/TAB TAB SL PRN (22:30)
[2018-10-15] MEDS ORDERED: PROCHLORPERAZINE 5 MG in SYRINGE 4 ML IV PRN (22:30)
[2018-10-16 00:20] LABS: T4 Free Thyroxine 1.18 ng/dl (0.8-1.6)
[2018-10-16] MEDS: HydrALAZINE 10 MG TAB PO SCH ×2 (00:24→07:57)
[2018-10-16] MEDS ORDERED: FUROSEMIDE 40 MG in SYRINGE 0 ML IV STA (01:07)
[2018-10-16] MEDS ORDERED: ALBUMIN 25% 50 ML with FUROSEMIDE 40 MG IV ONE (01:30)
[2018-10-16 07:23] LABS: Eosinophils # (auto) 0.29 K/uL (0-0.5); Eosinophils % (auto) 4.3 %; Hematocrit (blood only) 28.6 % (37-47); Hemoglobin 8.9 g/dL (12.0-16.0); Immature Granulocytes # (auto) 0.01 K/uL (0.00-0.02); Immature Granulocytes % (auto) 0.1 %; Lymphocytes # (auto) 1.12 K/uL (1.2-3.4); Lymphocytes % (auto) 16.7 %; Mean Corpuscular Hgb Conc 31.1 g/dL (32-36); Mean Corpuscular Volume 88.3 fL (80-100); Mean Platelet Volume 9.4 fL (7.4-10.4); Monocytes # (auto) 0.76 K/uL (0.11-0.59); Monocytes % (auto) 11.3 %; Neutrophils # (auto) 4.52 K/uL (1.4-6.5); Neutrophils % (auto) 67.6 %; Platelet Count 155 K/uL (130-400); RDW Coefficient of Variation 17.7 % (11.5-14.5); RDW Standard Deviation 57.4 fL (36.4-46.3); Red Blood Count 3.24 M/uL (4.2-5.4)
[2018-10-16 07:33] LABS: INR 2.2 (0.9-1.1); Prothrombin Time 20.9 Seconds (9.0-12.0)
[2018-10-16 07:41] LABS: Acanthocytes 1+; Ovalocytes 1+
[2018-10-16] MEDS: FERROUS SULFATE 325 MG TAB PO SCH (07:58)
[2018-10-16] MEDS: DONEPEZIL HCL 5 MG TAB PO SCH (07:58)
[2018-10-16] MEDS: METOPROLOL TARTRATE 50 MG TAB PO SCH ×2 (07:58→20:43)
[2018-10-16 07:59] LABS: BUN Creatinine Ratio 20.2 (10-20); Calcium 8.9 mg/dl (8.5-10.1); Creatinine Clr Calc Pharmacy 10.9 ml/min; Est GFR (African American) 15.7; Est GFR (Non-African American) 13.5; Potassium 3.5 mmol/L (3.5-5.1)
[2018-10-16] MEDS: ATORVASTATIN 40 MG TAB PO SCH (07:59)
[2018-10-16] MEDS: CEROVITE ADV FORMULA TAB PO SCH (07:59)
[2018-10-16] MEDS ORDERED: ALBUMIN 25% 50 ML with FUROSEMIDE 80 MG IV ONE (08:00)
[2018-10-16] MEDS ORDERED: ASPIRIN 81 MG ECTAB PO SCH (09:00)
--- NOTE | 2018-10-16 17:41 | Hospitalist Progress Note ---
Date of Service October 16, 2018 Assessment & Plan (1) Acute diastolic CHF (congestive heart failure): Diuresis, daily weights, salt rand fluid restriction. Cont home cardiac meds including ASA, Lipitor, Lopressor. (2) Encephalopathy: metabolic encephalopathy-resolved. (3) SEUN (acute kidney injury): Noted recent Bactrim use as outpatient, fluid overload on exam his clinical picture consistent with acute congestive heart failure. Continue daily standing weights, continue IV diuretics, continue 2 g daily sodium restriction, continue fluid restriction per nephrology. (4) Acute UTI: Rocephin empirically pending urine cultures. (5) CAD (coronary artery disease): Mildly elevated troponin 0 0.056 which is flat on repeat without rise likely secondary to demand ischemia in setting of fluid overload with severe tricuspid regurgitation, as seen on echocardiogram in August 2018. Ejection fraction is known to be normal with EF of 55-60%. She is asymptomatic without chest pain or difficulty breathing today. EKG reveals V paced rhythm with a rate of 99 on admission. No further inpatient cardiac workup at this time. (6) CKD (chronic kidney disease) stage 4, GFR 15-29 ml/min: (7) Atrial fibrillation: On coumadin, therapeutic. Rate controlled with Lopressor. (8) DVT prophylaxis: Coumadin Full Code Dispo-cont telemetry Jeannette Lovett DO [facility] Hospitalist Subjective 88 yo F with CAD and severe TR, also with a h/o recurrent UTIs in the past, presents with 8lb weight gain and LE swelling over the past few days. She is improved today and feels well. She denies any chest pain or shortness of breath and feels her leg swelling has improved. She is mentating without issue. Physical Exam Vital Signs (Past 24 Hours): Last Vital Signs Temp 36.8 C 10/16/18 15:52 Pulse 65 10/16/18 11:44 Resp 20 10/16/18 15:52 BP 118/76 10/16/18 15:52 Pulse Ox 95 10/16/18 15:52 CONSTITUTIONAL: WNWD, vitals as above, generally well-appearing EYES: normal conjuctivae, no scleral icterus ENT: MMM RESPIRATORY: clear to auscultation bilaterally, no crackles, rales or wheezes, normal respiratory effort CARDIOVASCULAR: regular rate and rhythm, 3/6 SUSSY, no gallops or rubs, no JVD, no peripheral edema GASTROINTESTINAL: soft, nontender, nondistended MUSCULOSKELETAL: strength 5/5 throughout, head is normocephalic and atraumatic SKIN: warm and dry NEUROLOGIC: CN 2-12 grossly intact, no sensory deficit, normal cognition, normal speech, no gross focal deficits. PSYCHIATRIC: alert cooperative and oriented to person, place and time. Results & Data Laboratory Results Short CBC 10/16/18 Range/Units 07:08 WBC 6.70 (4.8-10.8) K/uL Hgb 8.9 L (12.0-16.0) g/dL Hct 28.6 L (37-47) % Plt Count 155 (130-400) K/uL BMP 10/16/18 07:08 Sodium 136 Potassium 3.5 Chloride 100 Carbon Dioxide 29 BUN 61 H Creatinine 3.01 H Glucose 113 H Calcium 8.9 Cardiac Enzymes 10/16/18 Range/Units 01:20 Troponin I 0.056 H* (0-0.045) ng/ml Urine 10/15/18 Range/Units 17:15 Urine Color Yellow Urine Appearance Clear (Clear) Urine pH 6.5 (4.5-7.5) Ur Specific [place] 1.013 (1.000-1.030) Urine Protein Negative (Negative) Urine Glucose (UA) Negative (Negative) Medications Administered Current Inpatient Medications Acetaminophen (Tylenol) 650 mg PO Q4 PRN PRN Reason: Fever Or Pain Stop: 11/14/18 22:29 Aspirin (Ecotrin Ectab) 81 mg PO [id number] [facility] Stop: 11/15/18 08:59 Last Admin: 10/16/18 07:58 Dose: 81 mg Documented by: Atorvastatin Calcium (Lipitor) 80 mg PO QAM [facility] Stop: 11/15/18 08:59 Last Admin: 10/16/18 07:59 Dose: 80 mg Documented by: Donepezil HCl (Aricept) 5 mg PO QAM [facility] Stop: 11/15/18 08:59 Last Admin: 10/16/18 07:58 Dose: 5 mg Documented by: Ferrous Sulfate (Feosol) 325 mg PO DAILY [facility] Stop: 11/15/18 08:59 Last Admin: 10/16/18 07:58 Dose: 325 mg Documented by: Hydralazine HCl (Apresoline) 10 mg PO BID [facility] Stop: 11/14/18 22:44 Last Admin: 10/16/18 07:57 Dose: 10 mg Documented by: Prochlorperazine 5 mg/ Syringe 5 mls @ 5 mls/min IV Q6H PRN PRN Reason: Nausea And Vomiting Stop: 11/14/18 22:29 Ceftriaxone Sodium 1,000 mg/ (Dextrose) 50 mls @ 100 mls/hr IV Q24H [facility]; Protocol Stop: 10/21/18 17:59 Last Admin: 10/16/18 17:28 Dose: 100 mls/hr Documented by: Metoprolol Tartrate (Lopressor) 25 mg PO BID [facility] Stop: 11/15/18 08:59 Last Admin: 10/16/18 07:58 Dose: 25 mg Documented by: Multivitamins/Minerals (Multivitamin W/ Minerals Tab) 1 tab PO QAM [facility] Stop: 11/15/18 08:59 Last Admin: 10/16/18 07:59 Dose: 1 tab Documented by: Nitroglycerin (Nitrostat) 0.4 mg SL UD PRN PRN Reason: Chest Pain Stop: 11/14/18 22:29 Oxycodone HCl (Roxicodone Immediate Rel) 5 mg PO Q6H PRN PRN Reason: MOD-SEVERE PAIN Stop: 10/29/18 22:29 Polyethylene Glycol (Miralax Powder Packet) 17 gm PO DAILY PRN PRN Reason: Constipation Stop: 11/14/18 22:29 Sennosides (Senokot) 8.6 mg PO HS [facility] Stop: 11/15/18 20:59 Tramadol HCl (Ultram) 25 mg PO Q4H PRN PRN Reason: Pain Stop: 11/14/18 22:29
[2018-10-16] MEDS ORDERED: cefTRIAXone SODIUM 1,000 MG in DEXTROSE 5% 50 ML IV SCH (18:00)
--- NOTE | 2018-10-16 18:01 | Nephrology Consultation ---
Date of Consultation October 16, 2018 Assessment & Plan (1) Acute on chronic renal failure: baseline creatinine as of mid Sep had been low - mid 2's; creat 3.0 on presentation. I did intensify her diuresis on 09/21 whcih may have had a role; also had courses of bactrim; also ill. No record of outpt wts just reports (but wts can be challenging dependign on how taken/recorded); also recurrent + urine cxs/ treatments for uti -some creat elevation may be d/t bactrim therapy -daily bmp -renal u/s if not improved by tomorrow -bladder scan prn -diuretics as below -will call and update pt daughter Baylee per pt request Present on Admission?: Yes (2) Recurrent UTI: -challenging situation to diagnose >> has had repeated courses of abtx past month which do not clear infection and may worsen renal function -in past month as outpt has had e coli reyes se, enterococcus (most recent), and multiple james + on urine cxs >> not clear to me that we can get a clean specimen in this pt or that we can treat for UTI based on sx of confusion in pt w/ dementia; need to rework OP urine testing; extra challenging b/c of dementia and of obligate diuretics -for now cont ceftriaxone since she is ill/ in house -f/u OP urine cx sensi's -recommend estrogen cream intravaginal 2 x weekly Present on Admission?: Yes (3) CHF (congestive heart failure): reported 9 lb wt gain though I have no record of her wts. her wts in clinic were better than at hospital d/c last month. -was on torsemide 100 mg daily prior to admission since 09/21 and had been tolerating as of 10/01 -now will put her on lasix IV 40 mg tid and follow - one dose tonight then tid lasix IV starting 0600, noon, 1800 -look to resume torsemide likely about 60 mg daily to start when ready for po diuretics -daily bmp -needs daily STANDING wt when able - so ordered -recommend teds/compression wraps/ leg elevation -ordered less than 2 gm daily sodium -ordered 1.8L fluid limit for now and would tighten when less concern for uti to 1.5L Present on Admission?: Yes History of Present Illness Requesting Physician: Dr Vazquez Attending Physician: Jeannette Lovett DO History of Present Illness 87 y/o F sent from OR yesterday evenign w/ concern for increasing wt gain/ leg swelling whom I'm asked to see for SEUN on CKD. PMH includes CKD 4 baseline creatinine low 2's, solitary kidney after remote nephrectomy d/t kidney stones, CAD, a fib; TIA, chronic shoulder pain s/p arthroplasties BL, spritn 2018 foot fracture; anemai of ckd. Admitted here last month for volume overload. She was 85.5 on presenation and down to 74.4 kg by discharge on 09/01/18. she is 69 kg today on built in bedscale; she was 69.1 kg on standing scale in clinic on 10/01 and 09/25 as outpatient. Her creatinine had been in low mid 2's at [facility] d/c last month and 2.2 on 10/01 is now 3. on 09/22 I had increased her torsemide from 60 mg daily to 100 mg daily. She was started on bactrim on 10/15 and had been started on that earlier in month as well for 6 doses. she has had 3 uti since [facility] d/c per her daughter, of which I see 2 documented in epic. not on estrogen cream. She follows w/ me in CKD clinic- last seen 09/21 when she had high k treated medically. CXR is clear; she is on RA. on presentation last evening she had lasix 40 mg IV x 1 and also ahd albumin w/ 40 mg lasix IV x 1 this am. she does not have a retana so I/O hard to measure. Allergies Allergy/AdvReac Type Severity Reaction Status Date / Time lisinopril Allergy Mild OTHER Verified 10/15/18 16:56 adhesive Allergy Unknown . Verified 10/15/18 16:56 amiodarone Allergy Unknown . Verified 10/15/18 16:56 Home Medications Home Medications Medication Instructions Recorded Confirmed Type aspirin [Aspir-81] 81 mg PO 3XWK 07/29/18 10/15/18 History atorvastatin 80 mg PO QAM 07/29/18 10/15/18 History donepezil 5 mg PO QAM 07/29/18 10/15/18 History metoprolol tartrate 50 mg PO QAM 07/29/18 10/15/18 History polyethylene glycol 3350 [Miralax] 17 g PO DAILY PRN 07/29/18 10/15/18 History docusate sodium [Colace] 100 mg PO BID #60 cap 08/13/18 10/15/18 Rx ferrous sulfate 325 mg PO QAM 08/13/18 10/15/18 History sennosides [Senokot] 8.6 mg PO HS #30 tab 08/13/18 10/15/18 Rx acetaminophen [Mapap 500 mg PO TID 10/15/18 10/15/18 History (acetaminophen)] acetaminophen [Tylenol] 650 mg PO Q4 PRN 10/15/18 10/15/18 History bisacodyl [Dulcolax (bisacodyl)] 10 mg [place] DAILY PRN 10/15/18 10/15/18 History hydralazine 10 mg PO BID 10/15/18 10/15/18 History magnesium hydroxide [Milk of 30 ml PO UD PRN 10/15/18 10/15/18 History Magnesia] melatonin 5 mg PO HS PRN 10/15/18 10/15/18 History yqeeyxcydgib-hzmi-gcvni acid 1 tab PO QAM 10/15/18 10/15/18 History [Cerovite Advanced Formula] ondansetron HCl [Zofran] 4 mg PO Q4 PRN 10/15/18 10/15/18 History oxycodone 5 mg PO Q6 PRN 10/15/18 10/15/18 History sulfamethoxazole-trimethoprim 1 tab PO BID 10/15/18 10/15/18 History torsemide 100 mg PO DAILY 10/15/18 10/15/18 History warfarin [Coumadin] 2 mg PO 6XWK 10/15/18 10/15/18 History warfarin [Coumadin] 4 mg PO WK 10/15/18 10/15/18 History Patient History Medical History A-fib CHF (congestive heart failure) (Chronic) GERD (gastroesophageal reflux disease) (Chronic) Hypertension (Chronic) CKD (chronic kidney disease) stage 3, GFR 30-59 ml/min (Chronic) Rotator cuff injury (Acute 12/23/13) Acute hip pain (Inactive) Surgical History Status post coronary artery stent placement (Chronic) Status post cardiac pacemaker procedure (Chronic) Status post cardiac catheterization (Chronic) Status post hysterectomy (Chronic) Status post total knee replacement (Chronic) Family History Other Cancer Social History Communication Ability: Effective Beliefs That Will Affect Care: None marital status: / Current Living Situation: Personal Care Facility current occupational status: retired Other Information That Helps Us Care for You: No Feels Safe at Home: Yes Safety Concerns: Feels Safe At This Time Smoking Status: Never smoker Hx Alcohol Use: No Hx Substance Use: No Review of Systems Constitutional: + fatigue and + weakness; no fever and no body aches Eyes: no worsening vision Ear, Nose, Mouth, Throat: + dry mouth Respiratory: + dyspnea and + dyspnea on exertion; no cough Cardiovascular: + dyspnea on exertion, + orthopnea and + edema; no palpitations Gastrointestinal: no abdominal pain, no early satiety, no nausea, no vomiting and no change in bowel habits Genitourinary (Female): + urinary frequency, + urinary urgency and + urinary inc ontinence; no dysuria Musculoskeletal: + swelling, + stiffness and + muscle weakness Integumentary: no rash and no non-healing lesions Neurologic: + generalized weakness, + confusion and + memory loss; no paresthesia Psychiatric: + behavioral changes Endocrine: + fatigue Hematologic / Lymphatic: no easy bleeding Physical Exam Vital Signs (Past 24 Hours): Last Vital Signs Temp 36.8 C 10/16/18 15:52 Pulse 65 10/16/18 11:44 Resp 20 10/16/18 15:52 BP 118/76 10/16/18 15:52 Pulse Ox 95 10/16/18 15:52 Constitutional: well developed, well nourished, + frail appearing and cooperative; no acute distress on RA; some confusion/sight limitations but oriented/appropriate Eyes: difficult for her to see buttons on remote ENMT: Ears: no hearing impairment Neck: no nuchal rigidity Respiratory: able to speak in complete sentences; no respiratory distress, no labored breathing and no cough Auscultation: + crackles (1/2 way BL posterior li) Cardiovascular: Rate/Rhythm: regular rate and regular rhythm Extremities: + edema (1-2+ BLE) Gastrointestinal (Abdomen): Inspection/Auscultation: abdomen normal to inspection; abdomen not distended Percussion/Palpation: abdomen soft; abdomen nontender and no guarding Musculoskeletal: chapman, fluent speech Skin: no rashes, warm and dry + ecchymosis Neurologic: chapman, fluent speech; some trouble remembering phone #s Psychiatric: Orientation: alert and oriented x 3 Apperance: appropriately dressed and appropriately groomed Eye Contact: good eye contact Speech: normal rate/rhythm/volume of speech Genitourinary: no retana Results & Data Laboratory Results Abnormal lab results 10/15/18 10/15/18 10/16/18 Range/Units 16:50 17:15 01:20 RBC (4.2-5.4) M/uL Hgb (12.0-16.0) g/dL Hct (37-47) % MCHC (32-36) g/dL RDW Std Deviation (36.4-46.3) fL RDW Coeff of Mykel (11.5-14.5) % Lymph # (Auto) (1.2-3.4) K/uL Adams # (Auto) (0.11-0.59) K/uL PT (9.0-12.0) Seconds INR (0.9-1.1) BUN (7-18) mg/dl Creatinine (0.6-1.2) mg/dl BUN/Creatinine Ratio (10-20) Glucose (70-99) mg/dl Troponin I 0.056 H* (0-0.045) ng/ml TSH 4.520 H (0.300-4.500) uIu/ml Ur Leukocyte Esterase 3+ H (Negative) Urine WBC (Auto) >30 H (0-5) /hpf U Epithel Cells (Auto) 10-20 H (0-5) /lpf 10/16/18 10/16/18 10/16/18 Range/Units 07:08 07:08 07:08 RBC 3.24 L (4.2-5.4) M/uL Hgb 8.9 L (12.0-16.0) g/dL Hct 28.6 L (37-47) % MCHC 31.1 L (32-36) g/dL RDW Std Deviation 57.4 H (36.4-46.3) fL RDW Coeff of Mykel 17.7 H (11.5-14.5) % Lymph # (Auto) 1.12 L (1.2-3.4) K/uL Adams # (Auto) 0.76 H (0.11-0.59) K/uL PT 20.9 H (9.0-12.0) Seconds INR 2.2 H (0.9-1.1) BUN 61 H (7-18) mg/dl Creatinine 3.01 H (0.6-1.2) mg/dl BUN/Creatinine Ratio 20.2 H (10-20) Glucose 113 H (70-99) mg/dl Troponin I (0-0.045) ng/ml TSH (0.300-4.500) uIu/ml Ur Leukocyte Esterase (Negative) Urine WBC (Auto) (0-5) /hpf U Epithel Cells (Auto) (0-5) /lpf Diagnostic Findings Head CT > no acute ic process CXR > no acute cp process (1) CHF (congestive heart failure) Heart failure chronicity: acute on chronic Heart failure type: unspecified Qualified Code(s): I50.9 - Heart failure, unspecified (2) Acute on chronic renal failure Acute renal failure type: unspecified Chronic kidney disease stage: stage 4 (severe) Qualified Code(s): N17.9 - Acute kidney failure, unspecified; N18.4 - Chronic kidney disease, stage 4 (severe)
[2018-10-16] MEDS ORDERED: FUROSEMIDE 40 MG in SYRINGE 0 ML IV ONE (19:00)
[2018-10-16] MEDS: SENNA 8.6 MG TAB PO SCH (20:43)
[2018-10-17] MEDS: FUROSEMIDE 40 MG in SYRINGE 0 ML IV SCH ×3 (06:33→17:54)
[2018-10-17] MEDS: METOPROLOL TARTRATE 50 MG TAB PO SCH ×2 (08:02→20:13)
[2018-10-17] MEDS: CEROVITE ADV FORMULA TAB PO SCH (08:02)
[2018-10-17] MEDS: DONEPEZIL HCL 5 MG TAB PO SCH (08:02)
[2018-10-17] MEDS: ATORVASTATIN 40 MG TAB PO SCH (08:02)
[2018-10-17] MEDS: FERROUS SULFATE 325 MG TAB PO SCH (08:03)
[2018-10-17] MEDS ORDERED: FUROSEMIDE 40 MG TAB PO SCH (09:00)
[2018-10-17 09:25] LABS: BUN Creatinine Ratio 21.3 (10-20); Creatinine Clr Calc Pharmacy 11.5 ml/min; Est GFR (African American) 16.5; Est GFR (Non-African American) 14.2; Potassium 3.4 mmol/L (3.5-5.1)
--- NOTE | 2018-10-17 13:55 | Hospitalist Progress Note ---
Date of Service October 17, 2018 Assessment & Plan (1) Acute diastolic CHF (congestive heart failure): Cont current diuresis, daily weights, salt rand fluid restriction. Cont home cardiac meds including ASA, Lipitor, Lopressor. (2) Metabolic encephalopathy: resolved. (3) Acute UTI: Rocephin empirically, UCx resulted in E. faecalis. Transitioned to cefdinir BID (4) SEUN (acute kidney injury): Persistent, not at baseline. Noted recent Bactrim use as outpatient, fluid overload on exam his clinical picture consistent with acute congestive heart failure. Continue daily standing weights, continue IV diuretics, continue 2 g daily sodium restriction, continue fluid restriction per nephrology. (5) CAD (coronary artery disease): Mildly elevated troponin 0 0.056 which is flat on repeat without rise likely secondary to demand ischemia in setting of fluid overload with severe tricuspid regurgitation, as seen on echocardiogram in August 2018. Ejection fraction is known to be normal with EF of 55-60%. She remans asymptomatic without chest pain or difficulty breathing today. No events on telemetry review, V-paced rhythm. (6) CKD (chronic kidney disease) stage 4, GFR 15-29 ml/min: Plan for SEUN as above. Nephrology following. (7) Atrial fibrillation: On coumadin, therapeutic. Rate controlled with Lopressor. Daily INR (8) DVT prophylaxis: Coumadin therapeutic Full Code Dispo-cont telemetry DO [facility] Subjective Reports feeling better today Denies abdominal pain Denies UTI symptoms Tolerating PO Mentating clearly Family at bedside I contacted daughter, Baylee, by phone with an update. Physical Exam Vital Signs (Past 24 Hours): Last Vital Signs Temp 36.8 C 10/17/18 11:17 Pulse 72 10/17/18 11:17 Resp 18 10/17/18 11:17 BP 124/70 10/17/18 11:17 Pulse Ox 99 10/17/18 11:17 CONSTITUTIONAL: WNWD, vitals as above, generally well-appearing EYES: normal conjuctivae, no scleral icterus ENT: MMM RESPIRATORY: clear to auscultation bilaterally, no crackles, rales or wheezes, normal respiratory effort CARDIOVASCULAR: regular rate and rhythm, 3/6 SUSSY, no gallops or rubs, no JVD, no peripheral edema GASTROINTESTINAL: soft, nontender, nondistended MUSCULOSKELETAL: strength 5/5 throughout, head is normocephalic and atraumatic SKIN: warm and dry NEUROLOGIC: CN 2-12 grossly intact, no sensory deficit, normal cognition, normal speech, no gross focal deficits. PSYCHIATRIC: alert cooperative and oriented to person, place and time. Results & Data Laboratory Results [facility] 10/17/18 08:28 Sodium 136 Potassium 3.4 L Chloride 99 Carbon Dioxide 28 BUN 61 H Creatinine 2.87 H Glucose 101 H Calcium 9.0 Medications Administered Current Inpatient Medications Acetaminophen (Tylenol) 650 mg PO Q4 PRN PRN Reason: Fever Or Pain Stop: 11/14/18 22:29 Aspirin (Ecotrin Ectab) 81 mg PO MoWeFr@0900 [facility] Stop: 11/15/18 08:59 Last Admin: 10/16/18 07:58 Dose: 81 mg Documented by: Atorvastatin Calcium (Lipitor) 80 mg PO QAM [facility] Stop: 11/15/18 08:59 Last Admin: 10/17/18 08:02 Dose: 80 mg Documented by: Donepezil HCl (Aricept) 5 mg PO QAM [facility] Stop: 11/15/18 08:59 Last Admin: 10/17/18 08:02 Dose: 5 mg Documented by: Ferrous Sulfate (Feosol) 325 mg PO DAILY [facility] Stop: 11/15/18 08:59 Last Admin: 10/17/18 08:03 Dose: 325 mg Documented by: Hydralazine HCl (Apresoline) 10 mg PO BID [facility] Stop: 11/14/18 22:44 Last Admin: 10/16/18 07:57 Dose: 10 mg Documented by: Prochlorperazine 5 mg/ Syringe 5 mls @ 5 mls/min IV Q6H PRN PRN Reason: Nausea And Vomiting Stop: 11/14/18 22:29 Ceftriaxone Sodium 1,000 mg/ (Dextrose) 50 mls @ 100 mls/hr IV Q24H [facility]; Protocol Stop: 10/21/18 17:59 Last Infusion: 10/16/18 17:58 Dose: Infused Documented by: Furosemide 40 mg/ Syringe 4 mls @ 4 mls/min IV TID@0600,1200,1800 [facility] Stop: 11/16/18 05:59 Last Admin: 10/17/18 12:52 Dose: 4 mls/min Documented by: Metoprolol Tartrate (Lopressor) 25 mg PO BID [facility] Stop: 11/15/18 08:59 Last Admin: 10/17/18 08:02 Dose: 25 mg Documented by: Multivitamins/Minerals (Multivitamin W/ Minerals Tab) 1 tab PO QAM [facility] Stop: 11/15/18 08:59 Last Admin: 10/17/18 08:02 Dose: 1 tab Documented by: Nitroglycerin (Nitrostat) 0.4 mg SL UD PRN PRN Reason: Chest Pain Stop: 11/14/18 22:29 Oxycodone HCl (Roxicodone Immediate Rel) 5 mg PO Q6H PRN PRN Reason: MOD-SEVERE PAIN Stop: 10/29/18 22:29 Polyethylene Glycol (Miralax Powder Packet) 17 gm PO DAILY PRN PRN Reason: Constipation Stop: 11/14/18 22:29 Sennosides (Senokot) 8.6 mg PO HS [facility] Stop: 11/15/18 20:59 Last Admin: 10/16/18 20:43 Dose: 8.6 mg Documented by: Tramadol HCl (Ultram) 25 mg PO Q4H PRN PRN Reason: Pain Stop: 11/14/18 22:29
--- NOTE | 2018-10-17 19:15 | Nephrology Progress Note ---
Date of Service October 17, 2018 Assessment & Plan (1) Acute on chronic renal failure: baseline creatinine as of mid Sep had been low - mid 2's; creat 3.0 on presentation. Cr down to 2.8 today. -some creat elevation may be d/t bactrim therapy -daily bmp -bladder scan prn -diuretics as below (2) Recurrent UTI: -challenging situation to diagnose >> has had repeated courses of abtx past month which do not clear infection and may worsen renal function -in past month as outpt has had e coli reyes se, enterococcus (most recent), and multiple james + on urine cxs >> not clear to me that we can get a clean specimen in this pt or that we can treat for UTI based on sx of confusion in pt w/ dementia; need to rework OP urine testing; extra challenging b/c of dementia and of obligate diuretics -for now cont ceftriaxone since she is ill/ in house -f/u OP urine cx sensi's -recommend estrogen cream intravaginal 2 x weekly (3) CHF (congestive heart failure): reported 9 lb wt gain though no record of her wts. her wts in clinic were better than at hospital d/c last month. -was on torsemide 100 mg daily prior to admission since 09/21 and had been tolerating as of 10/01 -Continue lasix IV 40 mg tid and follow -needs daily STANDING wt when able - so ordered -1.8L fluid limit for now Subjective Patient with CKD and volume overload seen in follow up. She feels beyyer today. No SOB. Still has leg swelling. Urine output is good. She was sitting up in chair Review of Systems All systems reviewed & are unremarkable except as noted in HPI & below Physical Exam Vital Signs (Past 24 Hours): Last Vital Signs Temp 36.9 C 10/17/18 15:00 Pulse 70 10/17/18 15:00 Resp 20 10/17/18 15:00 BP 123/66 10/17/18 15:00 Pulse Ox 98 10/17/18 15:00 Physical Exam: General exam: Appears comfortable, no acute distress HEENT: Pupils are equal and reactive to light Neck: No JVD, neck is supple trachea is midline Respiratory system: Clear breath sounds bilaterally. Gastrointestinal: Abdomen is soft, non distended, non tender, bowel sounds are present CVS: Regular rate and rhythm. No murmurs, rubs or gallops Musculoskeletal: No joint or muscle tenderness Extremities: Non tender, 2+ edema, peripheral pulses are present Neuro: Oriented, no tremors, no focal neurological deficits Skin: No rashes Results & Data Laboratory Results Cr 2.8 down from 3 yesterday (1) Acute on chronic renal failure Acute renal failure type: unspecified Chronic kidney disease stage: stage 4 (severe) Qualified Code(s): N17.9 - Acute kidney failure, unspecified; N18.4 - Chronic kidney disease, stage 4 (severe) (2) CHF (congestive heart failure) Heart failure chronicity: acute on chronic Heart failure type: unspecified Qualified Code(s): I50.9 - Heart failure, unspecified
[2018-10-17] MEDS: CEFDINIR 300 MG CAP PO SCH (20:11)
[2018-10-17] MEDS: SENNA 8.6 MG TAB PO SCH (20:12)
[2018-10-17] MEDS ORDERED: WARFARIN SOD 2 MG TAB PO STA (22:13)
[2018-10-18] MEDS: FUROSEMIDE 40 MG in SYRINGE 0 ML IV SCH (06:24)
[2018-10-18 07:32] LABS: INR 1.4 (0.9-1.1); Prothrombin Time 13.6 Seconds (9.0-12.0)
[2018-10-18 07:34] LABS: Hematocrit (blood only) 28.3 % (37-47); Hemoglobin 9.1 g/dL (12.0-16.0); Mean Corpuscular Hgb Conc 32.2 g/dL (32-36); Mean Corpuscular Volume 87.9 fL (80-100); Mean Platelet Volume 10.5 fL (7.4-10.4); Platelet Count 146 K/uL (130-400); RDW Coefficient of Variation 17.8 % (11.5-14.5); RDW Standard Deviation 57.3 fL (36.4-46.3); Red Blood Count 3.22 M/uL (4.2-5.4)
[2018-10-18 07:49] LABS: Albumin Level 3.1 gm/dl (3.4-5.0); Calcium 8.9 mg/dl (8.5-10.1); Est GFR (African American) 19.2; Est GFR (Non-African American) 16.6; Phosphorus 4.1 mg/dl (2.5-4.9); Potassium 3.6 mmol/L (3.5-5.1)
[2018-10-18] MEDS: METOPROLOL TARTRATE 50 MG TAB PO SCH (08:27)
[2018-10-18] MEDS: CEROVITE ADV FORMULA TAB PO SCH (08:27)
[2018-10-18] MEDS: DONEPEZIL HCL 5 MG TAB PO SCH (08:27)
[2018-10-18] MEDS: ATORVASTATIN 40 MG TAB PO SCH (08:27)
[2018-10-18] MEDS: FERROUS SULFATE 325 MG TAB PO SCH (08:27)
[2018-10-18] MEDS: CEFDINIR 300 MG CAP PO SCH (08:27)
--- NOTE | 2018-10-18 09:19 | Hospitalist Progress Note ---
Date of Service October 18, 2018 Assessment & Plan (1) Acute diastolic CHF (congestive heart failure): Cont current diuresis, daily weights, salt rand fluid restriction. Cont home cardiac meds including ASA, Lipitor, Lopressor. (2) Metabolic encephalopathy: resolved. (3) Acute UTI: Rocephin empirically, UCx resulted in E. faecalis. Transitioned to cefdinir BID (4) SEUN (acute kidney injury): Persistent, not at baseline. Noted recent Bactrim use as outpatient, fluid overload on exam his clinical picture consistent with acute congestive heart failure. Continue daily standing weights, continue IV diuretics, continue 2 g daily sodium restriction, continue fluid restriction per nephrology. (5) CAD (coronary artery disease): Mildly elevated troponin 0 0.056 which is flat on repeat without rise likely secondary to demand ischemia in setting of fluid overload with severe tricuspid regurgitation, as seen on echocardiogram in August 2018. Ejection fraction is known to be normal with EF of 55-60%. She remans asymptomatic without chest pain or difficulty breathing today. No events on telemetry review, V-paced rhythm. (6) CKD (chronic kidney disease) stage 4, GFR 15-29 ml/min: Plan for SEUN as above. Nephrology following. (7) Atrial fibrillation: On coumadin, therapeutic. Rate controlled with Lopressor. Daily INR (8) DVT prophylaxis: Coumadin therapeutic Full Code Dispo-cont telemetry DO Lata Huynh Hospitalist Physical Exam Vital Signs (Past 24 Hours): Last Vital Signs Temp 36.6 C 10/18/18 07:13 Pulse 61 10/18/18 07:13 Resp 16 10/18/18 07:13 BP 131/76 10/18/18 07:13 Pulse Ox 95 10/18/18 07:13 Results & Data Laboratory Results Short CBC 10/18/18 Range/Units 07:07 WBC 6.30 (4.8-10.8) K/uL Hgb 9.1 L (12.0-16.0) g/dL Hct 28.3 L (37-47) % Plt Count 146 (130-400) K/uL BMP 10/17/18 10/18/18 10/18/18 08:28 06:59 06:59 Sodium 136 135 L Cancelled Potassium 3.4 L 3.6 Cancelled Chloride 99 99 Cancelled Carbon Dioxide 28 26 Cancelled BUN 61 H 63 H Cancelled Creatinine 2.87 H 2.53 H D Cancelled Glucose 101 H 87 Cancelled Calcium 9.0 8.9 Cancelled Liver Function 10/18/18 Range/Units 06:59 Albumin 3.1 L (3.4-5.0) gm/dl Medications Administered Current Inpatient Medications Acetaminophen (Tylenol) 650 mg PO Q4 PRN PRN Reason: Fever Or Pain Stop: 11/14/18 22:29 Aspirin (Ecotrin Ectab) 81 mg PO MoWeFr@0900 [facility] Stop: 11/15/18 08:59 Last Admin: 10/16/18 07:58 Dose: 81 mg Documented by: Atorvastatin Calcium (Lipitor) 80 mg PO QAM [facility] Stop: 11/15/18 08:59 Last Admin: 10/18/18 08:27 Dose: 80 mg Documented by: Cefdinir (Omnicef) 300 mg PO BID [facility] Stop: 10/22/18 20:59 Last Admin: 10/18/18 08:27 Dose: 300 mg Documented by: Donepezil HCl (Aricept) 5 mg PO QAM [facility] Stop: 11/15/18 08:59 Last Admin: 10/18/18 08:27 Dose: 5 mg Documented by: Ferrous Sulfate (Feosol) 325 mg PO DAILY [facility] Stop: 11/15/18 08:59 Last Admin: 10/18/18 08:27 Dose: 325 mg Documented by: Heparin Sodium (Porcine) (Heparin Sodium (Porcine)) 5,000 units SQ Q8 [facility] Stop: 11/17/18 13:59 Hydralazine HCl (Apresoline) 10 mg PO BID [facility] Stop: 11/14/18 22:44 Last Admin: 10/16/18 07:57 Dose: 10 mg Documented by: Furosemide 40 mg/ Syringe 4 mls @ 4 mls/min IV TID@0600,1200,1800 [facility] Stop: 11/16/18 05:59 Last Admin: 10/18/18 06:24 Dose: 4 mls/min Documented by: Metoprolol Tartrate (Lopressor) 25 mg PO BID [facility] Stop: 11/15/18 08:59 Last Admin: 10/18/18 08:27 Dose: 25 mg Documented by: Multivitamins/Minerals (Multivitamin W/ Minerals Tab) 1 tab PO QAM [facility] Stop: 11/15/18 08:59 Last Admin: 10/18/18 08:27 Dose: 1 tab Documented by: Nitroglycerin (Nitrostat) 0.4 mg SL UD PRN PRN Reason: Chest Pain Stop: 11/14/18 22:29 Oxycodone HCl (Roxicodone Immediate Rel) 5 mg PO Q6H PRN PRN Reason: MOD-SEVERE PAIN Stop: 10/29/18 22:29 Polyethylene Glycol (Miralax Powder Packet) 17 gm PO DAILY PRN PRN Reason: Constipation Stop: 11/14/18 22:29 Sennosides (Senokot) 8.6 mg PO HS [facility] Stop: 11/15/18 20:59 Last Admin: 10/17/18 20:12 Dose: 8.6 mg Documented by: Tramadol HCl (Ultram) 25 mg PO Q4H PRN PRN Reason: Pain Stop: 11/14/18 22:29 Warfarin Sodium (Coumadin) 4 mg PO Mo@1600 [facility] Stop: 11/18/18 15:59 Warfarin Sodium (Coumadin) 2 mg PO SuTuWeThFrSa@1600 [facility] Stop: 11/17/18 15:59
--- NOTE | 2018-10-18 12:10 | Nephrology Progress Note ---
Date of Service October 18, 2018 Assessment & Plan (1) Acute on chronic renal failure: baseline creatinine as of mid Sep had been low - mid 2's; creat 3.0 on presentation. Cr stable at 2.8. -some creat elevation may be d/t bactrim therapy -If discharged, will need repeat BMP in a week and renal f/u in 2-[address] Tan -diuretics as below (2) Recurrent UTI: -challenging situation to diagnose >> has had repeated courses of abtx past month which do not clear infection and may worsen renal function -She is on antibiotic course with Cefdnir, renally dosed -recommend estrogen cream intravaginal 2 x weekly (3) CHF (congestive heart failure): reported 9 lb wt gain though no record of her wts. her wts in clinic were better than at hospital d/c last month. -was on torsemide 100 mg daily prior to admission since 09/21 and had been tolerating as of 10/01 -Can be discharged on torsemide 120mg daily until evaluated by Dr. Tan -1.8L fluid limit for now Subjective Patient with CKD and volume overload seen in follow up. She feels better today. No SOB. Still has leg swelling but subsiding. Urine output might not be accurate but weight down trending. She was sitting up in chair Review of Systems All systems reviewed & are unremarkable except as noted in HPI & below Physical Exam Vital Signs (Past 24 Hours): Last Vital Signs Temp 36.6 C 10/18/18 12:00 Pulse 64 10/18/18 12:00 Resp 16 10/18/18 12:00 BP 105/62 10/18/18 12:00 Pulse Ox 98 10/18/18 12:00 Physical Exam: General exam: Appears comfortable, no acute distress HEENT: Pupils are equal and reactive to light Neck: No JVD, neck is supple trachea is midline Respiratory system: Clear breath sounds bilaterally. Gastrointestinal: Abdomen is soft, non distended, non tender, bowel sounds are present CVS: Regular rate and rhythm. No murmurs, rubs or gallops Musculoskeletal: No joint or muscle tenderness Extremities: Non tender, 1+ edema, peripheral pulses are present Neuro: Oriented, no tremors, no focal neurological deficits Skin: No rashes Results & Data Laboratory Results reviewed (1) Acute on chronic renal failure Acute renal failure type: unspecified Chronic kidney disease stage: stage 4 (severe) Qualified Code(s): N17.9 - Acute kidney failure, unspecified; N18.4 - Chronic kidney disease, stage 4 (severe) (2) CHF (congestive heart failure) Heart failure chronicity: acute on chronic Heart failure type: unspecified Qualified Code(s): I50.9 - Heart failure, unspecified
--- NOTE | 2018-10-18 12:12 | Discharge Summary ---
Date of Service October 18, 2018 Admission HPI Per Admitting Provider History obtained from patient, family, and records. Medical history significant for chronic diastolic heart failure (EF 55-60%, TTE 2018), CAD status post stent, A. 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 Today patient noted increased urinary frequency symptoms. Patient noted to be more confused than usual by family and [facility] staff. Bilateral leg swelling, weight gain of 8 pounds in the last week 151 lbs (10/08/18) to 159 lbs today as per detention staff. Patient denies chest pain, SOB, abdominal distention/flank pain; legs unchanged as per family. Patient sent to the ER for evaluation. Receive IV Ceftriaxone and Lasix at the ER. Patient mentation currently improved as per patient family. Medical History as above Surgical History : Knee surgery, carpal tunnel surgery, PPM, shoulder surgery, breast reduction, cataract surgery upper eyelid surgery, back surgery, LEIDA, BSO Family History : Hypertension, melanoma, ankylosing spondylitis Personal/Social history : Non-smoker, no EtOH intake, retired [employer], [facility] assisted living resident Admission Exam Per Admitting Provider GENERAL: Comfortable, eating, slightly hard of hearing, no respiratory distress SKIN: Pallor , warm HEENT: Pale palpebral conjunctivae, no ptosis, dry buccal mucosa NECK : Supple, no tenderness CHEST : CTA, no tenderness HEART : RRR, murmur ABDOMEN: Some distention, nontender EXTREMITIES : mario LE swelling, no LE tenderness, no other conspicuous deformities noted NEUROLOGIC : Coherent, no facial asymmetry, mild hearing impairment, gait and stance not assessed Principal Diagnosis metabolic encephalopathy demand ischemia UTI Acute diastolic heart failure exacerbation Acute kidney injury CKD Stage IV Discharge Data Allergies Allergy/AdvReac Type Severity Reaction Status Date / Time lisinopril Allergy Mild OTHER Verified 10/15/18 16:56 adhesive Allergy Unknown . Verified 10/15/18 16:56 amiodarone Allergy Unknown . Verified 10/15/18 16:56 Consultations 10/15/18 19:21 ED Decision to Admit Stat 10/15/18 22:30 Consult Nephrology Routine Ordered Studies 10/15/18 16:53 CT head/brain wo con Stat Hospital Course (1) Acute diastolic CHF (congestive heart failure): (2) Metabolic encephalopathy: (3) Acute UTI: (4) SEUN (acute kidney injury): (5) CAD (coronary artery disease): (6) CKD (chronic kidney disease) stage 4, GFR 15-29 ml/min: (7) Atrial fibrillation: 88-year-old female presented to the ER with acute confusion as well as bilateral leg swelling for 4 days and an 8 pound weight gain. On arrival vital signs were stable and she was afebrile oxygenating well on room air. Bilateral 2+ pitting edema was noted on exam. She was given 40 mg of IV Lasix and started on Rocephin empirically for UTI pending urine culture results. She was admitted to the hospitalist service. Initial lab work revealed a creatinine of 3.03 up from her baseline of approximately 2.2. She has a known history of stage IV CKD. Nephrology was consulted and recommended continued diuresis. She was placed on Lasix 40 mg IV [address] of torsemide 100 p.o. daily. On hospital day 2 she improved from a confusion standpoint, thought to be secondary to metabolic encephalopathy in the setting of infection. Urine culture revealed Enterococcus faecalis with resistance to ciprofloxacin, gentamicin, levof loxacin. She was transition to cefdinir 300 mg p.o. twice daily. Daily weights reflected 2-3 pound weight loss with diuresis. She was kept on 1800 cc fluid restriction daily as well as a low potassium and low sodium diet while hospitalized. Her kidney function continued to improve with a BUN 63 and creatinine 2.53 on day of discharge. At this time she was clinically improved, asymptomatic, compensated from a heart failure standpoint with resolution of edema and swelling. She was sent back to [facility] in stable condition. Her torsemide was adjusted and increased to 120 mg p.o. daily, with repeat renal panel ordered within 1 week's time. 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 Ya Hu, whom she should follow with in 2-4 weeks. Additionally her INR was subtherapeutic at 1.4 at time of discharge. It was recommended that she increase her dose to 4 mg on day of discharge and the day after, 10/18 and 10/19, then resume 2 mg daily dosing as previously instructed. It is recommended that [facility] staff check her INR level within 2 days time and send the results to her primary care doctor for further adjustment if needed. At time of discharge he was mentating and ambulating at baseline. She was cleared by physical therapy to return home to [facility] once medically stable. She was tolerating p.o., vital signs were stable and she was afebrile. She was sent home in stable condition with close follow-up as above. Of note troponin was found to be elevated on admission, and this is consistent with previous admissions. In the setting of infection initial troponin was 0.056, with following troponin exactly the same. Cardiac workup was not thought necessary as this was considered to be demand ischemia in the setting of infection with known valvular disease. Total Time Total Time Spent Total Time Spent (In Minutes): 60 Total Time Includes: Examination of the Patient, Discharge Planning, Medication Reconciliation and Communication With Other Providers Discharge Plan Discharge Items Patient Disposition: Personal Correction Reason For Visit: ENCEPHALOPATHY,ELEVATED TROPONIN Discharge Diagnosis: metabolic encephalopathy demand ischemia UTI Acute diastolic heart failure exacerbation Acute kidney injury CKD Stage IV Condition: Good Discharge Goals: Improve disease control Activity: Resume your previous activity Non-emergency contact: Primary Care Provider Call non-emergency contact if: you have any medication questions, your symptoms worsen, your pain is not controlled, your pain is worsening, your pain is unusual for you, your pain is concerning for you and you have a fever Follow-up/Referrals: Ya Tan MD, PhD [Physician] - Camilo Randall [Primary Care Provider] - Diet: Low Sodium (2gm) Fluids: 1800ml (7 cups) Addtl Provider Instructions: Please take all medications as instructed on discharge summary below. Your INR was subtherapeutic (1.4) at time of discharge, with goal range 2-3. Please take a double dose of Coumadin for the next 2 days and then resume original Coumadin scheduling. Therefore, you will take 4 mg today and tomorrow, then resume 2 mg daily dosing as previously instructed. Staff at [facility] should draw your INR level on 10/20, and this result should be sent to your primary care provider for adjustment of your coumadin if needed. It is recommended that you follow-up with Dr. Hu within 2-4 weeks after discharge. It is recommended that you follow-up with your primary care doctor within 1 week of discharge. Someone from our staff will contact you on Friday to set this up. You received a lab prescription at discharge which will need to be performed in 1 week. You do not have to fast prior to these labs. Please continue to measure your weight daily on the same standing scale. Please notify your provider if you gain more than 5 pounds in 2 days time. Please continue fluid restriction as above, along with low salt diet. It was a pleasure taking care of you! Please call if you have any questions or problems. You can reach a [facility] hospitalist on duty at [facility] 24 hours a day by calling [phone]. Take care of yourself. Jeannette Lovtet, DO [facility] Prescriptions: New cefdinir 250 mg/5 mL suspension for reconstitution 300 mg PO BID 5 Days Qty: 60 RF: 0 torsemide 20 mg tablet 20 mg PO DAILY Qty: 30 RF: 1 Continued atorvastatin 80 mg tablet 80 mg PO QAM RF: 0 donepezil 5 mg tablet 5 mg PO QAM RF: 0 polyethylene glycol 3350 [Miralax] 17 gram Powder In Packet 17 g PO DAILY PRN (Reason: Constipation) RF: 0 aspirin [Aspir-81] 81 mg Tablet,Delayed Release (Dr/Ec) 81 mg PO 3XWK RF: 0 metoprolol tartrate 50 mg tablet 50 mg PO QAM RF: 0 ferrous sulfate 325 mg (65 mg iron) Tablet 325 mg PO QAM RF: 0 sennosides [Senokot] 8.6 mg tablet 8.6 mg PO HS Qty: 30 RF: 0 docusate sodium [Colace] 100 mg capsule 100 mg PO BID Qty: 60 RF: 0 hydralazine 25 mg tablet 10 mg PO BID RF: 0 warfarin [Coumadin] 4 mg Tablet 4 mg PO WK RF: 0 torsemide 100 mg Tablet 100 mg PO DAILY RF: 0 warfarin [Coumadin] 2 mg Tablet 2 mg PO 6XWK RF: 0 acetaminophen [Mapap (acetaminophen)] 500 mg Capsule 500 mg PO TID RF: 0 Cerovite Advanced Formula 18-400 mg-mcg Tablet 1 tab PO QAM RF: 0 acetaminophen [Tylenol] 325 mg Tablet 650 mg PO Q4 PRN (Reason: Fever Or Pain) RF: 0 ondansetron HCl [Zofran] 4 mg Tablet 4 mg PO Q4 PRN (Reason: Nausea And Vomiting) RF: 0 magnesium hydroxide [Milk of Magnesia] 400 mg/5 mL Suspension 30 ml PO UD PRN (Reason: Constipation) RF: 0 bisacodyl [Dulcolax (bisacodyl)] 10 mg Suppository 10 mg [place] DAILY PRN (Reason: Constipation) RF: 0 melatonin 5 mg Tablet 5 mg PO HS PRN (Reason: Sleep) RF: 0 oxycodone 5 mg Tablet, Oral Only 5 mg PO Q6 PRN (Reason: MOD-SEVERE PAIN) RF: 0 Discontinued sulfamethoxazole-trimethoprim 800-160 mg tablet 1 tab PO BID RF: 0 Stand-Alone Forms: [facility] Discharge Orders: Discharge Order (Routine); Ordered 10/18/18 Ordered By: Jeannette Lovett Admission Data Admit Date/Time: 10/15/18 21:19 Attending Provider: Jeannette Loevtt Admit Provider: Claudio Lewis Primary Care Provider: Camilo Randall Other Providers: Claudio Lewis ; Ya Tan ; Nigel Frye ; Vicky Talbot I ; Briseida Varghese ; Kaila Shane ; Luz Elena Tripathi Service: Telemetry
--- NOTE | 2018-10-18 12:43 | Discharge Summary ---
Date of Service October 18, 2018 Admission HPI Per Admitting Provider History obtained from patient, family, and records. Medical history significant for chronic diastolic heart failure (EF 55-60%, TTE 2018), CAD status post stent, A. 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 Today patient noted increased urinary frequency symptoms. Patient noted to be more confused than usual by family and [facility] staff. Bilateral leg swelling, weight gain of 8 pounds in the last week 151 lbs (10/08/18) to 159 lbs today as per [facility] staff. Patient denies chest pain, SOB, abdominal distention/flank pain; legs unchanged as per family. Patient sent to the ER for evaluation. Receive IV Ceftriaxone and Lasix at the ER. Patient mentation currently improved as per patient family. 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 Verified 10/15/18 16:56 amiodarone Allergy Unknown . Verified 10/15/18 16:56 Consultations 10/15/18 19:21 ED Decision to Admit Stat 10/15/18 22:30 Consult Nephrology Routine Ordered Studies 10/15/18 16:53 CT head/brain wo con Stat Hospital Course (1) Acute diastolic CHF (congestive heart failure): Cont current diuresis, daily weights, salt rand fluid restriction. Cont home cardiac meds including ASA, Lipitor, Lopressor. (2) Metabolic encephalopathy: resolved. (3) Acute UTI: Rocephin empirically, UCx resulted in E. faecalis. Transitioned to cefdinir BID (4) SEUN (acute kidney injury): Persistent, not at baseline. Noted recent Bactrim use as outpatient, fluid overload on exam his clinical picture consistent with acute congestive heart failure. Continue daily standing weights, continue IV diuretics, continue 2 g daily sodium restriction, continue fluid restriction per nephrology. (5) CAD (coronary artery disease): Mildly elevated troponin 0 0.056 which is flat on repeat without rise likely secondary to demand ischemia in setting of fluid overload with severe tricuspid regurgitation, as seen on echocardiogram in August 2018. Ejection fraction is known to be normal with EF of 55-60%. She remans asymptomatic without chest pain or difficulty breathing today. No events on telemetry review, V-paced rhythm. (6) CKD (chronic kidney disease) stage 4, GFR 15-29 ml/min: Plan for SEUN as above. Nephrology following. (7) Atrial fibrillation: 88-year-old female presented to the ER with acute confusion as well as bilateral leg swelling for 4 days and an 8 pound weight gain. On arrival vital signs were stable and she was afebrile oxygenating well on room air. Bilateral 2+ pitting edema was noted on exam. She was given 40 mg of IV Lasix and started on Rocephin empirically for UTI pending urine culture results. She was admitted to the hospitalist service. Initial lab work revealed a creatinine of 3.03 up from her baseline of approximately 2.2. She has a known history of stage IV CKD. Nephrology was consulted and recommended continued diuresis. She was placed on Lasix 40 mg IV [address] of torsemide 100 p.o. daily. On hospital day 2 she improved from a confusion standpoint, thought to be secondary to metabolic encephalopathy in the setting of infection. Urine culture revealed Enterococcus faecalis with resistance to ciprofloxacin, gentamicin, levofloxacin. She was transition to cefdinir 300 mg p.o. twice daily. Daily weights reflected 2-3 pound weight loss with diuresis. She was kept on 1800 cc fluid restriction daily as well as a low potassium and low sodium diet while hospitalized. Her kidney function continued to improve with a BUN 63 and creatinine 2.53 on day of discharge. At this time she was clinically improved, asymptomatic, compensated from a heart failure standpoint with resolution of edema and swelling. She was sent back to [facility] in stable condition. Her torsemide was adjusted and increased to 120 mg p.o. daily, with repeat renal panel ordered within 1 week's time. This should be reviewed by her porter head, Dr. Ya Hu, whom she should follow with in 2-4 weeks. Additionally her INR was subtherapeutic at 1.4 at time of discharge. It was recommended that she increase her dose to 4 mg on day of discharge and the day after, 10/18 and 10/19, then resume 2 mg daily dosing as previously instructed. It is recommended that [facility] staff check her INR level within 2 days time and send the results to her primary care doctor for further adjustment if needed. A t time of discharge he was mentating and ambulating at baseline. She was cleared by physical therapy to return home to [facility] once medically stable. She was tolerating p.o., vital signs were stable and she was afebrile. She was sent home in stable condition with close follow-up as above. Of note troponin was found to be elevated on admission, and this is consistent with previous admissions. In the setting of infection initial troponin was 0.056, with following troponin exactly the same. Cardiac workup was not thought necessary as this was considered to be demand ischemia in the setting of infection with known valvular disease. Discharge Plan Discharge Items Patient Disposition: Personal Mcfp Reason For Visit: ENCEPHALOPATHY,ELEVATED TROPONIN Discharge Diagnosis: metabolic encephalopathy demand ischemia UTI Acute diastolic heart failure exacerbation Acute kidney injury CKD Stage IV Condition: Good Discharge Goals: Improve disease control Activity: Resume your previous activity Non-emergency contact: Primary Care Provider Call non-emergency contact if: you have any medication questions, your symptoms worsen, your pain is not controlled, your pain is worsening, your pain is unusual for you, your pain is concerning for you and you have a fever Follow-up/Referrals: Ya Tan MD, PhD [Physician] - Camilo Randall [Primary Care Provider] - Diet: Low Sodium (2gm) Fluids: 1800ml (7 cups) Other Ambulatory Orders: Basic Metabolic Panel (Routine) Timeframe: 1 Week Location: Determined by Patient Ordered By: Jeannette Lovett Prothrombin Time INR (Routine) Timeframe: 2 Days Location: Determined by Patient Ordered By: Jeannette Lovett Addtl Provider Instructions: Please take all medications as instructed on discharge summary below. Your INR was subtherapeutic (1.4) at time of discharge, with goal range 2-3. Please take a double dose of Coumadin for the next 2 days and then resume original Coumadin scheduling. Therefore, you will take 4 mg today and tomorrow, then resume 2 mg daily dosing as previously instructed. Staff at [facility] should draw your INR level on 10/20, and this result should be sent to your primary care provider for adjustment of your coumadin if needed. It is recommended that you follow-up with Dr. Hu within 2-4 weeks after discharge. It is recommended that you follow-up with your primary care doctor within 1 week of discharge. Someone from our staff will contact you on Friday to set this up. You received a lab prescription at discharge which will need to be performed in 1 week. You do not have to fast prior to these labs. Please continue to measure your weight daily on the same standing scale. Please notify your provider if you gain more than 5 pounds in 2 days time. Please continue fluid restriction as above, along with low salt diet. It was a pleasure taking care of you! Please call if you have any questions or problems. You can reach a [facility] hospitalist on duty at [facility] 24 hours a day by calling [phone]. Take care of yourself. Jeannette Lovett, DO [facility] Hospitalist Prescriptions: New cefdinir 250 mg/5 mL suspension for reconstitution 300 mg PO BID 5 Days Qty: 60 RF: 0 torsemide 20 mg tablet 20 mg PO DAILY Qty: 30 RF: 1 Continued atorvastatin 80 mg tablet 80 mg PO QAM RF: 0 donepezil 5 mg tablet 5 mg PO QAM RF: 0 polyethylene glycol 3350 [Miralax] 17 gram Powder In Packet 17 g PO DAILY PRN (Reason: Constipation) RF: 0 aspirin [Aspir-81] 81 mg Tablet,Delayed Release (Dr/Ec) 81 mg PO 3XWK RF: 0 metoprolol tartrate 50 mg tablet 50 mg PO QAM RF: 0 ferrous sulfate 325 mg (65 mg iron) Tablet 325 mg PO QAM RF: 0 sennosides [Senokot] 8.6 mg tablet 8.6 mg PO HS Qty: 30 RF: 0 docusate sodium [Colace] 100 mg capsule 100 mg PO BID Qty: 60 RF: 0 hydralazine 25 mg tablet 10 mg PO BID RF: 0 warfarin [Coumadin] 4 mg Tablet 4 mg PO WK RF: 0 torsemide 100 mg Tablet 100 mg PO DAILY RF: 0 warfarin [Coumadin] 2 mg Tablet 2 mg PO 6XWK RF: 0 acetaminophen [Mapap (acetaminophen)] 500 mg Capsule 500 mg PO TID RF: 0 Cerovite Advanced Formula 18-400 mg-mcg Tablet 1 tab PO QAM RF: 0 acetaminophen [Tylenol] 325 mg Tablet 650 mg PO Q4 PRN (Reason: Fever Or Pain) RF: 0 ondansetron HCl [Zofran] 4 mg Tablet 4 mg PO Q4 PRN (Reason: Nausea And Vomiting) RF: 0 magnesium hydroxide [Milk of Magnesia] 400 mg/5 mL Suspension 30 ml PO UD PRN (Reason: Constipation) RF: 0 bisacodyl [Dulcolax (bisacodyl)] 10 mg Suppository 10 mg [place] DAILY PRN (Reason: Constipation) RF: 0 melatonin 5 mg Tablet 5 mg PO HS PRN (Reason: Sleep) RF: 0 oxycodone 5 mg Tablet, Oral Only 5 mg PO Q6 PRN (Reason: MOD-SEVERE PAIN) RF: 0 Discontinued sulfamethoxazole-trimethoprim 800-160 mg tablet 1 tab PO BID RF: 0 Stand-Alone Forms: [facility] Discharge Orders: Discharge Order (Routine); Ordered 10/18/18 Ordered By: Jeannette Lovett Admission Data Admit Date/Time: 10/15/18 21:19 Attending Provider: Jeannette Lovett Admit Provider: Claudio Lewis Primary Care Provider: Camilo Randall Other Providers: Claudio Lewis ; Ya Tan ; Nigel Frye ; Vicky Talbot I ; Briseida Varghese ; Kaila Shane ; Luz Elena Tripathi Service: Telemetry
[2018-10-18] MEDS ORDERED: HEPARIN SOD 5,000 UNIT/0.5 ML VIAL SQ SCH (14:00)
[2018-10-18] MEDS ORDERED: WARFARIN SOD 2 MG TAB PO SCH (16:00)
[2018-10-19] MEDS ORDERED: WARFARIN SOD 4 MG TAB PO SCH (16:00)
== END 2018-10-18 14:02 | disposition home or self-care (01) | DRG 682 ==
LOC: ED 16:26 → 2W 21:19